=== PATIENT | female | born 1950 | race Caucasian/White ===

== ENCOUNTER 2020-10-27 12:05 | Emergency (ER) | payer OTHER ==
--- OUTSIDE RECORDS SUMMARY | 2020-10-27 12:08 | XMS REPORT | Continuity of Care Document ---
:1950 Author Organization [facility] t Address [address] [place] [address] Care Team Providers Name Role Phone Angie VALDEZ Primary Care Physician Russ Adams MD Attending Clinician Only, Test Attending Clinician Unavailable Doctor Unassigned, Name Attending Clinician Unavailable Payers Payer Name Policy Type Policy Number Effective Date Expiration Date S ource Problems This patient has no known problems. Allergies, Adverse Reactions, Alerts Allergy Allergy Status Severity Reaction(s) Onset Inactive Treating Comm ents Source Name Type Date Date Clinician meperidi DA Active [facility] ne 2-04 Clear 00:00: Mg 00 [facility] Meperidi Propensi Active Other (See [facility] ty to Comments) 724 ory Methodi adverse 00:00: Distress st reaction 00 s to drug Family History Family Member Diagnosis Comments Start Date Stop Date Source Natural father Emphysema [facility] Natural father Parkinsonism Vladimir Rios Maternal grandfather Hearing loss Ho nikos Rios Maternal grandmother Hearing loss [facility] Caodaism Natural mother Thyroid cancer [place] [facility]oda[facility] Social History Social Habit Start Date Stop Date Quantity Comments [facility] Alcohol Std Drinks History [facility] Meth odist Alcohol Binge Sex Assigned At [facility] ethodist Tobacco use and 2018-12-16 2018-12-16 Never used Vladimir Jalloh ethodist exposure 00:00:00 00:00:00 Alcohol intake 2018-12-16 2018-12-16 Current Vladimir Sim thodist 00:00:00 00:00:00 non-drinker of alcohol (finding) History SDOH 2018-12-15 2018-12-15 1 Vladimir Meth odist Alcohol Frequency 00:00:00 00:00:00 Smoking Status Start Date Stop Date Source Never smoker Gilbert Methodis t Medications Ordered Filled Start Stop Current Ordering Indication Dosage Frequency Signature Comments Components Source Medication Medication Date Date Medication? Clinician (SIG) Name Name guaiFENesin Yes 200mg [id number] Take 200 Gilbert (ROBITUSSIN 2-15 [id number] mg by Shubham crowe ) 100 mg/5 13:11: 3D mouth 3 st mL syrup 49 (three) times a day as needed for cough. fluticasone Yes 2{spray QD 2 sprays Gilbert (FLONASE) 2-15 } by Each Methodi 50 13:11: Nare route st mcg/actuati 49 daily. on nasal spray vit B comp Yes 1{tbl} QD Take 1 Luis ston no.3-folic- 2-15 tablet by Met hodi C-biotin 13:11: mouth st (NEPHRO-VIT 49 daily. E RX) 1-60-300 mg-mg-mcg tablet multivitami Yes 15mL QD Take 15 mL Gilbert ns & 2-15 by mouth Methodi minerals-fe 13:11: daily. st rrous 49 gluconate 9 mg iron/15 mL liquid calcium Yes 1{tbl} Q.5D Take 1 [place] carbonate-v 2-15 tablet by Met hodi itamin D3 13:11: mouth 2 st 500 mg-200 49 (two) unit per times a tablet day with meals. budesonide- Yes 2{puff} Q.5D Inhale 2 Gilbert formoterol 2-13 puffs 2 Method i (SYMBICORT) 00:00: (two) st 160-4.5 00 times a mcg/actuati day. on inhaler montelukast Yes 10mg QD Take 10 mg Gilbert (SINGULAIR) 1-17 by mouth Meth loren 10 mg 00:00: daily. st tablet 00 PROAIR HFA 2019-0 Yes 90ug Q4H Inhale 90 [place] 90 1-06 mcg every Methodi mcg/actuati 00:00: 4 (four) st on inhaler 00 hours as needed. amLODIPine Yes 5mg QD Take 5 mg Ho nikos (NORVASC) 5 1-06 by mouth Meth loren mg tablet 00:00: daily. st 00 atorvastati Yes 10mg QD Take 10 mg Gilbert n (LIPITOR) -06 by mouth Meth loren 10 MG 00:00: nightly. st tablet 00 citalopram Yes 20mg QD Take 20 mg H oujeb (CeleXA) 20 - by mouth Meth loren MG tablet 00:00: daily. st 00 meloxicam Yes 15mg QD Take 15 mg Ho nikos (MOBIC) 15 -02 by mouth Metho di mg tablet 00:00: daily. st 00 valsartan-h Yes 1{tbl} QD Take 1 Ho nikos ydrochlorot -02 tablet by Met hodi hiazide 00:00: mouth st (DIOVAN-HCT 00 daily. ) 320-12.5 mg per tablet Procedures This patient has no known procedures. Plan of Care Planned Activity Planned Date Details Comments Source Future Scheduled 2020-05-31 INFLUENZA VACCINE [place] [facility] Test 00:00:00 [code = INFLUENZA VACCINE] Future Scheduled 2017-02-04 65+ PNEUMOCOCCAL Gilbert Caodaism Test 00:00:00 VACCINE (1 of 1 - PPSV23) [code = 65+ PNEUMOCOCCAL VACCINE (1 of 1 - PPSV23)] Future Scheduled 2002-02-[address] [facility] thodist Test 00:00:00 SCREENING [code = BREAST CANCER SCREENING] Future Scheduled 2002-02-04 COLONOSCOPY SCREENING Ho nikos [facility] Test 00:00:00 [code = COLONOSCOPY SCREENING] Future Scheduled 2002-02-04 SHINGLES VACCINES (#1) [place] [facility] Test 00:00:00 [code = SHINGLES VACCINES (#1)] Future Scheduled 1968 COVID-19 VACCINE (#1) Ho nikos Ca[facility] Test 00:00:00 [code = COVID-19 VACCINE (#1)] Encounters Start End Encounter Admission Attending Care Care Encounter Source Date/Time Date/Time Type Type Clinicians Facility Department ID 2020-10-15 2020-10-15 [facility] [id number] 00:00:00 00:00:00 Ross Izaguirre [id number] [facility] [id number] Professio [id number] [address] 2020-09-23 2020-09-23 [facility] [id number] 00:00:00 00:00:00 Ross Izaguirre [id number] [facility] [id number] Professio [phone] [address] 2020-08-06 2020-08-06 [facility] [id number] 00:00:00 00:00:00 Ross Izaguirre [id number] [facility] [id number] Professio [phone] [address] 2020-07-30 2020-07-30 Laboratory Only, [facility] [id number] 09:54:15 10:09:15 Only Test Zina [id number] [place] [id number] [place] [id number] 2020-07-30 2020-07-30 Orders Doctor SATISH [id number] 00:00:00 00:00:00 Only Unassigned, CLARKE [id number] [place] [facility] [id number] 009 2020-07-28 2020-07-28 [facility] [id number] 00:00:00 00:00:00 Ross Izaguirre [id number] [place] [id number] Professio [id number] [address] 2020-05-14 2020-05-14 Pre Visit [facility] [id number] 00:00:00 00:00:00 Outreach Ross Izaguirre [id number] Eddevika Mendez [id number] Professio [phone] nal [address] [place] [address] 2020-05-09 2020-05-09 Refill Angie [facility] [id number] 00:00:00 00:00:00 Ross Izaguirre [id number] Russ Mendez [id number] Professio [phone] [address] 2020-03-25 2020-03-25 Telemedici Angie [facility] [id number] 07:51:56 08:06:56 ne Visit Ross Izaguirre [id number] Russ Mendez [id number] Profeladiaio [phone] [address] Results Test Description Test Time Test Comments Results Result Comments Source TROPONIN-I RAPID 2019-12-04 23:09:00 Test Item Value Reference Range Interpretation Comme nts TROPONIN-I RAPID (test code = 0.00 ng/mL 0.00-0.08 N Performed by certified metal shaping machine operator TROPIRAP) at [facility] Negative: <= 0.08 Positive: >= 0.09An elevated tropon in value alone is not sufficient todiagnose a myocardial infa rction. Rather, the patient scl inical presentation (h istory, physical exam) and ECGsh ould be used in conjunction wit h troponin in thediagnostic e valuation of suspected myoca rdial infarction. Aserial samplin g protocol is recommended to facilitate the identification of temporal changes in trop onin levels characteristic of NV. - XR CHEST 2 [id number] 20:56:00 FAX: Genaro Soria MD [phone] [place]: St: PRE Name: LOPEZROMEROKandis MOFFETT [facility] : 1950 Age/S: 69/F [address] [place] [address] Blvd Unit#: [id number] Loc: A[place]IL[place] [address] Phys: Genaro Soria MD Acct: [id number] Dis Date: Status: PRE ER PHONE #: [phone] Exam Date: 12/04/20192047 FAX #: [phone] Reason: Chest Pain EXAMS: CPT CODE: [id number] XR CHEST 2 V 07922 Clinical Indication: Chest Pain Comparison: None FINDINGS: The frontal and lateral chest radiographs show normal lung volumes. No interstitial or airspace opacities are seen. No pleural effusions are present. No pneumothorax is seen. The heart is normal in size. The trachea is midline. There are no clinically significant osseous abnormalities noted. IMPRESSION:No chest radiographic evidence of acute cardiopulmonary disease. SL: SHAWN at 2055 Reported and signed by: King Boothe M.D. CC: Genaro Soria MD Technologist: RT Sy(R) Trnscrd Date/Time/By: 12/04/2019 (2055) : By: Jean.LNV Orig Print D/T: S: 12/04/2019 (2058) PAGE 1 Signed ReportBASIC METABOLIC [id number] 20:49:00 Test Item Value Reference Range Interpretation Comments SODIUM (test code = NA) 134 mEq/L 134-147 N POTASSIUM (test code = 3.6 mEq/L 3.4-5.0 N K) CHLORIDE (test code = 97 mEq/L 100-108 L CL) CARBON DIOXIDE (test 32 mEq/L 21-33 N code = CO2) ANION GAP (test code = 9 0-20 N GAP) GLUCOSE (test code = 98 mg/dL 70-110 N GLU) BLOOD UREA NITROGEN 16 mg/dL 7-18 N (test code = BUN) GLOMERULAR FILTRATION 83.5 80-90 N Units of measure = RATE (test code = GFR) ml/mi n/1.73 m2 CREATININE (test code = 0.7 mg/dL 0.6-1.3 N CREAT) CALCIUM (test code = 9.3 mg/dL 8.0-10.5 N CA) BASIC METABOLIC [id number] 20:46:00 Test Item Value Reference Range Interpretation Comments SODIUM (test code = NA) 134 mEq/L 134-147 N POTASSIUM (test code = K) 3.6 mEq/L 3.4-5.0 N CHLORIDE (test code = CL) 97 mEq/L 100-108 L CARBON DIOXIDE (test code = CO2) 32 mEq/L 21-33 N ANION GAP (test code = GAP) 9 0-20 N GLUCOSE (test code = GLU) 98 mg/dL 70-110 N BLOOD UREA NITROGEN (test code = 16 mg/dL 7-18 N BUN) GLOMERULAR FILTRATION RATE (test 80-90 code = GFR) CREATININE (test code = CREAT) mg/dL 0.6-1.3 CALCIUM (test code = CA) 9.3 mg/dL 8.0-10.5 N CBC W/AUTO [id number] 20:36:00 Test Item Value Reference Range Interpretation Comments WHITE BLOOD CELL (test code = 9.44 x10 3/uL 4.5-11.0 N WBC) RED BLOOD CELL (test code = 4.23 x10 6/uL 3.54-5.02 N RBC) HEMOGLOBIN (test code = HGB) 13.4 g/dL 11.0-15.0 N HEMATOCRIT (test code = HCT) 41.6 % 33.0-45.0 N MEAN CELL VOLUME (test code = 98.3 fL 81.0-99.0 N MCV) MEAN CELL HGB (test code = MCH) 31.7 pg 27.0-33.0 N MEAN CELL HGB CONCETRATION 32.2 g/dL 33.0-37.0 L (test code = MCHC) RED CELL DISTRIBUTION WIDTH CV 13.0 % 11.5-14.5 N (test code = RDW) RED CELL DISTRIBUTION WIDTH SD 46.6 fL 37.0-54.0 N (test code = RDW-SD) PLATELET COUNT (test code = 272 x10 3/uL 150-400 N PLT) MEAN PLATELET VOLUME (test code 11.5 fL 7.0-9.0 H = MPV) NEUTROPHIL % (test code = NT%) 70.2 % 56.0-77.0 N IMMATURE GRANULOCYTE % (test 0.4 % 0.0-2.0 N code = IG%) LYMPHOCYTE % (test code = LY%) 20.6 % 14.0-32.0 N MONOCYTE % (test code = MO%) 6.0 % 4.8-9.0 N EOSINOPHIL % (test code = EO%) 2.3 % 0.3-3.7 N BASOPHIL % (test code = BA%) 0.5 % 0.0-2.0 N NUCLEATED RBC % (test code = 0.0 % 0-0 N NRBC%) NEUTROPHIL # (test code = NT#) 6.62 x10 3/uL 2.0-7.6 N IMMATURE GRANULOCYTE # (test 0.04 x10 3/uL 0.00-0.03 H code = IG#) LYMPHOCYTE # (test code = LY#) 1.94 x10 3/uL 1.0-3.8 N MONOCYTE # (test code = MO#) 0.57 x10 3/uL 0.1-0.8 N EOSINOPHIL # (test code = EO#) 0.22 x10 3/uL 0.0-0.2 H BASOPHIL # (test code = BA#) 0.05 x10 3/uL 0.0-0.2 N NUCLEATED RBC # (test code = 0.00 x10 3/uL 0.0-0.1 N NRBC#) MANUAL DIFF REQUIRED (test code NO = MDIFF) TROPONIN-I [id number] 20:09:00 Test Item Value Reference Range Interpretation Comments TROPONIN-I RAPID 0.00 ng/mL 0.00-0.08 N Performed b y certified (test code = metal shaping machine operator at [facility]) [facility]tr Negative: <= 0.0 8 Positive: >= 0.09An elevated troponin value alone is not sufficient todi agnose a myocardial infa rction. Rather, the pat ient sclinical prese ntation (history, physi marisa exam) and ECGshould b e used in conjunction wit h troponin in thediagnosti c evaluation of s uspected myocardial infa rction. Aserial samplin g protocol is recommended to facilitate the identification of temporal changes in trop onin levels characteristic of NV. UR COMPREHENSIVE DRUG [id number] 21:15:00 Test Item Value Reference Range Interpretation Comments DRUGS DETECTED IN URINE (test code = DRUGTU) ALCOHOL ETHYL [id number] 21:15:00 Test Item Value Reference Range Interpretation Comments ALCOHOL ETHYL BLOOD (test code = MRO ALCETH) UR COMPREHENSIVE DRUG [id number] 21:15:00 Test Item Value Reference Range Interpretation Comments DRUGS DETECTED IN URINE [place] [facility] [facility] (test code = DRUGTU) ALCOHOL ETHYL [id number] 21:15:00 Test Item Value Reference Range Interpretation Comments ALCOHOL ETHYL BLOOD (test code = HUMA BURNS)
--- OUTSIDE RECORDS SUMMARY | 2020-10-27 12:08 | XMS REPORT | Clinical Summary ---
:1950 Author Organization [facility] Address [address] [place] [address] Care Team Providers Name Role Phone MD Angie Primary Care Provider Allergies Active Allergy Reactions Severity Noted Date Comments Meperidine Other (See Comments) 05/23/2017 Respir atory Distress Medications Medication Sig Dispensed Refills Start Date End Date Status PROAIR HFA 90 Inhale 90 mcg 1 11/05/2018 A ctive mcg/actuation inhaler every 4 (four) hours as needed. amLODIPine (NORVASC) 5 Take 5 mg by 4 11/05/2018 Active mg tablet mouth daily. atorvastatin (LIPITOR) Take 10 mg by 4 11/05/2018 Active 10 MG tablet mouth nightly. budesonide-formoterol Inhale 2 puffs 2 0 12/13/2018 Active (SYMBICORT) 160-4.5 (two) times a mcg/actuation inhaler day. citalopram (CeleXA) 20 Take 20 mg by 0 03/01/2018 Active MG tablet mouth daily. meloxicam (MOBIC) 15 mg Take 15 mg by 0 03/01/2018 Active tablet mouth daily. montelukast (SINGULAIR) Take 10 mg by 0 11/16/2018 Active 10 mg tablet mouth daily. valsartan-hydrochlorothi Take 1 tablet by 0 03/01/20 18 Active azide (DIOVAN-HCT) mouth daily. 320-12.5 mg per tablet guaiFENesin (ROBITUSSIN) Take 200 mg by 0 Active 100 mg/5 mL syrup mouth 3 (three) times a day as needed for cough. fluticasone (FLONASE) 50 2 sprays by Each 0 Active mcg/actuation nasal Nare route spray daily. vit B comp Take 1 tablet by 0 Ac tive no.2-gvnob-F-biotin mouth daily. (NEPHRO-CAMELIA RX) 1-60-300 mg-mg-mcg tablet multivitamins & Take 15 mL by 0 Active minerals-ferrous mouth daily. gluconate 9 mg iron/15 mL liquid calcium Take 1 tablet by 0 Act cayla carbonate-vitamin D3 500 mouth 2 (two) mg-200 unit per tablet times a day with meals. Active Problems Not on file Surgical History Surgery Date Site/Laterality Comments APPENDECTOMY 10/31/1957 - 10/30/1958 BREAST BIOPSY 10/31/1984 - 10/30/1985 TONSILLECTOMY 10/31/1958 - 10/30/1959 WISDOM TOOTH EXTRACTION 10/31/1975 - 10/30/1976 ECTOPIC SURGERY 10/31/1981 - 10/30/1982 BUNIONECTOMY 10/31/1997 - 10/30/1998 BRONCHOSCOPY 12/15/2018 N/A Procedure: [facility] H[facility]COPY WITH BIOPSY, WAS H, AND BRUSH; Surgeon: Mahsa Davies MD; Location: [facility] Bronchoscopy; S ervice: Pulmonary; Late rality: N/A; Medical History Medical History Date Comments Hypertension Hyperlipidemia Depression Chronic osteoarthritis PONV (postoperative nausea and vomiting) Family History Medical History Relation Name Comments Emphysema Father Parkinsonism Father Hearing loss Maternal Grandfather Hearing loss Maternal Grandmother Thyroid cancer Mother Relation Name Status Comments Father Maternal Grandfather Maternal Grandmother Mother Social History Tobacco Use Types Packs/Day Years Used Date Never Smoker Smokeless Tobacco: Never Used Alcohol Use Drinks/Week oz/Week Comments No Alcohol Habits Answer Date Recorded How often do you have a drink containing alcohol? Never 12/15/2018 How many drinks containing alcohol do you have on a typical Not asked day when you are drinking? How often do you have six or more drinks on one occasion? 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 Vital Signs Not on file Plan of Treatment Health Maintenance Due Date Last Done Comments COVID-19 VACCINE (#1) 1968 BREAST CANCER SCREENING 02/04/2002 COLONOSCOPY SCREENING 02/04/2002 SHINGLES VACCINES (#1) 02/04/2002 65+ PNEUMOCOCCAL VACCINE (1 of - PPSV23) 02/04/2017 INFLUENZA VACCINE 05/31/2020 Results Not on fileafter 10/27/2019 Insurance Payer Benefit Plan / Subscriber ID Effective Dates Phone Addre ss Type Group HUMANA MEDICARE HUMANA MEDICARE [id number] 2018-Present PPO PPO/PFFS/ERS [facility] Advance Directives For more information, please contact: [phone] Type Date Recorded 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
[2020-10-27] MEDS ORDERED: DIPHENHYDRAMINE 25 MG TAB/CAP ONE (13:16)
[2020-10-27] MEDS ORDERED: IBUPROFEN 400 MG TAB ONE (13:17)
--- NOTE | 2020-10-27 13:40 | EDPHYS ---
Physician Documentation [facility] Name: Griselda Nieto Age: 70 yrs Sex: Female : 1950 Arrival Date: 10/27/2020 Time: 12:07 Bed 13 Private MD: ED Physician Isaiah Rothman HPI: 10/27 12:45 This 70 yrs old Female presents to ER via Wheelchair with complaints of rn vaccine reaction. 12:46 Reports just had COVID vaccine, left arm, felt lightheaded, headache, and flushed. rn Reports had similar but worse reaction to shingles vaccine. No syncope. Feels better now. No sob or swelling. No rash. No swelling at sight of injection. . Onset: The symptoms/episode began/occurred just prior to arrival. Severity of symptoms: At their worst the symptoms were moderate in the emergency department the symptoms have improved. The patient has experienced a previous episode. The patient has not recently seen a physician. Historical: - Allergies: 12:14 Demerol; ll1 - PMHx: 12:14 Hypertension; Asthma; ll1 - PSHx: 12:14 Breast biopsy; falopian tube removed; R knee meniscus; Appendectomy; Tonsillectomy; ll1 - Immunization history:: Flu vaccine is up to date. - Social history:: Smoking status: Patient denies any tobacco usage or history of. - Family history:: not pertinent. - Hospitalizations: : No recent hospitalization is reported. ROS: 12:46 Constitutional: Negative for fever, chills, and weight loss, Eyes: Negative for injury, rn pain, redness, and discharge, Neck: Negative for injury, pain, and swelling, Cardiovascular: Negative for chest pain, palpitations, and edema, Respiratory: Negative for shortness of breath, cough, wheezing, and pleuritic chest pain, Abdomen/GI: Negative for abdominal pain, nausea, vomiting, diarrhea, and constipation, Back: Negative for injury and pain, : Negative for injury, bleeding, discharge, and swelling, MS/Extremity: Negative for injury and deformity, Skin: Negative for injury, rash, and discoloration, Neuro: Negative for headache, numbness, tingling, and seizure. Exam: 12:46 Constitutional: This is a well developed, well nourished patient who is awake, alert, rn and in no acute distress. Head/Face: Normocephalic, atraumatic. ENT: No stridor Cardiovascular: Regular rate and rhythm. No pulse deficits. Respiratory: No increased work of breathing, no retractions or nasal flaring. Skin: Warm, dry, no rash MS/ Extremity: Pulses equal, no cyanosis. Neuro: Awake and alert, GCS 15 Vital Signs: 12:19 BP 186 / 86; Pulse 69; Resp 17; Temp 98.2; Pulse Ox 98% ; Pain 8/10; ll1 13:13 BP 171 / 87; Pulse 67; Resp 18; Pulse Ox 96% on R/A; em MDM: 12:15 Patient medically screened. rn 13:38 Differential Diagnosis vaccination reaction, adverse reaction, allergic reaction. Data rn reviewed: vital signs, nurses notes, and as a result, I will discharge patient. Counseling: I had a detailed discussion with the patient and/or guardian regarding: the historical points, exam findings, and any diagnostic results supporting the discharge/admit diagnosis, the need for outpatient follow up, to return to the emergency department if symptoms worsen or persist or if there are any questions or concerns that arise at home. Response to treatment: the patient's symptoms have markedly improved after treatment, and as a result, I will discharge patient. Special discussion: I discussed with the patient/guardian in detail that at this point there is no indication for admission to the hospital. It is understood, however, that if the symptoms persist or worsen the patient needs to return immediately for re-evaluation. Administered Medications: 13:05 Drug: Benadryl 50 mg Route: PO; em 13:30 Follow up: Response: No adverse reaction; Marked relief of symptoms em 13:05 Drug: Motrin 800 mg Route: PO; em 13:30 Follow up: Response: No adverse reaction em Disposition: 10/27/20 13:40 Discharged to Home. Impression: Postvaccination reaction. - Condition is Stable. - Discharge Instructions: Post-Injection Inflammatory Reaction. - Medication Reconciliation Form, Thank You Letter, Antibiotic Education, Prescription Opioid Use form. - Follow up: Private Physician; When: As needed; Reason: Recheck today's complaints, Re-evaluation by your physician. - Problem is new. - Symptoms have improved. Signatures: Jose Daniel Hunter RN RN em Isaiah Rothman MD MD rn Lewis, Lynsay, RN RN ll1 Corrections: (The following items were deleted from the chart) 14:02 13:40 10/27/2020 13:40 Discharged to Home. Impression: Postvaccination reaction. em Condition is Stable. Forms are Medication Reconciliation Form, Thank You Letter, Antibiotic Education, Prescription Opioid Use. Follow up: Private Physician; When: As needed; Reason: Recheck today's complaints, Re-evaluation by your physician. Problem is new. Symptoms have improved. rn
--- NOTE | 2020-10-27 13:40 | ER ---
Nurse's Notes [facility] Name: Griselda Nieto Age: 70 yrs Sex: Female : 1950 Arrival Date: 10/27/2020 Time: 12:07 Bed 13 Private MD: Diagnosis: Postvaccination reaction Presentation: 10/27 12:19 Chief complaint: Patient states: Got covid vaccine 1 hour COMPLIANCE MGR. Started to have ll1 weakness, fatigue, body aches, ORTIZ since. Coronavirus screen: Client denies travel out of the [place] in the last 14 days. At this time, the client does not indicate any symptoms associated with coronavirus-19. Ebola Screen: Patient denies travel to an Ebola-affected area in the 21 days before illness onset. No acute neurological deficit is noted. Initial Sepsis Screen: Does the patient meet any 2 criteria? No. Patient's initial sepsis screen is negative. Does the patient have a suspected source of infection? No. Patient's initial sepsis screen is negative. Risk Assessment: Do you want to hurt yourself or someone else? Patient reports no desire to harm self or others. Onset of symptoms was October 27, 2020. 12:19 Method Of Arrival: Wheelchair ll1 12:19 Acuity: AMBROCIO 3 ll1 Stroke Activation: Physician: Stroke Attending; Name: ; Notified At: ; Arrived At: Physician: Chief Stroke Resident; Name: ; Notified At: ; Arrived At: Physician: Stroke Resident; Name: ; Notified At: ; Arrived At: Physician: ED Attending; Name: ; Notified At: ; Arrived At: Physician: ED Resident; Name: ; Notified At: ; Arrived At: 12:19 n/a ll1 Historical: - Allergies: 12:14 Demerol; ll1 - PMHx: 12:14 Hypertension; Asthma; ll1 - PSHx: 12:14 Breast biopsy; falopian tube removed; R knee meniscus; Appendectomy; Tonsillectomy; ll1 - Immunization history:: Flu vaccine is up to date. - Social history:: Smoking status: Patient denies any tobacco usage or history of. - Family history:: not pertinent. - Hospitalizations: : No recent hospitalization is reported. Screenin:05 Abuse screen: Denies threats or abuse. Nutritional screening: No deficits noted. em Tuberculosis screening: No symptoms or risk factors identified. Fall Risk None identified. Assessment: 13:00 General: Appears in no apparent distress. comfortable, Behavior is calm, cooperative, em appropriate for age. Pain: Complains of pain in head Pain currently is 8 out of 10 on a pain scale. Neuro: Level of Consciousness is awake, alert, obeys commands, Oriented to person, place, time, situation, Appropriate for age Reports headache weakness. Cardiovascular: Capillary refill < 3 seconds Patient's skin is warm and dry. Respiratory: Airway is patent Respiratory effort is even, unlabored, Respiratory pattern is regular, symmetrical. Derm: Skin is intact, is healthy with good turgor, Skin is pink, warm \T\ dry. no redness or swelling at the injection site. Musculoskeletal: Capillary refill < 3 seconds, Range of motion: intact in all extremities. 13:30 Reassessment: Patient appears in no apparent distress at this time. Patient and/or em family updated on plan of care and expected duration. Pain level reassessed. Patient is alert, oriented x 3, equal unlabored respirations, skin warm/dry/pink. Patient states feeling better. Vital Signs: 12:19 BP 186 / 86; Pulse 69; Resp 17; Temp 98.2; Pulse Ox 98% ; Pain 8/10; ll1 13:13 BP 171 / 87; Pulse 67; Resp 18; Pulse Ox 96% on R/A; em ED Course: 12:07 Patient arrived in ED. rg4 12:12 Arm band placed on left wrist. ll1 12:15 Isaiah Rothman MD is Attending Physician. rn 12:21 Triage completed. ll1 12:21 Patient placed in an exam room, on a stretcher. ll1 12:45 Jose Daniel Hunter, FAYE is Primary Nurse. em 13:05 Patient has correct armband on for positive identification. Bed in low position. Call em light in reach. Pulse ox on. NIBP on. 14:01 No provider procedures requiring assistance completed. Patient did not have IV access em during this emergency room visit. Administered Medications: 13:05 Drug: Benadryl 50 mg Route: PO; em 13:30 Follow up: Response: No adverse reaction; Marked relief of symptoms em 13:05 Drug: Motrin 800 mg Route: PO; em 13:30 Follow up: Response: No adverse reaction em Outcome: 13:40 Discharge ordered by . rn 14:01 Discharged to home ambulatory. em 14:01 Condition: good 14:01 Discharge instructions given to patient, Instructed on discharge instructions, follow up and referral plans. Demonstrated understanding of instructions, follow-up care. 14:02 Patient left the ED. em Signatures: Jose Daniel Hunter, RN RN Isaiah Camargo MD MD rn Garcia, Rubi 4 Swetha Gomez RN RN ll1
[2020-10-27 14:16] VITALS: TEMP 98.2
[2020-10-27 14:17] VITALS: BP 171/87; O2SAT 96
== END 2020-10-27 14:02 | disposition home or self-care (01) ==
LOC: ER 12:05
DX: T88.1XXA Other complications following immunization, not elsewhere classified, initial encounter (principal); I10 Essential (primary) hypertension; Z88.5 Allergy status to narcotic agent
CPT/HCPCS: 99283

== ENCOUNTER 2021-09-05 17:52 | Emergency (ER) | payer OTHER ==
--- NOTE | 2021-09-05 19:29 | RAD REPORT ---
EXAM DESCRIPTION: RAD - Foot Left 3 View - 09/05/2021 7:02 pm CLINICAL HISTORY: PAIN COMPARISON: No comparisons FINDINGS: No acute fracture. Pes planus. Midfoot degenerative changes. IMPRESSION: No acute osseous abnormality involving the left foot.
--- NOTE | 2021-09-05 19:29 | RAD REPORT ---
EXAM DESCRIPTION: RAD - Ankle Left 3 View - 09/05/2021 7:02 pm CLINICAL HISTORY: PAIN COMPARISON: Foot Left 3 View dated 09/05/2021 FINDINGS: No acute fracture. No malalignment. No significant focal degenerative changes. IMPRESSION: No acute osseous abnormality involving the left ankle.
--- NOTE | 2021-09-05 19:30 | RAD REPORT ---
EXAM DESCRIPTION: US - Extremity Venous Uni Ltd - 09/05/2021 7:16 pm CLINICAL HISTORY: Swelling COMPARISON: None. TECHNIQUE: Real-time sonographic evaluation of the left lower extremity deep venous system was perfo rmed. FINDINGS: Normal compressibility, flow augmentation, phasic flow and spontaneous flow is identified in the left lower extremity deep venous system. No intraluminal filling defects seen. IMPRESSION: No DVT in the left lower extremity.
[2021-09-05] MEDS ORDERED: ACETAMINOPHEN 500 MG TAB ONE (19:48)
[2021-09-05] MEDS ORDERED: IBUPROFEN 400 MG TAB ONE (19:49)
--- NOTE | 2021-09-05 19:55 | ER ---
Nurse's Notes [facility] Name: Griselda Nieto Age: 71 yrs Sex: Female : 1950 Arrival Date: 09/05/2021 Time: 17:53 Bed 7 Private MD: Ross Adams Diagnosis: Sprain of ankle-left Presentation: 09/05 18:16 Chief complaint: Patient states: On states "stepped of car wrong" on Left vg1 ankle. Went to work on Tuesday and throughout the day felt sore. Today noticed the swelling and pain radiation up toward the lateral side of Left leg. Coronavirus screen: Vaccine status: Patient reports receiving the 2nd dose of the covid vaccine. Ebola Screen: Patient negative for fever greater than or equal to 101.5 degrees Fahrenheit, and additional compatible Ebola Virus Disease symptoms. Initial Sepsis Screen: Does the patient meet any 2 criteria? No. Patient's initial sepsis screen is negative. Does the patient have a suspected source of infection? No. Patient's initial sepsis screen is negative. Risk Assessment: Do you want to hurt yourself or someone else? Patient reports no desire to harm self or others. Onset of symptoms was September 03, 2021. 18:16 Method Of Arrival: Ambulatory vg1 18:16 Acuity: AMBROCIO 4 vg1 Triage Assessment: 18:19 General: Appears in no apparent distress. uncomfortable, Behavior is calm, cooperative. vg1 Pain: Complains of pain in left lateral ankle. Historical: - Allergies: 18:19 Demerol; vg1 - Home Meds: 18:19 valsartan-hydrochlorothiazide oral [Active]; amlodipine oral [Active]; Potassium vg1 Chloride Oral [Active]; Lipitor Oral [Active]; Celexa Oral [Active]; Osteo Bi-Flex oral [Active]; Tylenol Arthritis Pain oral [Active]; - PMHx: 18:19 Asthma; Hypertension; Hyperlipidemia; vg1 - Immunization history:: Adult Immunizations up to date, Client reports receiving the 2nd dose of the Covid vaccine. - Social history:: Smoking status: Patient denies any tobacco usage or history of. Screenin:40 Abuse screen: Denies threats or abuse. Denies injuries from another. Nutritional jt3 screening: No deficits noted. Tuberculosis screening: No symptoms or risk factors identified. Fall Risk None identified. Assessment: 18:40 General: Appears in no apparent distress. Behavior is calm, cooperative. Pain: jt3 Complains of pain in left foot and left leg Pain radiates to left leg Pain currently is 6 out of 10 on a pain scale. Quality of pain is described as throbbing, Pain began 2-3 days ago. Cardiovascular: No deficits noted. Musculoskeletal: Reports pain in left leg Denies numbness in, left foot and left leg. 19:52 Pain: Complains of pain in left Achilles, left lateral malleolus and left medial tw5 malleolus Pain currently is 8 out of 10 on a pain scale. Vital Signs: 18:16 BP 155 / 77; Pulse 70; Resp 16; Temp 98.7; Pulse Ox 99% ; Weight 71.67 kg; Height 5 ft. vg1 3 in. (160.02 cm); Pain 8/10; 19:52 BP 165 / 79; Pulse 68; Resp 18; Pulse Ox 100% on R/A; Pain 8/10; tw5 18:16 Body Mass Index 27.99 (71.67 kg, 160.02 cm) vg1 ED Course: 17:53 Patient arrived in ED. mr 17:53 Ross Adams MD is Private Physician. mr 18:19 Triage completed. vg1 18:19 Arm band placed on. vg1 18:35 Du Andrews, FAYE is Primary Nurse. jt3 18:40 Patient has correct armband on for positive identification. Bed in low position. Call jt3 light in reach. Side rails up X2. 18:40 No provider procedures requiring assistance completed. jt3 18:41 Tj Rushing PA is PHCP. cp 18:41 Antony Chavarria MD is Attending Physician. cp 19:02 XRAY Ankle LEFT 3 view In Process Unspecified. EDMS 19:02 XRAY Foot LEFT 3 View In Process Unspecified. EDMS 19:16 US Extremity Venous Unilateral Ltd In Process Unspecified. EDMS 19:22 Primary Nurse role handed off by Du Andrews, FAYE tt3 19:48 Jesi Cherry is Primary Nurse. tw5 19:52 Tl Trevino MD is Referral Physician. cp 20:08 walking boot applied- small left foot. tw5 20:09 Patient did not have IV access during this emergency room visit. tw Administered Medications: 19:52 Drug: Ibuprofen 800 mg Route: PO; 20:08 Follow up: Response: No adverse reaction tw5 19:52 Drug: Tylenol 1000 mg Route: PO; 20:08 Follow up: Response: No adverse reaction Outcome: 19:55 Discharge ordered by . marco 20:08 Discharged to home ambulatory. :08 Condition: stable 20:08 Discharge instructions given to patient, Instructed on discharge instructions, wound care, Demonstrated understanding of instructions, Prescriptions given X 1. 20:12 Patient left the ED. Signatures: Dispatcher [employer] EDMatilde Sorto Corey, PA PA cp Garcia, Victoria, RN RN vg1 Tian Lopez3 Jesi Cherry tw5 Du Andrews RN RN jt3
--- NOTE | 2021-09-05 19:55 | EDPHYS ---
Physician Documentation [facility] Name: Griselda Nieto Age: 71 yrs Sex: Female : 1950 Arrival Date: 09/05/2021 Time: 17:53 Bed 7 Private MD: Ross Adams ED Physician Antony Chavarria HPI: 09/05 18:45 This 71 yrs old Female presents to ER via Ambulatory with complaints of Ankle cp Swelling. 18:45 The patient presents with an injury, pain, that is acute, swelling, tenderness. cp 18:45 The complaints affect the left ankle. cp 18:45 Onset: The symptoms/episode began/occurred 2 day(s) ago. cp 18:45 Context: resulted from a mis-step by the patient, The mechanism of injury involved cp inversion of the affected ankle. The patient can fully bear weight on the affected extremity. the patient is able to ambulate, with mild difficulty. Associated signs and symptoms: Pertinent positives: calf tenderness, swelling, Pertinent negatives: numbness, tingling, warmth. Modifying factors: the symptoms are aggravated by weight bearing, movement. Historical: - Allergies: 18:19 Demerol; vg1 - Home Meds: 18:19 valsartan-hydrochlorothiazide oral [Active]; amlodipine oral [Active]; Potassium vg1 Chloride Oral [Active]; Lipitor Oral [Active]; Celexa Oral [Active]; Osteo Bi-Flex oral [Active]; Tylenol Arthritis Pain oral [Active]; - PMHx: 18:19 Asthma; Hypertension; Hyperlipidemia; vg1 - Immunization history:: Adult Immunizations up to date, Client reports receiving the 2nd dose of the Covid vaccine. - Social history:: Smoking status: Patient denies any tobacco usage or history of. ROS: 18:50 MS/extremity: Positive for pain, swelling, tenderness, Negative for paresthesias. cp 18:50 Constitutional: Negative for body aches, chills, fever. cp 18:50 Neck: Negative for pain with movement, pain at rest, stiffness. 18:50 Cardiovascular: Negative for chest pain. 18:50 Respiratory: Negative for cough, shortness of breath, wheezing. 18:50 Abdomen/GI: Negative for abdominal pain, nausea, vomiting, and diarrhea. 18:50 Back: Negative for pain at rest, pain with movement. 18:50 Neuro: Negative for altered mental status, headache, numbness, tingling, weakness. 18:50 All other systems are negative. Exam: 18:55 Constitutional: The patient appears in no acute distress, alert, awake, non-toxic, well cp developed, well nourished. 18:55 Head/Face: Normocephalic, atraumatic. cp 18:55 Cardiovascular: Rate: normal. 18:55 Respiratory: the patient does not display signs of respiratory distress, Respirations: normal, no use of accessory muscles, no retractions. 18:55 Musculoskeletal/extremity: Extremities: grossly normal except: noted in the left lateral malleolus: pain, swelling, tenderness, ROM: limited passive range of motion due to pain, in the left ankle, Pulses: noted to be 2+ in the left dorsalis pedis artery, Sensation intact. DVT Exam: swelling, that is mild, of the left leg, tenderness, that is mild, of the left leg, Achilles tendon palpated and intact. Vital Signs: 18:16 BP 155 / 77; Pulse 70; Resp 16; Temp 98.7; Pulse Ox 99% ; Weight 71.67 kg; Height 5 ft. vg1 3 in. (160.02 cm); Pain 8/10; 19:52 BP 165 / 79; Pulse 68; Resp 18; Pulse Ox 100% on R/A; Pain 8/10; tw5 18:16 Body Mass Index 27.99 (71.67 kg, 160.02 cm) vg1 Procedures: 20:15 Splinting: Splint applied to left ankle using walking boot. applied by nurse. Examined cp by me, post splint application: neurovascular intact, Patient tolerated well. MDM: 18:44 Patient medically screened. cp 19:55 Data reviewed: vital signs, nurses notes, radiologic studies, plain films, ultrasound. cp 19:55 Differential diagnosis: fracture, sprain, dislocation, DVT. Test interpretation: by ED cp physician or midlevel provider: plain radiologic studies. Counseling: I had a detailed discussion with the patient and/or guardian regarding: the historical points, exam findings, and any diagnostic results supporting the discharge/admit diagnosis, lab results, radiology results, to return to the emergency department if symptoms worsen or persist or if there are any questions or concerns that arise at home. Response to treatment: the patient's symptoms have markedly improved after treatment, and as a result, I will discharge patient. 09/05 18:32 Order name: XRAY Ankle LEFT 3 view; Complete Time: 19:51 ma2 09/05 19:51 Interpretation: Report reviewed. cp 09/05 18:32 Order name: XRAY Foot LEFT 3 View; Complete Time: 19:51 ma2 09/05 19:52 Interpretation: Reviewed report. cp 09/05 18:45 Order name: US Extremity Venous Unilateral Ltd; Complete Time: 19:51 cp 09/05 19:52 Interpretation: Report reviewed. cp 09/05 19:52 Order name: Walking boot; Complete Time: 20:08 cp Administered Medications: 19:52 Drug: Ibuprofen 800 mg Route: PO; tw5 20:08 Follow up: Response: No adverse reaction tw5 19:52 Drug: Tylenol 1000 mg Route: PO; tw5 20:08 Follow up: Response: No adverse reaction tw5 Disposition: 20:15 Chart complete. cp Disposition Summary: 09/05/21 19:55 Discharge Ordered Location: Home cp Problem: new cp Symptoms: have improved cp Condition: Stable cp Diagnosis - Sprain of ankle - left cp Followup: cp - With: Tl Trevino MD - When: 5 - 6 days - Reason: Recheck today's complaints Discharge Instructions: - Discharge Summary Sheet cp - Ankle Sprain cp Forms: - Medication Reconciliation Form cp - Thank You Letter cp - Work release form em - Antibiotic Education cp - Prescription Opioid Use cp Prescriptions: - Ibuprofen 800 mg Oral Tablet - take 1 tablet by ORAL route every 8 hours As needed take with food; 30 tablet; cp Refills: 0, Product Selection Permitted Addendum: 09/14/2021 05:28 Co-signature as Attending Physician, Antony Chavarria MD PA/ACTUARIAL ASSOCIATE's history reviewed, m a2 patient interviewed, and examined. I agree with assessment and care plan and confirm the diagnosis (es) above. Signatures: Dispatcher [employer] EDMS Tj Rushing PA PA cp Alzahri, Mohammad, MD MD ma2 Garcia, Victoria, RN RN vin1 Jesi Cherry tw5
[2021-09-05 20:19] VITALS: TEMP 98.7
[2021-09-05 20:21] VITALS: BP 165/79; O2SAT 100
--- OUTSIDE RECORDS SUMMARY | 2021-09-12 14:42 | XMS REPORT | Continuity of Care Document ---
:1950 Author Organization [facility] t Address [address] [place] [address] Care Team Providers Name Role Phone Russ Lopes MD Primary Care Physician Russ Lopes MD Attending Clinician Jose A VALDEZ Attending Clinician RUSS LOPES Attending Clinician Unavailable Ean Wilson DO Attending Clinician Kandis Griffith Attending Clinician Unavailable Only, Test Attending Clinician Unavailable Gino VALDEZ Attending Clinician GINO Attending Clinician Unavailable Doctor Unassigned, Name Attending Clinician Unavailable Aristides Lopes Admitting Clinician Unavailable Payers Payer Name Policy Type Policy Number Effective Date Expiration Date S ource Problems Condition Condition Condition Status Onset Resolution Last Treating Co mments Source Name Details Category Date Date Treatment Clinician Date Hypokalemi Hypokalemi Disease Active U nivers a a 6-25 ity of 00:00: [address] Depression Depression Disease Active U nivers 2-23 ity of 00:: [address] Hyperlipid Hyperlipid Disease Active U nivers emia emia 2-23 ity of 00:00: [address] HTN HTN Disease Active Univers (hypertens (hypertens 2-23 it y of ion) ion) 00:00: [place] 00 [facility] Allergic Allergic Disease Active Unive rs rhinitis rhinitis 12-23 ity of 00:00: [place] 00 [facility] Osteoarthr Osteoarthr Disease Active U nivers itis itis 12-23 ity of 00:00: [place] 00 [facility] Allergies, Adverse Reactions, Alerts Allergy Allergy Status Severity Reaction(s) Onset Inactive Treating Comm ents Source Name Type Date Date Clinician meperisandy DA Active U [facility] [place] [facility] meperidi DA Active U UNKNOWN [facility] [place] [facility] MEPERIDI DRUG Active Unknown-Cmnt Un pratik NE INGREDI 12-23 ity of 00:00: [place] 00 [facility] Meperidi Propensi Active Unknown - Uni vers ne ty to See comments 12-23 ity of adverse 00:00: [place] reaction 00 Medical s Branch Social History Social Habit Start Date Stop Date Quantity Comments Source Exposure to Not sure [facility] SARS-CoV-2 [facility] (event) Branch Alcohol intake 2019-04-24 2019-04-24 Current University of 00:00:00 00:00:00 non-drinker of [facility] alcohol [place] (finding) Tobacco use and 2015-12-24 2015-12-24 Never used Universit y of exposure 00:00:00 00:00:00 [facility] Sex [birth year] Universit y of 00:00:00 00:00:00 [facility] Smoking Status Start Date Stop Date Source Never smoker [facility] Medications Ordered Filled Start Stop Current Ordering Indication Dosage Frequency Signature Comments Components Source Medication Medication Date Date Medication? Clinician (SIG) Name Name MELOXICAM 2020-10 Yes TAKE 1 U nivers 15 mg 1-01 TABLET BY ity of tablet 00:00: MOUTH [place] 00 EVERY DAY Medical Branch VALSARTAN-H Yes [id number] TAKE 1 Univers YDROCHLOROT 9-13 TABLET BY ity of HIAZIDE 00:00: MOUTH [place] 320-12.5 mg 00 EVERY DAY Med ical per tablet Branch VALSARTAN-H Yes [id number] TAKE 1 Univers YDROCHLOROT 9-13 TABLET BY ity of HIAZIDE 00:00: MOUTH [place] 320-12.5 mg 00 EVERY DAY Med ical per tablet Branch VALSARTAN-H 0 Yes [id number] TAKE 1 Univers YDROCHLOROT 9-13 TABLET BY ity of HIAZIDE 00:00: MOUTH [place] 320-12.5 mg 00 EVERY DAY Med ical per tablet Branch CITALOPRAM 0 Yes [id number] TAKE 1 U nivers 20 mg 8-10 TABLET BY ity of tablet 00:00: MOUTH [place] 00 EVERY DAY Medical Branch CITALOPRAM 0 Yes [id number] TAKE 1 U nivers 20 mg 8-10 TABLET BY ity of tablet 00:00: MOUTH [place] 00 EVERY DAY Medical Branch CITALOPRAM 0 Yes [id number] TAKE 1 U nivers 20 mg 8-10 TABLET BY ity of tablet 00:00: MOUTH [place] 00 EVERY DAY Medical Branch CITALOPRAM 0 Yes [id number] TAKE 1 U nivers 20 mg 8-10 TABLET BY ity of tablet 00:00: MOUTH [place] 00 EVERY DAY Medical Branch VALSARTAN-H 0 Yes [id number] TAKE 1 Univers YDROCHLOROT 6-17 TABLET BY ity of HIAZIDE 00:00: MOUTH [place] 320-12.5 mg 00 EVERY DAY Med ical per tablet Branch VALSARTAN-H 0 Yes [id number] TAKE 1 Univers YDROCHLOROT 6-17 TABLET BY ity of HIAZIDE 00:00: MOUTH [place] 320-12.5 mg 00 EVERY DAY Med ical per tablet Branch VALSARTAN-H 0 Yes [id number] TAKE 1 Univers YDROCHLOROT 6-17 TABLET BY ity of HIAZIDE 00:00: MOUTH [place] 320-12.5 mg 00 EVERY DAY Med ical per tablet Branch VALSARTAN-H 0 Yes [id number] TAKE 1 Univers YDROCHLOROT 6-17 TABLET BY ity of HIAZIDE 00:00: MOUTH [place] 320-12.5 mg 00 EVERY DAY Med ical per tablet Branch VALSARTAN-H 0 2020- No [id number] TAKE 1 Univers YDROCHLOROT 6-17 09-13 TABLET BY it y of HIAZIDE 00:00: 00:00 MOUTH [place] 320-12.5 mg 00 :00 EVERY DAY Med ical per tablet [place] VALSARTAN-H 2020- No [id number] TAKE 1 Univers YDROCHLOROT 6-17 09-13 TABLET BY it y of HIAZIDE 00:00: 00:00 MOUTH [place] 320-12.5 mg 00 :00 EVERY DAY Med ical per tablet [place] VALSARTAN-H Yes [id number] TAKE 1 Univers YDROCHLOROT 3-26 TABLET BY ity of HIAZIDE 00:00: MOUTH [place] 320-12.5 mg 00 EVERY DAY Med ical per tablet [place] VALSARTAN-H 2020- No [id number] TAKE 1 Univers YDROCHLOROT 3-26 06-17 TABLET BY it y of HIAZIDE 00:00: 00:00 MOUTH [place] 320-12.5 mg 00 :00 EVERY DAY Med ical per tablet [place] budesonide- Yes 2{puff} Inhale 2 Univers formoteroL 2-03 Puffs 2 ity of 160-4.5 19:41: (two) [place] mcg/actuati 54 times Medical on inhaler daily. [place] budesonide Yes 2{puff} Inhale 2 Univers formoteroL 2-03 Puffs 2 ity of 160-4.5 19:41: (two) [place] mcg/actuati 54 times Medical on inhaler daily. [place] budesonide Yes 2{puff} Inhale 2 Univers formoteroL 2-03 Puffs 2 ity of 160-4.5 19:41: (two) [place] mcg/actuati 54 times Medical on inhaler daily. Branch budesonide- Yes 2{puff} Inhale 2 Univers formoteroL 2-03 Puffs 2 ity of 160-4.5 19:41: (two) [place] mcg/actuati 54 times Medical on inhaler daily. Branch budesonide- Yes 2{puff} Inhale 2 Univers formoteroL 2-03 Puffs 2 ity of 160-4.5 19:41: (two) [place] mcg/actuati 54 times Medical on inhaler daily. [place] budesonide- Yes 2{puff} Inhale 2 Univers formoteroL 2-03 Puffs 2 ity of 160-4.5 19:41: (two) [place] mcg/actuati 54 times Medical on inhaler daily. Branch budesonide- 2020-0 Yes 2{puff} Inhale 2 Univers formoteroL 2-03 Puffs 2 ity of 160-4.5 19:41: (two) [place] mcg/actuati 54 times Medical on inhaler daily. Branch budesonide- 2020-0 Yes 2{puff} Inhale 2 Univers formoteroL 2-03 Puffs 2 ity of 160-4.5 19:41: (two) [place] mcg/actuati 54 times Medical on inhaler daily. Branch budesonide- 2020-0 Yes 2{puff} Inhale 2 Univers formoteroL 2-03 Puffs 2 ity of 160-4.5 19:41: (two) [place] mcg/actuati 54 times Medical on inhaler daily. Branch GLUC/SABINA-M 0 Yes Take by Un pratik SM#1/C/JAY 2-03 mouth. ity of /ARIN/BOR 19:40: [place] (OSTEO 31 Medical BI-FLEX Branch TRIPLE STRENGTH ORAL) GLUC/SABINA-M 0 Yes Take by Un pratik SM#1/C/JAY 2-03 mouth. ity of /ARIN/BOR 19:40: [place] (OSTEO 31 Medical BI-FLEX Branch TRIPLE STRENGTH ORAL) GLUC/SABINA-M 2020-0 Yes Take by Un pratik SM#1/C/JAY 2-03 mouth. ity of /ARIN/BOR 19:40: [place] (OSTEO 31 Medical BI-FLEX Branch TRIPLE STRENGTH ORAL) GLUC/SABINA-M 0 Yes Take by Un pratik SM#1/C/JAY 2-03 mouth. ity of /ARIN/BOR 19:40: [place] (OSTEO 31 Medical BI-FLEX Branch TRIPLE STRENGTH ORAL) GLUC/SABINA-M 2020-0 Yes Take by Un pratik SM#1/C/JAY 2-03 mouth. ity of /ARIN/BOR 19:40: [place] (OSTEO 31 Medical BI-FLEX Branch TRIPLE STRENGTH ORAL) GLUC/SABINA-M 2020-0 Yes Take by Un pratik SM#1/C/JAY 2-03 mouth. ity of /ARIN/BOR 19:40: [place] (OSTEO 31 Medical BI-FLEX Branch TRIPLE STRENGTH ORAL) GLUC/SABINA-M 2020-0 Yes Take by Un pratik SM#1/C/JAY 2-03 mouth. ity of /ARIN/BOR 19:40: [place] (OSTEO 31 Medical BI-FLEX Branch TRIPLE STRENGTH ORAL) GLUC/SABINA-M 2020-0 Yes Take by Un pratik SM#1/C/JAY 2-03 mouth. ity of /ARIN/BOR 19:40: [place] (OSTEO 31 Medical BI-FLEX Branch TRIPLE STRENGTH ORAL) GLUC/SABINA-M 0 Yes Take by Un pratik SM#1/C/JAY 2-03 mouth. ity of /ARIN/BOR 19:40: [place] (OSTEO 31 Medical BI-FLEX Branch TRIPLE STRENGTH ORAL) budesonide- 2020-0 Yes 2{puff} Inhale 2 Univers formoteroL 2-03 Puffs 2 ity of 160-4.5 13:41: (two) [place] mcg/actuati 54 times Medical on inhaler daily. Branch budesonide- 0 Yes 2{puff} Inhale 2 Univers formoteroL 2-03 Puffs 2 ity of 160-4.5 13:41: (two) [place] mcg/actuati 54 times Medical on inhaler daily. Branch budesonide- 2020-0 Yes 2{puff} Inhale 2 Univers formoteroL 2-03 Puffs 2 ity of 160-4.5 13:41: (two) [place] mcg/actuati 54 times Medical on inhaler daily. Branch GLUC/SABINA-M 0 Yes Take by Un pratik SM#1/C/JAY 2-03 mouth. ity of /ARIN/BOR 13:40: [place] (OSTEO 31 Medical BI-FLEX Branch TRIPLE STRENGTH ORAL) GLUC/SABINA-M 0 Yes Take by Un pratik SM#1/C/JAY 2-03 mouth. ity of /ARIN/BOR 13:40: [place] (OSTEO 31 Medical BI-FLEX Branch TRIPLE STRENGTH ORAL) GLUC/SABINA-M 0 Yes Take by Un pratik SM#1/C/JAY 2-03 mouth. ity of /ARIN/BOR 13:40: [place] (OSTEO 31 Medical BI-FLEX Branch TRIPLE STRENGTH ORAL) VALSARTAN-H Yes [id number] TAKE 1 Univers YDROCHLOROT 1-04 TABLET BY ity of HIAZIDE 00:00: MOUTH [place] 320-12.5 mg 00 EVERY DAY Med ical per tablet Branch VALSARTAN-H Yes [id number] TAKE 1 Univers YDROCHLOROT 1-04 TABLET BY ity of HIAZIDE 00:00: MOUTH [place] 320-12.5 mg 00 EVERY DAY Med ical per tablet Branch VALSARTAN-H Yes [id number] TAKE 1 Univers YDROCHLOROT 1-04 TABLET BY ity of HIAZIDE 00:00: MOUTH [place] 320-12.5 mg 00 EVERY DAY Med ical per tablet Branch VALSARTAN-H Yes [id number] TAKE 1 Univers YDROCHLOROT 1-04 TABLET BY ity of HIAZIDE 00:00: MOUTH [place] 320-12.5 mg 00 EVERY DAY Med ical per tablet Branch VALSARTAN-H 2020- No [id number] TAKE 1 Univers YDROCHLOROT 1-04 03-26 TABLET BY it y of HIAZIDE 00:00: 00:00 MOUTH [place] 320-12.5 mg 00 :00 EVERY DAY Med ical per tablet Branch [facility] 2019-10 Yes [id number] 10mg TAKE 1 Univers N 10 mg 2-17 TABLET BY ity of tablet 00:00: MOUTH AT [address] 2019-10 Yes [id number] 10mg TAKE 1 Univers N 10 mg 2-17 TABLET BY ity of tablet 00:00: MOUTH AT [place] [facility] 2019-10 Yes [id number] 10mg TAKE 1 Univers N 10 mg 2-17 TABLET BY ity of tablet 00:00: MOUTH AT [place] [facility] 2019-10 Yes [id number] 10mg TAKE 1 Univers N 10 mg 2-17 TABLET BY ity of tablet 00:00: MOUTH AT [address] [facility] 2019-10 Yes [id number] 10mg TAKE 1 Univers N 10 mg 2-17 TABLET BY ity of tablet 00:00: MOUTH AT [address] [facility] 2019-10 Yes [id number] 10mg TAKE 1 Univers N 10 mg 2-17 TABLET BY ity of tablet 00:00: MOUTH AT [place] [facility] 2019-10 Yes [id number] 10mg TAKE 1 Univers N 10 mg 2-17 TABLET BY ity of tablet 00:00: MOUTH AT [place] [facility] 2019-10 Yes [id number] 10mg TAKE 1 Univers N 10 mg 2-17 TABLET BY ity of tablet 00:00: MOUTH AT [place] [facility] 2019-10 Yes [id number] 10mg TAKE 1 Univers N 10 mg 2-17 TABLET BY ity of tablet 00:00: MOUTH AT [place] [facility] 2019-10 Yes [id number] 10mg TAKE 1 Univers N 10 mg 2-17 TABLET BY ity of tablet 00:00: MOUTH AT [address] 2019-10 Yes [id number] 10mg TAKE 1 Univers N 10 mg 2-17 TABLET BY ity of tablet 00:00: MOUTH AT [address] 2019-10 Yes [id number] 10mg TAKE 1 Univers N 10 mg 2-17 TABLET BY ity of tablet 00:00: MOUTH AT [place] [facility] 2019-10 Yes [id number] 10mg TAKE 1 Univers N 10 mg 2-17 TABLET BY ity of tablet 00:00: MOUTH AT [address] VALSARTAN-H 2019-10 Yes [id number] TAKE 1 Univers YDROCHLOROT 0-08 TABLET BY ity of HIAZIDE 00:00: MOUTH [place] 320-12.5 mg 00 EVERY DAY Med ical per tablet Branch VALSARTAN-H 2019-10 Yes [id number] TAKE 1 Univers YDROCHLOROT 0-08 TABLET BY ity of HIAZIDE 00:00: MOUTH [place] 320-12.5 mg 00 EVERY DAY Med ical per tablet Branch VALSARTAN-H 2019-10 Yes [id number] TAKE 1 Univers YDROCHLOROT 0-08 TABLET BY ity of HIAZIDE 00:00: MOUTH [place] 320-12.5 mg 00 EVERY DAY Med ical per tablet Branch VALSARTAN-H 2019-10- No [id number] TAKE 1 Univers YDROCHLOROT 0-08 01-04 TABLET BY it y of HIAZIDE 00:00: 00:00 MOUTH [place] 320-12.5 mg 00 :00 EVERY DAY Med ical per tablet Branch MELOXICAM 2020-0 Yes [id number] TAKE 1 U nivers 15 mg 9-28 TABLET BY ity of tablet 00:00: MOUTH [place] 00 EVERY DAY Medical Branch MELOXICAM 2020-0 Yes [id number] TAKE 1 U nivers 15 mg 9-28 TABLET BY ity of tablet 00:00: MOUTH [place] 00 EVERY DAY Medical Branch MELOXICAM 2020-0 Yes [id number] TAKE 1 U nivers 15 mg 9-28 TABLET BY ity of tablet 00:00: MOUTH [place] 00 EVERY DAY Medical Branch MELOXICAM 2020-0 Yes [id number] TAKE 1 U nivers 15 mg 9-28 TABLET BY ity of tablet 00:00: MOUTH [place] 00 EVERY DAY Medical Branch MELOXICAM 2020-0 Yes [id number] TAKE 1 U nivers 15 mg 9-28 TABLET BY ity of tablet 00:00: MOUTH [place] 00 EVERY DAY Medical Branch MELOXICAM 2020-0 Yes [id number] TAKE 1 U nivers 15 mg 9-28 TABLET BY ity of tablet 00:00: MOUTH [place] 00 EVERY DAY Medical Branch MELOXICAM 2020-0 Yes [id number] TAKE 1 U nivers 15 mg 9-28 TABLET BY ity of tablet 00:00: MOUTH [place] 00 EVERY DAY Medical Branch MELOXICAM 2020-0 Yes [id number] TAKE 1 U nivers 15 mg 9-28 TABLET BY ity of tablet 00:00: MOUTH [place] 00 EVERY DAY Medical Branch MELOXICAM 2020-0 Yes [id number] TAKE 1 U nivers 15 mg 9-28 TABLET BY ity of tablet 00:00: MOUTH [place] 00 EVERY DAY Medical Branch MELOXICAM 2020-0 Yes [id number] TAKE 1 U nivers 15 mg 9-28 TABLET BY ity of tablet 00:00: MOUTH [place] 00 EVERY DAY Medical Branch MELOXICAM 2020-0 Yes [id number] TAKE 1 U nivers 15 mg 9-28 TABLET BY ity of tablet 00:00: MOUTH [place] 00 EVERY DAY Medical Branch MELOXICAM 2020-0 Yes [id number] TAKE 1 U nivers 15 mg 9-28 TABLET BY ity of tablet 00:00: MOUTH [place] 00 EVERY DAY Medical Branch MELOXICAM 2020-0 Yes [id number] TAKE 1 U nivers 15 mg 9-28 TABLET BY ity of tablet 00:00: MOUTH [place] 00 EVERY DAY Medical Branch MELOXICAM 2020-0 Yes TAKE 1 U nivers 15 mg 9-28 TABLET BY ity of tablet 00:00: MOUTH [place] 00 EVERY DAY Medical Branch MELOXICAM 2020-0 Yes TAKE 1 U nivers 15 mg 9-28 TABLET BY ity of tablet 00:00: MOUTH [place] 00 EVERY DAY Medical Branch MELOXICAM 2020-0 Yes TAKE 1 U nivers 15 mg 9-28 TABLET BY ity of tablet 00:00: MOUTH [place] 00 EVERY DAY Medical Branch MELOXICAM 2020-0 Yes TAKE 1 U nivers 15 mg 9-28 TABLET BY ity of tablet 00:00: MOUTH [place] 00 EVERY DAY Medical Branch MELOXICAM 2019-0 2020- No TAKE 1 Univers 15 mg 9-28 11-01 TABLET BY ity of tablet 00:00: 00:00 MOUTH [place] 00 :00 EVERY DAY Medical Branch VALSARTAN-H 2019-0 Yes [id number] TAKE 1 Univers YDROCHLOROT 7-10 TABLET BY ity of HIAZIDE 00:00: MOUTH [place] 320-12.5 mg 00 EVERY DAY Med ical per tablet Branch VALSARTAN-H 2019-0 Yes [id number] TAKE 1 Univers YDROCHLOROT 7-10 TABLET BY ity of HIAZIDE 00:00: MOUTH [place] 320-12.5 mg 00 EVERY DAY Med ical per tablet Branch VALSARTAN-H 2019-0 Yes [id number] TAKE 1 Univers YDROCHLOROT 7-10 TABLET BY ity of HIAZIDE 00:00: MOUTH [place] 320-12.5 mg 00 EVERY DAY Med ical per tablet Branch VALSARTAN-H 2019-0 Yes [id number] TAKE 1 Univers YDROCHLOROT 7-10 TABLET BY ity of HIAZIDE 00:00: MOUTH [place] 320-12.5 mg 00 EVERY DAY Med ical per tablet Branch VALSARTAN-H 2019-0 Yes [id number] TAKE 1 Univers YDROCHLOROT 7-10 TABLET BY ity of HIAZIDE 00:00: MOUTH [place] 320-12.5 mg 00 EVERY DAY Med ical per tablet Branch VALSARTAN-H 2019-0 2020- No [id number] TAKE 1 Univers YDROCHLOROT 7-10 10-08 TABLET BY it y of HIAZIDE 00:00: 00:00 MOUTH [place] 320-12.5 mg 00 :00 EVERY DAY Med ical per tablet [place] VALSARTAN-H 2019-0 2020- No [id number] TAKE 1 Univers YDROCHLOROT 7-10 10-08 TABLET BY it y of HIAZIDE 00:00: 00:00 MOUTH [place] 320-12.5 mg 00 :00 EVERY DAY Med ical per tablet [place] budesonide- 2019-0 Yes 2{puff} Inhale 2 Univers formoteroL 5-26 Puffs 2 ity of 160-4.5 18:14: (two) [place] mcg/actuati 58 times Medical on inhaler daily. [place] budesonide- Yes 2{puff} Inhale 2 Univers formoteroL 5-26 Puffs 2 ity of 160-4.5 18:14: (two) [place] mcg/actuati 58 times Medical on inhaler daily. [place] budesonide- Yes 2{puff} Inhale 2 Univers formoteroL 5-26 Puffs 2 ity of 160-4.5 18:14: (two) [place] mcg/actuati 58 times Medical on inhaler daily. [place] budesonide- Yes 2{puff} Inhale 2 Univers formoteroL 5-26 Puffs 2 ity of 160-4.5 18:14: (two) [place] mcg/actuati 58 times Medical on inhaler daily. [place] budesonide- Yes 2{puff} Inhale 2 Univers formoteroL 5-26 Puffs 2 ity of 160-4.5 18:14: (two) [place] mcg/actuati 58 times Medical on inhaler daily. [place] budesonide- 2019- Yes 2{puff} Inhale 2 Univers formoteroL 5-26 Puffs 2 ity of 160-4.5 18:14: (two) [place] mcg/actuati 58 times Medical on inhaler daily. [place] budesonide- 2019- Yes 2{puff} Inhale 2 Univers formoteroL 5-26 Puffs 2 ity of 160-4.5 18:14: (two) [place] mcg/actuati 58 times Medical on inhaler daily. [place] budesonide- 2019- Yes 2{puff} Inhale 2 Univers formoteroL 5-26 Puffs 2 ity of 160-4.5 18:14: (two) [place] mcg/actuati 58 times Medical on inhaler daily. Branch budesonide- 2020-0 Yes 2{puff} Inhale 2 Univers formoteroL 5-26 Puffs 2 ity of 160-4.5 18:14: (two) [place] mcg/actuati 58 times Medical on inhaler daily. Branch budesonide- 2020-0 Yes 2{puff} Inhale 2 Univers formoteroL 5-26 Puffs 2 ity of 160-4.5 18:14: (two) [place] mcg/actuati 58 times Medical on inhaler daily. Branch citalopram 2020-0 Yes [id number] 20mg Take 1 U nivers 20 mg 5-26 tablet by ity of tablet 00:00: mouth [place] 00 daily. Medical Branch citalopram 2020-0 Yes [id number] 20mg Take 1 U nivers 20 mg 5-26 tablet by ity of tablet 00:00: mouth [place] 00 daily. Medical Branch citalopram 2020-0 Yes [id number] 20mg Take 1 U nivers 20 mg 5-26 tablet by ity of tablet 00:00: mouth [place] 00 daily. Medical Branch citalopram 2020-0 Yes [id number] 20mg Take 1 U nivers 20 mg 5-26 tablet by ity of tablet 00:00: mouth [place] 00 daily. Medical Branch citalopram 2020-0 Yes [id number] 20mg Take 1 U nivers 20 mg 5-26 tablet by ity of tablet 00:00: mouth [place] 00 daily. Medical Branch citalopram 2020-0 Yes [id number] 20mg Take 1 U nivers 20 mg 5-26 tablet by ity of tablet 00:00: mouth [place] 00 daily. Medical Branch citalopram 2020-0 Yes [id number] 20mg Take 1 U nivers 20 mg 5-26 tablet by ity of tablet 00:00: mouth [place] 00 daily. Medical Branch citalopram 2020-0 Yes [id number] 20mg Take 1 U nivers 20 mg 5-26 tablet by ity of tablet 00:00: mouth [place] 00 daily. Medical Branch citalopram 2020-0 Yes [id number] 20mg Take 1 U nivers 20 mg 5-26 tablet by ity of tablet 00:00: mouth [place] 00 daily. Medical Branch citalopram 2020-0 Yes [id number] 20mg Take 1 U nivers 20 mg 5-26 tablet by ity of tablet 00:00: mouth [place] 00 daily. Medical Branch citalopram 2019-0 Yes [id number] 20mg Take 1 U nivers 20 mg 5-26 tablet by ity of tablet 00:00: mouth [place] 00 daily. [facility] Branch citalopram 2019-0 Yes [id number] 20mg Take 1 U nivers 20 mg 5-26 tablet by ity of tablet 00:00: mouth [place] 00 daily. [facility] Branch citalopram 2019-0 Yes [id number] 20mg Take 1 U nivers 20 mg 5-26 tablet by ity of tablet 00:00: mouth [place] 00 daily. [facility] citalopram 2019-0 Yes [id number] 20mg Take 1 U nivers 20 mg 5-26 tablet by ity of tablet 00:00: mouth [place] 00 daily. [facility] Branch citalopram 2019-0 Yes [id number] 20mg Take 1 U nivers 20 mg 5-26 tablet by ity of tablet 00:00: mouth [place] 00 daily. [facility] citalopram 2019-0 Yes [id number] 20mg Take 1 U nivers 20 mg 5-26 tablet by ity of tablet 00:00: mouth [place] 00 daily. [facility] Branch citalopram 2019-0 Yes [id number] 20mg Take 1 U nivers 20 mg 5-26 tablet by ity of tablet 00:00: mouth [place] 00 daily. [facility] Branch citalopram 2019-0 Yes [id number] 20mg Take 1 U nivers 20 mg 5-26 tablet by ity of tablet 00:00: mouth [place] 00 daily. [facility] citalopram 2019-0 2020- No [id number] 20mg Take 1 Univers 20 mg 5-26 08-10 tablet by ity of tablet 00:00: 00:00 mouth [place] 00 :00 daily. [facility] methylPREDN 2018-10 2020- No [id number] 84mg Take 21 Univers ISolone -19 05-26 tablets by ity o f (MEDROL, 00:00: 00:00 mouth [place] DEVORAH,) 4 mg 00 :00 SEE-INSTRU Med ical tablets CTIONS. Branch follow package directions azithromyci 2018-10 2020- No [id number] 500mg Take 1 Univers n 500 mg - 05-26 tablet by ity o f tablet 00:00: 00:00 mouth [place] 00 :00 daily. Medical [place] [facility] Yes [id number] 10mg TAKE 1 Univers N 10 mg 7-24 TABLET BY ity of tablet 00:00: MOUTH AT [address] [facility] Yes [id number] 10mg TAKE 1 Univers N 10 mg 7-24 TABLET BY ity of tablet 00:00: MOUTH AT [place] [facility] Yes [id number] 10mg TAKE 1 Univers N 10 mg 7-24 TABLET BY ity of tablet 00:00: MOUTH AT [address] Yes [id number] 10mg TAKE 1 Univers N 10 mg 7-24 TABLET BY ity of tablet 00:00: MOUTH AT [address] Yes [id number] 10mg TAKE 1 Univers N 10 mg 7-24 TABLET BY ity of tablet 00:00: MOUTH AT [address] [facility] Yes [id number] 10mg TAKE 1 Univers N 10 mg 7-24 TABLET BY ity of tablet 00:00: MOUTH AT [address] [facility] Yes [id number] 10mg TAKE 1 Univers N 10 mg 7-24 TABLET BY ity of tablet 00:00: MOUTH AT [address] Yes [id number] 10mg TAKE 1 Univers N 10 mg 7-24 TABLET BY ity of tablet 00:00: MOUTH AT [address] [facility] 2020- No [id number] 10mg TAKE 1 Univers N 10 mg 7-24 12-17 TABLET BY ity of tablet 00:00: 00:00 MOUTH AT [place] 00 :00 [facility] 2020- No [id number] 10mg TAKE 1 Univers N 10 mg 7-24 12-17 TABLET BY ity of tablet 00:00: 00:00 MOUTH AT [place] 00 :00 [facility] MELOXICAM 0 Yes TAKE 1 U nivers 15 mg 7-10 TABLET BY ity of tablet 00:00: MOUTH [place] [id number] EVERY DAY [facility] MELOXICAM 0 Yes TAKE 1 U nivers 15 mg 7-10 TABLET BY ity of tablet 00:00: MOUTH [place] 00 EVERY DAY Medical Branch MELOXICAM 2019-0 Yes TAKE 1 U nivers 15 mg 7-10 TABLET BY ity of tablet 00:00: MOUTH [place] 00 EVERY DAY Medical Branch MELOXICAM 2019-0 2020- No TAKE 1 Univers 15 mg 7-10 -28 TABLET BY ity of tablet 00:00: 00:00 MOUTH [place] 00 :00 EVERY DAY Medical Branch MELOXICAM 2019-0 2020- No TAKE 1 Univers 15 mg 7-10 -28 TABLET BY ity of tablet 00:00: 00:00 MOUTH [place] 00 :00 EVERY DAY Medical Branch AMLODIPINE 2019-0 Yes [id number] TAKE 1 U nivers 5 mg tablet 7-05 TABLET BY ity of 00:00: MOUTH [place] 00 EVERY DAY Medical Branch AMLODIPINE 2019-0 Yes [id number] TAKE 1 U nivers 5 mg tablet 7-05 TABLET BY ity of 00:00: MOUTH [place] 00 EVERY DAY Medical Branch AMLODIPINE 2019-0 Yes [id number] TAKE 1 U nivers 5 mg tablet 7-05 TABLET BY ity of 00:00: MOUTH [place] 00 EVERY DAY Medical Branch AMLODIPINE 2019-0 Yes [id number] TAKE 1 U nivers 5 mg tablet 7-05 TABLET BY ity of 00:00: MOUTH [place] 00 EVERY DAY Medical Branch AMLODIPINE 2019-0 Yes [id number] TAKE 1 U nivers 5 mg tablet 7-05 TABLET BY ity of 00:00: MOUTH [place] 00 EVERY DAY Medical Branch AMLODIPINE 2019-0 Yes [id number] TAKE 1 U nivers 5 mg tablet 7-05 TABLET BY ity of 00:00: MOUTH [place] 00 EVERY DAY Medical Branch AMLODIPINE 2019-0 Yes [id number] TAKE 1 U nivers 5 mg tablet 7-05 TABLET BY ity of 00:00: MOUTH [place] 00 EVERY DAY Medical Branch AMLODIPINE 2019-0 Yes [id number] TAKE 1 U nivers 5 mg tablet 7-05 TABLET BY ity of 00:00: MOUTH [place] 00 EVERY DAY Medical Branch AMLODIPINE 2019-0 Yes [id number] TAKE 1 U nivers 5 mg tablet 7-05 TABLET BY ity of 00:00: MOUTH [place] 00 EVERY DAY Medical Branch AMLODIPINE 2019-0 Yes [id number] TAKE 1 U nivers 5 mg tablet 7-05 TABLET BY ity of 00:00: MOUTH [place] 00 EVERY DAY [facility] AMLODIPINE 2019-0 Yes [id number] TAKE 1 U nivers 5 mg tablet 7-05 TABLET BY [facility] 00:00: MOUTH [place] 00 EVERY DAY [facility] AMLODIPINE 2019-0 Yes [id number] TAKE 1 [facility] nivers 5 mg tablet 7-05 TABLET BY [facility] 00:00: MOUTH [place] 00 EVERY DAY [facility] AMLODIPINE 2018-0 Yes [id number] TAKE 1 U nivers 5 mg tablet 7-05 TABLET BY [facility] 00:00: MOUTH [place] 00 EVERY DAY [facility] AMLODIPINE 2018-0 Yes [id number] TAKE 1 U nivers 5 mg tablet 7-05 TABLET BY [facility] 00:00: MOUTH [place] 00 EVERY DAY Medical Branch AMLODIPINE 2018-0 Yes [id number] TAKE 1 U nivers 5 mg tablet 7-05 TABLET BY ity of 00:00: MOUTH [place] 00 EVERY DAY Medical Branch AMLODIPINE 2018-0 Yes [id number] TAKE 1 U nivers 5 mg tablet 7-05 TABLET BY ity of 00:00: MOUTH [place] 00 EVERY DAY Medical Branch AMLODIPINE 2018-0 Yes [id number] TAKE 1 U nivers 5 mg tablet 7-05 TABLET BY ity of 00:00: MOUTH [place] 00 EVERY DAY Medical Branch AMLODIPINE 2018-0 Yes [id number] TAKE 1 U nivers 5 mg tablet 7-05 TABLET BY ity of 00:00: MOUTH [place] 00 EVERY DAY Medical Branch AMLODIPINE 2018-0 Yes [id number] TAKE 1 U nivers 5 mg tablet 7-05 TABLET BY ity of 00:00: MOUTH [place] 00 EVERY DAY Medical Branch VALSARTAN-H 2018-0 Yes [id number] TAKE 1 Univers YDROCHLOROT 7-05 TABLET BY ity of HIAZIDE 00:00: MOUTH [place] 320-12.5 mg 00 EVERY DAY Med ical per tablet Branch AMLODIPINE 0 Yes [id number] TAKE 1 U nivers 5 mg tablet 7-05 TABLET BY ity of 00:00: MOUTH [place] 00 EVERY DAY Medical Branch AMLODIPINE 2019-0 Yes [id number] TAKE 1 U nivers 5 mg tablet 7-05 TABLET BY ity of 00:00: MOUTH [place] 00 EVERY DAY Medical Branch AMLODIPINE 2018-0 Yes [id number] TAKE 1 U nivers 5 mg tablet 7-05 TABLET BY ity of 00:00: MOUTH [place] 00 EVERY DAY Medical Branch VALSARTAN-H 2018-0 2020- No [id number] TAKE 1 Univers YDROCHLOROT 05-04 TABLET BY it y of HIAZIDE 00:00: 00:00 MOUTH [place] 320-12.5 mg 00 :00 EVERY DAY Med ical per tablet Branch CITALOPRAM 2020- No [id number] TAKE 1 Univers 20 mg 04-06 TABLET BY ity of tablet 00:00: 00:00 MOUTH [place] 00 :00 EVERY DAY Medical Branch GLUC/SABINA-M Yes Take by Un pratik SM#1/C/JAY 5-08 mouth. ity of /ARIN/BOR 21:02: [place] (OSTEO 15 Medical BI-FLEX Branch TRIPLE STRENGTH ORAL) GLUC/SABINA-M Yes Take by Un pratik SM#1/C/JAY 5-08 mouth. ity of /ARIN/BOR 21:02: [place] (OSTEO 15 Medical BI-FLEX Branch TRIPLE STRENGTH ORAL) GLUC/SABINA-M Yes Take by Un pratik SM#1/C/JAY 5-08 mouth. ity of /ARIN/BOR 21:02: [place] (OSTEO 15 Medical BI-FLEX Branch TRIPLE STRENGTH ORAL) GLUC/SABINA-M Yes Take by Un pratik SM#1/C/JAY 5-08 mouth. ity of /ARIN/BOR 21:02: [place] (OSTEO 15 Medical BI-FLEX Branch TRIPLE STRENGTH ORAL) GLUC/SABINA-M Yes Take by Un pratik SM#1/C/JAY 5-08 mouth. ity of /ARIN/BOR 21:02: [place] (OSTEO 15 Medical BI-FLEX Branch TRIPLE STRENGTH ORAL) GLUC/SABINA-M Yes Take by Un pratik SM#1/C/JAY 5-08 mouth. ity of /ARIN/BOR 21:02: [place] (OSTEO 15 Medical BI-FLEX Branch TRIPLE STRENGTH ORAL) GLUC/SABINA-M Yes Take by Un pratik SM#1/C/JAY 5-08 mouth. ity of /ARIN/BOR 21:02: [place] (OSTEO 15 Medical BI-FLEX Branch TRIPLE STRENGTH ORAL) GLUC/SABINA-M Yes Take by Un pratik SM#1/C/JAY 5-08 mouth. ity of /ARIN/BOR 21:02: [place] (OSTEO 15 Medical BI-FLEX Branch TRIPLE STRENGTH ORAL) GLUC/SABINA-M 2019-0 Yes Take by Un pratik SM#1/C/JAY 5-08 mouth. ity of /ARIN/BOR 21:02: [place] (OSTEO 15 Medical BI-FLEX Branch TRIPLE STRENGTH ORAL) GLUC/SABINA-M 2019-0 Yes Take by Un pratik SM#1/C/JAY 5-08 mouth. ity of /ARIN/BOR 21:02: [place] (OSTEO 15 Medical BI-FLEX Branch TRIPLE STRENGTH ORAL) fluticasone 0 Yes Univer s (FLONASE 3-18 ity of ALLERGY 00:00: [place] RELIEF) 50 00 Medical mcg/actuati Branch on nasal spray fluticasone 2019-0 Yes Univer s (FLONASE 3-18 ity of ALLERGY 00:00: [place] RELIEF) 50 00 Medical mcg/actuati Branch on nasal spray fluticasone 0 Yes Univer s (FLONASE 3-18 ity of ALLERGY 00:00: [place] RELIEF) 50 00 Medical mcg/actuati Branch on nasal spray fluticasone 2019-0 Yes Univer s (FLONASE 3-18 ity of ALLERGY 00:00: [place] RELIEF) 50 00 Medical mcg/actuati Branch on nasal spray fluticasone 2019-0 Yes Univer s (FLONASE 3-18 ity of ALLERGY 00:00: [place] RELIEF) 50 00 Medical mcg/actuati Branch on nasal spray fluticasone 2019-0 Yes Univer s (FLONASE 3-18 ity of ALLERGY 00:00: [place] RELIEF) 50 00 Medical mcg/actuati Branch on nasal spray fluticasone 2019-0 Yes Univer s (FLONASE 3-18 ity of ALLERGY 00:00: [place] RELIEF) 50 00 Medical mcg/actuati Branch on nasal spray fluticasone 2019-0 Yes Univer s (FLONASE 3-18 ity of ALLERGY 00:00: [place] RELIEF) 50 00 Medical mcg/actuati Branch on nasal spray fluticasone 2019-0 Yes Univer s (FLONASE 3-18 ity of ALLERGY 00:00: [place] RELIEF) 50 00 Medical mcg/actuati Branch on nasal spray fluticasone 2019-0 Yes Univer s (FLONASE 3-18 ity of ALLERGY 00:00: [place] RELIEF) 50 00 Medical mcg/actuati Branch on nasal spray fluticasone 2020- No Unive rs (FLONASE 3-18 02-03 ity of ALLERGY 00:00: 00:00 [place] RELIEF) 50 00 :00 Medical mcg/actuati Branch on nasal spray fluticasone 2020- No Unive rs (FLONASE 318 02-03 ity of ALLERGY 00:00: 00:00 [place] RELIEF) 50 00 :00 Medical mcg/actuati Branch on nasal spray fluticasone 2020- No Unive rs (FLONASE 3-18 - ity of ALLERGY 00:00: 00:00 [place] RELIEF) 50 00 :00 Medical mcg/actuati Branch on nasal spray mometasone 2019- No Univer s (ASMANEX 01-15 ity of HFA) 200 00:00: 00:00 [place] mcg/actuati 00 :00 Medical on HFAA Branch tiotropium- 2019- No Unive rs olodaterol 01-15 ity of (STIOLTO 00:00: 00:00 [place] RESPIMAT) 00 :00 Medical 2.5-2.5 Branch mcg/actuati on Mist voriconazol 2019- No Unive rs e 200 mg 01-15 ity of tablet 00:00: 00:00 [place] 00 :00 Medical Branch montelukast 2019- No 10mg Take 1 Uni vers 10 mg 11-16 tablet by ity of tablet 00:00: 00:00 mouth [place] 00 :00 daily. Medical Branch albuterol 2017-10 Yes 2{puff} Inhale 2 U nivers 90 2-13 Puffs ity of mcg/actuati 00:00: every 6 Gen as on inhaler 00 (six) Medical hours as Branch needed for Wheezing or Shortness of Breath. albuterol 2017-10 Yes 2{puff} Inhale 2 U nivers 90 2-13 Puffs ity of mcg/actuati 00:00: every 6 Gen as on inhaler 00 (six) Medical hours as Branch needed for Wheezing or Shortness of Breath. albuterol 2017-10 Yes 2{puff} Inhale 2 U nivers 90 2-13 Puffs ity of mcg/actuati 00:00: every 6 Gen as on inhaler 00 (six) Medical hours as Branch needed for Wheezing or Shortness of Breath. albuterol 2017-10 Yes 2{puff} Inhale 2 U nivers 90 2-13 Puffs ity of mcg/actuati 00:00: every 6 Gen as on inhaler 00 (six) Medical hours as Branch needed for Wheezing or Shortness of Breath. albuterol 2017-10 Yes 2{puff} Inhale 2 U nivers 90 2-13 Puffs ity of mcg/actuati 00:00: every 6 Gen as on inhaler 00 (six) Medical hours as Branch needed for Wheezing or Shortness of Breath. albuterol 2017-10 Yes 2{puff} Inhale 2 U nivers 90 2-13 Puffs ity of mcg/actuati 00:00: every 6 Gen as on inhaler 00 (six) Medical hours as Branch needed for Wheezing or Shortness of Breath. albuterol 2017-10 Yes 2{puff} Inhale 2 U nivers 90 2-13 Puffs ity of mcg/actuati 00:00: every 6 Gen as on inhaler 00 (six) Medical hours as Branch needed for Wheezing or Shortness of Breath. albuterol 2017-10 Yes 2{puff} Inhale 2 U nivers 90 2-13 Puffs ity of mcg/actuati 00:00: every 6 Gen as on inhaler 00 (six) Medical hours as Branch needed for Wheezing or Shortness of Breath. albuterol 2017-10 Yes 2{puff} Inhale 2 U nivers 90 2-13 Puffs ity of mcg/actuati 00:00: every 6 Gen as on inhaler 00 (six) Medical hours as Branch needed for Wheezing or Shortness of Breath. albuterol 2017-10 Yes 2{puff} Inhale 2 U nivers 90 2-13 Puffs ity of mcg/actuati 00:00: every 6 Gen as on inhaler 00 (six) Medical hours as Branch needed for Wheezing or Shortness of Breath. albuterol 2017-10 Yes 2{puff} Inhale 2 U nivers 90 2-13 Puffs ity of mcg/actuati 00:00: every 6 Gen as on inhaler 00 (six) Medical hours as Branch needed for Wheezing or Shortness of Breath. albuterol 2017-10 Yes 2{puff} Inhale 2 U nivers 90 2-13 Puffs ity of mcg/actuati 00:00: every 6 Gen as on inhaler 00 (six) Medical hours as Branch needed for Wheezing or Shortness of Breath. albuterol 2017-10 Yes 2{puff} Inhale 2 U nivers 90 2-13 Puffs ity of mcg/actuati 00:00: every 6 Gen as on inhaler 00 (six) Medical hours as Branch needed for Wheezing or Shortness of Breath. albuterol 2017-10 Yes 2{puff} Inhale 2 U nivers 90 2-13 Puffs ity of mcg/actuati 00:00: every 6 Gen as on inhaler 00 (six) Medical hours as Branch needed for Wheezing or Shortness of Breath. albuterol 2017-10 Yes 2{puff} Inhale 2 U nivers 90 2-13 Puffs ity of mcg/actuati 00:00: every 6 Gen as on inhaler 00 (six) Medical hours as Branch needed for Wheezing or Shortness of Breath. albuterol 2017-10 Yes 2{puff} Inhale 2 U nivers 90 2-13 Puffs ity of mcg/actuati 00:00: every 6 Gen as on inhaler 00 (six) Medical hours as Branch needed for Wheezing or Shortness of Breath. albuterol 2017-10 Yes 2{puff} Inhale 2 U nivers 90 2-13 Puffs ity of mcg/actuati 00:00: every 6 Gen as on inhaler 00 (six) Medical hours as Branch needed for Wheezing or Shortness of Breath. albuterol 2017-10 Yes 2{puff} Inhale 2 U nivers 90 2-13 Puffs ity of mcg/actuati 00:00: every 6 Gen as on inhaler 00 (six) Medical hours as Branch needed for Wheezing or Shortness of Breath. albuterol 2017-10 Yes 2{puff} Inhale 2 U nivers 90 2-13 Puffs ity of mcg/actuati 00:00: every 6 Gen as on inhaler 00 (six) Medical hours as Branch needed for Wheezing or Shortness of Breath. albuterol 2017-10 Yes 2{puff} Inhale 2 U nivers 90 2-13 Puffs ity of mcg/actuati 00:00: every 6 Gen as on inhaler 00 (six) Medical hours as Branch needed for Wheezing or Shortness of Breath. albuterol 2017-10 Yes 2{puff} Inhale 2 U nivers 90 2-13 Puffs ity of mcg/actuati 00:00: every 6 Gen as on inhaler 00 (six) Medical hours as Branch needed for Wheezing or Shortness of Breath. albuterol 2017-10 Yes 2{puff} Inhale 2 U nivers 90 2-13 Puffs ity of mcg/actuati 00:00: every 6 Gen as on inhaler 00 (six) Medical hours as Branch needed for Wheezing or Shortness of Breath. Immunizations Ordered Filled Immunization Date Status Comments [facility] Immunization Name Name SARS-COV-2 COVID-19 2020-12-05 Completed Unive rsity of MODERNA VACCINE 00:00:00 [facility] Branch SARS-COV-2 COVID-19 2020-12-05 Completed Unive rsity of MODERNA VACCINE 00:00:00 [facility] Branch SARS-COV-2 COVID-19 2020-12-05 Completed Unive rsity of MODERNA VACCINE 00:00:00 [facility] Branch SARS-COV-2 COVID-19 2020-12-05 Completed Unive rsity of MODERNA VACCINE 00:00:00 [facility] Branch SARS-COV-2 COVID-19 2020-12-05 Completed Unive rsity of MODERNA VACCINE 00:00:00 [facility] Branch SARS-COV-2 COVID-19 2020-12-05 Completed Unive rsity of MODERNA VACCINE 00:00:00 [facility] Branch SARS-COV-2 COVID-19 2020-12-05 Completed Unive rsity of MODERNA VACCINE 00:00:00 [facility] Branch SARS-COV-2 COVID-19 2020-10-27 Completed Unive rsity of MODERNA VACCINE 00:00:00 [facility] Branch SARS-COV-2 COVID-19 2020-10-27 Completed Unive rsity of MODERNA VACCINE 00:00:00 [facility] Branch SARS-COV-2 COVID-19 2020-10-27 Completed Unive rsity of MODERNA VACCINE 00:00:00 [facility] SARS-COV-2 COVID-19 2020-10-27 Completed Unive rsity of MODERNA VACCINE 00:00:00 [facility] SARS-COV-2 COVID-19 2020-10-27 Completed Unive rsity of MODERNA VACCINE 00:00:00 [facility] SARS-COV-2 COVID-19 2020-10-27 Completed Unive rsity of MODERNA VACCINE 00:00:00 [facility] SARS-COV-2 COVID-19 2020-10-27 Completed Unive rsity of MODERNA VACCINE 00:00:00 [facility] Zoster Vaccine 2020-03-19 Completed University of Recombinant 00:00:00 [facility] Zoster Vaccine 2020-03-19 Completed University of Recombinant 00:00:00 [facility] Zoster Vaccine 2020-03-19 Completed University of Recombinant 00:00:00 [facility] Zoster Vaccine 2020-03-19 Completed University of Recombinant 00:00:00 [facility] Zoster Vaccine 2020-03-19 Completed University of Recombinant 00:00:00 [facility] Zoster Vaccine 2020-03-19 Completed University of Recombinant 00:00:00 [facility] Zoster Vaccine 2020-03-19 Completed University of Recombinant 00:00:00 [facility] Zoster Vaccine 2020-03-19 Completed University of Recombinant 00:00:00 [facility] Zoster Vaccine 2020-03-19 Completed University of Recombinant 00:00:00 [facility] Zoster Vaccine 2020-03-19 Completed University of Recombinant 00:00:00 [facility] Zoster Vaccine 2020-03-19 Completed University of Recombinant 00:00:00 [facility] Zoster Vaccine 2020-03-19 Completed University of Recombinant 00:00:00 [facility] Zoster Vaccine 2020-03-19 Completed University of Recombinant 00:00:00 [facility] Zoster Vaccine 2020-03-19 Completed University of Recombinant 00:00:00 [facility] Zoster Vaccine 2020-03-19 Completed University of Recombinant 00:00:00 [facility] Zoster Vaccine 2020-03-19 Completed University of Recombinant 00:00:00 [facility] Zoster Vaccine 2020-03-19 Completed University of Recombinant 00:00:00 [facility] Zoster Vaccine 2020-03-19 Completed University of Recombinant 00:00:00 [facility] Zoster Vaccine 2020-03-19 Completed University of Recombinant 00:00:00 [place] [facility] Zoster Vaccine 2020-03-19 Completed University of Recombinant 00:00:00 [facility] Zoster Vaccine 2020-03-19 Completed University of Recombinant 00:00:00 [facility] Zoster Vaccine 2020-03-19 Completed University of Recombinant 00:00:00 [facility] Pneumococcal 13 2019-10-04 Completed Universit y of Conjugate, PCV13 00:00:00 [place] Me dical (Prevnar 13) Branch Pneumococcal 13 2019-10-04 Completed Universit y of Conjugate, PCV13 00:00:00 [place] Me [facility]ical (Prevnar 13) Branch Pneumococcal 13 2019-10-04 Completed Universit y of Conjugate, PCV13 00:00:00 [place] Me dical (Prevnar 13) Branch Pneumococcal 13 2019-10-04 Completed Universit y of Conjugate, PCV13 00:00:00 [place] Me dical (Prevnar 13) Branch Pneumococcal 13 2019-10-04 Completed Universit y of Conjugate, PCV13 00:00:00 [place] Me dical (Prevnar 13) Branch Pneumococcal 13 2019-10-04 Completed Universit y of Conjugate, PCV13 00:00:00 [place] Me dical (Prevnar 13) Branch Pneumococcal 13 2019-10-04 Completed Universit y of Conjugate, PCV13 00:00:00 [place] Me dical (Prevnar 13) Branch Pneumococcal 13 2019-10-04 Completed Universit y of Conjugate, PCV13 00:00:00 [place] Me dical (Prevnar 13) Branch Pneumococcal 13 2019-10-04 Completed Universit y of Conjugate, PCV13 00:00:00 [place] Me dical (Prevnar 13) Branch Pneumococcal 13 2019-10-04 Completed Universit y of Conjugate, PCV13 00:00:00 [place] Me dical (Prevnar 13) Branch Pneumococcal 13 2019-10-04 Completed Universit y of Conjugate, PCV13 00:00:00 [place] Me dical (Prevnar 13) Branch Pneumococcal 13 2019-10-04 Completed Universit y of Conjugate, PCV13 00:00:00 [place] Me dical (Prevnar 13) Branch Pneumococcal 13 2019-10-04 Completed Universit y of Conjugate, PCV13 00:00:00 [place] Me dical (Prevnar 13) Branch Pneumococcal 13 2019-10-04 Completed Universit y of Conjugate, PCV13 00:00:00 [place] Me dical (Prevnar 13) Branch Pneumococcal 13 2019-10-04 Completed Universit y of Conjugate, PCV13 00:00:00 [place] Me dical (Prevnar 13) Branch Pneumococcal 13 2019-10-04 Completed Universit y of Conjugate, PCV13 00:00:00 [place] Me dical (Prevnar 13) Branch Pneumococcal 13 2019-10-04 Completed Universit y of Conjugate, PCV13 00:00:00 [place] Me dical (Prevnar 13) Branch Pneumococcal 13 2019-10-04 Completed Universit y of Conjugate, PCV13 00:00:00 [place] Me dical (Prevnar 13) Branch Pneumococcal 13 2019-10-04 Completed Universit y of Conjugate, PCV13 00:00:00 [place] Me dical (Prevnar 13) Branch Pneumococcal 13 2019-10-04 Completed Universit y of Conjugate, PCV13 00:00:00 [place] Me dical (Prevnar 13) Branch Pneumococcal 13 2019-10-04 Completed Universit y of Conjugate, PCV13 00:00:00 [facility] dical (Prevnar 13) Branch Pneumococcal 13 2019-10-04 Completed Universit y of Conjugate, PCV13 00:00:00 [facility] dical (Prevnar 13) Branch Vital Signs Vital Name Observation Time Observation Value Comments Source Systolic blood 2021-04-16 15:25:00 154 mm[Hg] Univer sity [facility] Diastolic blood 2021-04-16 15:25:00 82 [facility]Hg[facility] 2021-04-16 15:25:00 71 /min [facility] Body height 2021-04-16 15:25:00 157.5 cm [facility] Body weight 2021-04-16 15:25:00 73.029 kg [facility] BMI 2021-04-16 15:25:00 29.45 kg/m2 [facility] Systolic blood 2020-12-03 19:41:00 157 mm[Hg] Univer sity [facility] Diastolic blood 2020-12-03 19:41:00 82 mm[Hg] [facility] 2020-12-03 19:41:00 72 /min [facility] Body temperature 2020-12-03 19:41:00 [facility].11 [facility] height 2020-12-03 19:41:00 157.5 cm [facility] Body weight 2020-12-03 19:41:00 73.029 kg [facility] BMI 2020-12-03 19:41:00 29.45 kg/m2 [facility] Procedures Procedure Date / Time Performed Performing Clinician Ruben e ASSIGNMENT OF BENEFITS 2020-07-30 14:40:18 Doctor Unassigned, No [facility] Branch Encounters Start End Encounter Admission Attending Care Care Encounter Source Date/Time Date/Time Type Type Clinicians Facility Department ID 2019-12-04 Inpatient HCACL MARLEY [id number] [facility] 19:27:00 [facility] 2021-08-30 2021-08-30 Parul Lopes [facility] 1.2.840.114 [id number] Univers 00:00:00 00:00:00 Yash HECK [id number] i ty of [id number] [phone] [address] 2021-07-13 2021-07-13 Parul Naranjo [facility] 1.2.840.114 [id number] Univers 00:00:00 00:00:00 Killian Heck [id number] [id number] [phone] [address] 2021-06-06 2021-06-06 Parul Lopes [facility] 1.2.840.114 [id number] Univers 00:00:00 00:00:00 Yash [place] [id number] i [id number] [phone] [address] 2021-04-16 2021-04-16 Office Angie AKAUGUST 1.2.840.114 [id number] Univers 10:15:45 10:30:45 Visit Yash [facility] [id number] it y of Russ [place] [id number] Gen as Professio [phone] [address] Office Building One 2021-04-16 2021-04-16 Outpatient Derek HUNTERCYN [facility] [id number] Univers 10:15:00 10:15:00 YASH [id number] [facility] 2021-04-16 2021-04-16 [facility] [id number] Univers 10:15:00 10:15:00 YASH [facility] 2021-04-16 2021-04-16 [facility] 1.2.840.114 [id number] Univers 00:00:00 00:00:00 Yash [place] [id number] i ty [id number] [phone] [address] 2021-01-23 2021-01-23 [facility] 1.2.840.114 [id number] Univers 00:00:00 00:00:00 Yash [place] [id number] i ty [id number] [phone] [address] 2021-01-02 2021-01-02 [facility] 1.2.840.114 [id number] Univers 00:00:00 00:00:00 Outreach [facility] [id number] i ty of [facility] [id number] [place] [phone] [address] 2020-12-03 2020-12-03 Outpatient Derek LOPES [facility] [id number] Univers 13:45:00 13:45:00 YASH [id number] [facility] 2020-12-03 2020-12-03 [facility]patient [facility] [id number] Univers 13:45:00 13:45:00 YASH [facility] 2020-12-03 2020-12-03 [facility] 1.2.840.114 [id number] Univers 13:25:58 13:40:58 Visit [facility] [id number] it y of Russ Heck [id number] Gen as Professio [phone] [address] One 2020-11-02 2020-11-02 [facility] 1.2.840.114 [id number] Univers 00:00:00 00:00:00 Yash [place] [id number] i ty [id number] [phone] [address] 2020-10-15 2020-10-15 [facility] 1.2.840.114 [id number] 00:00:00 00:00:00 Yash [place] [id number] devika [place] [id number] Professio [phone] [address] 2020-10-15 2020-10-15 [facility] 1.2.840.114 [id number] Univers 00:00:00 00:00:00 Yash [place] [id number] i ty of dev[id number] [phone] [address] 2020-10-13 2020-10-13 [facility], [facility] MALENA [id number] [facility] 12:00:00 12:00:00 Nena [id number] [facility] 2020-09-23 2020-09-23 [facility] 1.2.840.114 [id number] 00:00:00 00:00:00 Yahs [place] [id number] Russ [place] [id number] Professio [phone] [address] 2020-09-23 2020-09-23 [facility] 1.2.840.114 [id number] Univers 00:00:00 00:00:00 Yash [place] [id number] i ty [place] [id number] [phone] [address] 2020-08-06 2020-08-06 [facility] 1.2.840.114 [id number] 00:00:00 00:00:00 Yash Heck [id number] [place] [id number] Professio [phone] [address] 2020-08-06 2020-08-06 [facility] 1.2.840.114 [id number] Univers 00:00:00 00:00:00 Yash [place] [id number] i ty [id number] [phone] Mt dical [address] 2020-07-30 2020-07-30 Laboratory Only, [facility] 1.2.840.114 [id number] 09:54:15 10:09:15 Only Marely Heck [id number] [place] [id number] [place] [phone] [facility] 2020-07-30 2020-07-30 Laboratory Only, [facility] Test [facility] 1.2.840. 114 [id number] [facility] 09:54:15 10:09:15 Only Marielena [place] [id number] ity of [id number] [place] [phone] [address] 2020-07-30 2020-07-30 Outpatient R [facility] [id number] Univers 09:30:00 09:30:00 [id number] ity [facility] 2020-07-30 2020-07-30 Outpatient R GINO [facility] [id number] Univers 09:30:00 09:30:00 MARIELENA holm [facility] 2020-07-30 2020-07-30 Orders Doctor COVARRUBIAS 1.2.840.114 [id number] Univers 00:00:00 00:00:00 Only UnassCLARKE garcia [id number] [facility] [id number] Gen as [phone] [address] 2020-07-30 2020-07-30 Orders Doctor COVARRUBIAS 1.2.840.114 [id number] 00:00:00 00:00:00 Only Unassigned, CLARKE 350.1.13.10 [place] [facility] [phone] 009 2020-07-28 2020-07-28 [facility] 1.2.840.114 [id number] Univers 00:00:00 00:00:00 Yash [place] [id number] i ty [id number] [phone] [address] 2020-07-28 2020-07-28 [facility] 1.2.840.114 [id number] 00:00:00 00:00:00 Yash Heck [id number] [facility] [id number] Professio [phone] [address] 2020-05-14 2020-05-14 Pre Visit [facility] 1.2.840.114 [id number] Univers 00:00:00 00:00:00 Outreach Yash Heck [id number] ity [id number] [phone] [address] 2020-05-14 2020-05-14 Pre Visit [facility] 1.2.840.114 [id number] 00:00:00 00:00:00 Outreach Yash Heck [id number] [facility] [id number] Professio [phone] [address] 2020-05-09 2020-05-09 [facility] [id number] Univers 00:00:00 00:00:00 Yash Heck [id number] [place] [phone] [address] 2020-05-09 2020-05-09 [facility] 1.2.840.114 [id number] 00:00:00 00:00:00 Yash [place] [id number] Edward [facility] [id number] Professio [phone] [address] 2020-03-25 2020-03-25 Outpatient Derek [facility] [id number] N-20 Univers 13:15:00 13:15:00 YASH [id number] [facility] 2020-03-25 2020-03-25 Outpatient Derek [facility] [id number] Univers 13:15:00 13:15:00 YASH [facility] 2020-03-25 2020-03-[address] [facility] [id number] Univers 07:51:56 08:06:56 ne Visit Yash Heck [id number] [facility] [id number] [phone] [place] dical [address] 2020-03-25 2020-03-[address] [facility] [id number] 07:51:56 08:06:56 ne Visit Yash Heck [id number] [facility] [id number] Professio [phone] [address] Results Test Description Test Time Test Comments Results Result Comments Source TROPONIN-I RAPID 2019-12-04 23:09:00 Test Item Value Reference Range Interpretation Comme nts TROPONIN-I RAPID (test code = 0.00 ng/mL 0.00-0.08 N Performed by certified metal machine operator TROPIRAP) at [facility] Negative: <= 0.08 Positive: >= 0.09An [...] changes in trop onin levels characteristic of AR. - XR CHEST 2 [id number] 20:56:00 FAX: Genaro Soria MD [phone] [place]: St: PRE Name: KEENAN LOPEZ [facility] [place] : 1950 Age/S: 69/F [address] [place] [address] Unit#: [id number] Loc: [place] [address] Phys: Genaro Soria MD Acct: [id number] Dis Date: Status: PRE ER PHONE #: [phone] Exam Date: 12/04/20192047 FAX #: [phone] Reason: Chest Pain EXAMS: CPT CODE: [id number] XR CHEST 2 V 26367 Clinical Indication: Chest Pain Comparison: None FINDINGS: The frontal and lateral chest radiographs show normal lung volumes. No interstitial or airspace opacities are seen. No pleural effusions are present. No pneumothorax is seen. The heart is normal in size. The trachea is midline. There are no clinically significant osseous abnormalities noted. IMPRESSION:No chest radiographic evidence of acute cardiopulmonary disease. SL: NATALIYAU-H at 2055 Reported and signed by: King Boothe M.D. CC: Genaro Soria MD Technologist: RT Sy(R) Trnscrd Date/Time/By: 12/04/2019 (2055) : By: MagaliLNV Orig Print D/T: S: 12/04/2019 (2058) PAGE 1 Signed ReportBASIC METABOLIC [id number] 20:49:00 Test Item Value Reference Range Interpretation [...] 9.3 mg/dL 8.0-10.5 N CA) BASIC METABOLIC [id number] 20:46:00 Test Item Value Reference Range Interpretation [...] CA) 9.3 mg/dL 8.0-10.5 N CBC W/AUTO [id number] 20:36:00 Test Item Value Reference Range Interpretation [...] REQUIRED (test code NO = MDIFF) TROPONIN-I [id number] 20:09:00 Test Item Value Reference Range Interpretation Comments TROPONIN-I RAPID 0.00 ng/mL 0.00-0.08 N Performed b y certified (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 UR COMPREHENSIVE DRUG [id number] 21:15:00 Test Item Value Reference Range Interpretation Comments DRUGS DETECTED IN URINE (test code = DRUGTU) ALCOHOL ETHYL [id number] 21:15:00 Test Item Value Reference Range Interpretation Comments ALCOHOL ETHYL BLOOD (test code = MRO ALCETH) UR COMPREHENSIVE DRUG [id number] 21:15:00 Test Item Value Reference Range Interpretation Comments DRUGS DETECTED IN URINE REPORT SENT TO [facility] (test code = DRUGTU) ALCOHOL ETHYL [id number] 21:15:00 Test Item Value Reference Range Interpretation Comments ALCOHOL ETHYL BLOOD (test code = MRO ALCETH)
== END 2021-09-05 20:12 | disposition home or self-care (01) ==
LOC: ER 17:52
DX: S93.402A Sprain of unspecified ligament of left ankle, initial encounter (principal); I10 Essential (primary) hypertension; E78.5 Hyperlipidemia, unspecified; Z88.5 Allergy status to narcotic agent
CPT/HCPCS: 93971; 99284

== ENCOUNTER 2022-08-25 11:00 | Day surgery (SDC) | payer OTHER ==
--- NOTE | 2022-08-23 10:39 | RAD REPORT ---
EXAM DESCRIPTION: RAD - Chest Pa And Lat (2 Views) - 08/23/2022 10:19 am CLINICAL HISTORY: pre op Chest pain. COMPARISON: Chest Single View dated 08/10/2022 TECHNIQUE: PA and lateral views of the chest were obtained. FINDINGS: The lungs are hyperexpanded compatible with COPD. The heart is upper limit of normal in si ze. No fracture or aggressive bony process. IMPRESSION: COPD without acute process identified. The USPSTF recommends annual screening for lung cancer with low-dose CT (LDCT) in adults aged 50 to 80 years who have a 20 pack-year smoking history and currently smoke or have quit within the past 15 years.
[~2022-08-25 11:00] MED LIST: ASPIRIN 325 MG TAB ONE; ATROPINE SULF 1 MG/10 ML SYR IV ONE; CLOPIDOGREL 75 MG TABLET ONE; FENTANYL CITR 100 MCG/2 ML ONE; HEPA 1000U/500MLS 2,000 UNIT/1,000 ML BAG IV ONE; HEPARIN 10,000 UNIT/10 ML VIAL IV ONE; HEPARIN 5000 UNIT/ML 1 ML VIAL ONE; LIDOCAINE 1% MPF 30 ML VIAL ONE; MIDAZOLAM HCL 2 MG/2 ML INJ ONE; NITROGLYCERIN 100 MCG/ML SYR (for cath lab use only) IV ONE; NITROGLYCERIN/D5W 25 MG/250 ML BTL IV ONE; TICAGRELOR 90 MG TABLET PO ONE; VERAPAMIL HCL 10 MG/4 ML VIAL IV ONE
[2022-08-25] MEDS ORDERED: NA CHLORIDE 0.9% 500 ML ONE (11:13)
--- NOTE | 2022-08-25 13:20 | OP ---
Date of Procedure: 08/25/2022 Surgeon: GIACOMO TRUJILLO Procedure Performed: 1.Selective coronary angiogram. 2.Left heart catheterization. Indication: Unstable angina. Access: Right radial artery 6-Azerbaijani closed with TR band. Complications: None. Estimated Blood Loss: Bleeding less than 10 mL. Anesthesia: Total sedation time was 25 minutes, used fentanyl and Versed. Description Of Procedure: After risks, benefits, and alternatives were explained, patient agreed to procedure and signed informed consent. Patient was brought to the cardiac catheterization laboratory , prepped and draped in a sterile fashion. Then I accessed right radial artery using pediatric micro puncture kit, placed a 6-Azerbaijani Slender sheath and took a 5-Azerbaijani Rhodell 4 catheter in the aortic matthieu t, engaged left main, right coronary artery, took standard views and the catheter was pushed over the wire into the LV across the aortic valve and measured the LVEDP and pullback. Did not record any gr adient. Then, we removed the catheter and the sheath, placed TR band with good hemostasis. Findings: 1.Left main is large and normal. 2.LAD: Large and normal. Normal diagonal branches. 3.Left circumflex is large and normal. Normal OM branches. 4.RCA: Large dominant with mid diffuse 30% stenosis. Otherwise, no disease. 5.Normal LVEDP around 10 mmHg. Conclusion: 1.Mild nonobstructive coronary artery disease. 2.Borderline normal LVEDP. Plan: Medical management. SR/MODL Voice ID: [id number] Report ID: [id number]
[2022-08-25] MEDS ORDERED: ONDANSETRON 4 MG/2 ML VIAL ONE (13:26)
[2022-08-25 14:54] VITALS: BP 104/55; O2SAT 94
== END 2022-08-25 14:54 | disposition home or self-care (01) ==
LOC: CCL 11:00
PROVIDERS: ATTEND Internal Medicine
DX: I25.10 Atherosclerotic heart disease of native coronary artery without angina pectoris (principal)
CPT/HCPCS: 71046; 93458; C1893; J1644; J2250; J2405; J3010; J7040; Q9966

== ENCOUNTER 2023-03-08 06:47 | Observation (INO) | payer OTHER ==
[2023-03-03 10:22] LABS: Absolute Lymphocytes (CBC) 1.1 K/uL (0.7-4.9); Hematocrit 37.5 % (36.0-45.0); Lymphocytes % 18.4 % (15.3-44.8); MCV 92.6 fL (80-100); MPV 9.3 fL (7.6-11.3); RBC Red Blood Cell Count 4.05 M/uL (3.86-4.86)
[2023-03-03 10:26] LABS: Protime INR 0.94
--- NOTE | 2023-03-03 10:34 | RAD REPORT ---
EXAM DESCRIPTION: Mauro Reinoso And Daljit (2 Views)03/03/2023 9:45 am CLINICAL HISTORY: Preop for knee surgery. Hypertension COMPARISON: 2021 FINDINGS: The lungs appear clear of acute infiltrate. The heart is mildly enlarged IMPRESSION: No acute abnormalities displayed
[2023-03-03 10:46] LABS: Albumin 3.9 g/dL (3.4-5.0); Bilirubin Total 0.3 mg/dL (0.2-1.0); Potassium 2.9 mEq/L (3.5-5.1); Protein, Total 7.5 g/dL (6.4-8.2)
[2023-03-03 10:53] LABS: Urine Bilirubin NEGATIVE (Negative); Urine Blood Trace (Negative); Urine Clarity Clear (Clear); Urine Color Yellow (Yellow); Urine Glucose Negative (Negative); Urine Protein NEGATIVE (Negative); Urine Urobilinogen 0.2 mg/dL (0.2-1.0)
[2023-03-03 10:56] LABS: Urine Bacteria <20 /HPF (<20); Urine RBC <5 /HPF (None Seen)
--- NOTE | 2023-03-03 13:42 | EKG ---
Test Date: 2023-03-03 Test Time: 09:33:23 [place]ra[place] Laborer: NATHAN MEASUREMENT RESULTS: Intervals: Rate: 64 NC: 120 QRSD: 72 QT: 418 QTc: 431 [place]: P: 54 NC: 120 QRS: 36 T: 54 INTERPRETIVE STATEMENTS: Sinus rhythm with premature supraventricular complexes ST abnormality, possible digitalis effect Abnormal ECG Compared to ECG 08/10/2022 06:52:21 Atrial premature complex(es) now present ST (T wave) deviation now present Electronically Signed On 03-03-23 13:41:37 CDT by Niranjan Bazzi
[2023-03-08] MEDS ORDERED: CEFAZOLIN SODIUM 2 GM/VIAL ONE (07:26)
[2023-03-08] MEDS ORDERED: Ringers Lactate 1,000 ML IV ONE (07:26)
[2023-03-08] MEDS ORDERED: NA CHLORIDE 0.9% 1,000 ML ONE ×3 (07:51→12:32)
[2023-03-08 08:47] LABS: Potassium 3.6 mEq/L (3.5-5.1)
[2023-03-08] MEDS ORDERED: SCOPOLAMINE HYDROBROMIDE PATCH TD ONE (09:02)
[2023-03-08] MEDS ORDERED: GABAPENTIN 100 MG CAP ONE (09:02)
[2023-03-08] MEDS ORDERED: CELECOXIB 100 MG CAPSULE ONE (09:02)
[2023-03-08] MEDS ORDERED: Oxycodone HCl/Acetaminophen 1 TAB TAB ONE (09:03)
[2023-03-08] MEDS ORDERED: ACETAMINOPHEN 500 MG TAB ONE (09:03)
[2023-03-08] MEDS ORDERED: LIDOCAINE 1% MPF 5 ML VIAL ONE (10:41)
[2023-03-08] MEDS ORDERED: FENTANYL CITR 100 MCG/2 ML ONE (10:42)
[2023-03-08] MEDS ORDERED: BUPIVACAINE 0.25% PF 30 ML VIAL ONE (10:42)
[2023-03-08] MEDS ORDERED: MIDAZOLAM HCL 2 MG/2 ML INJ ONE (10:42)
[2023-03-08] MEDS ORDERED: dexAMETHasone 10 MG/ML VIAL ONE (10:42)
[2023-03-08] MEDS ORDERED: EPINEPHRINE/PF 1 MG/ML AMP ONE (10:42)
[2023-03-08] MEDS ORDERED: MEPERIDINE HCL 25 MG/ML SYR ONE (11:21)
[2023-03-08] MEDS ORDERED: HYDROMORPHONE HCL 1 MG/ML INJ ONE ×2 (11:28→14:41)
[2023-03-08] MEDS ORDERED: TRANEXAMIC ACID 1,000 MG/10 ML VIAL IV ONE (11:29)
[2023-03-08] MEDS ORDERED: LIDOCAINE 2% MPF 5 ML VIAL ONE (11:33)
[2023-03-08] MEDS ORDERED: propofoL 200 MG/20 ML VIAL IV ONE (11:33)
[2023-03-08] MEDS ORDERED: KETOROLAC 30 MG/ML INJ ONE (11:34)
[2023-03-08] MEDS ORDERED: KETAMINE HCL IN 0.9 % NACL 50 MG/5 ML SYRINGE IV ONE (11:34)
[2023-03-08] MEDS ORDERED: dexAMETHasone 4 MG/ML VIAL ONE (11:35)
[2023-03-08] MEDS ORDERED: ONDANSETRON 4 MG/2 ML VIAL ONE (11:35)
[2023-03-08] MEDS ORDERED: ROCURONIUM 50 MG/5 ML VIAL IV ONE (11:36)
[2023-03-08] MEDS ORDERED: GLYCOPYRROLATE 0.2 MG/ML SYR ONE (13:35)
[2023-03-08] MEDS ORDERED: ONDANSETRON 4 MG/2 ML VIAL IV PRN (13:43)
[2023-03-08] MEDS ORDERED: DOCUSATE NA 100 MG CAP PO PRN (13:43)
--- NOTE | 2023-03-08 13:43 | P.BOP ---
Preoperative diagnosis: right knee arthritis Postoperative diagnosis: same Primary procedure: right total knee arthoplasty Estimated blood loss: 100 ccs Anesthesia: General Complications: None Transferred to: Recovery Room Condition: Good
[2023-03-08] MEDS ORDERED: NEOSTIGMINE 1 MG/ML -10 ML VIAL ONE (13:47)
--- OUTSIDE RECORDS SUMMARY | 2023-03-08 14:05 | XMS REPORT | Continuity of Care Document ---
:1950 Author Organization [facility] t Address [address] [place] [address] [place] [id number] Care Team Providers Name Role Phone Yash Lopes MD Primary Care Physician Yash Lopes Attending Clinician Unavailable Yash Lopes MD Attending Clinician Doctor Unassigned, [place] Attending Clinician Unavailable Yash Lopes Attending Clinician Unavailable YASH LOPES Attending Clinician Unavailable YU GUIDO Attending Clinician Unavailable Yu Guido MD Attending Clinician Oralia Sneed Attending Clinician Lab, Ang - Db Attending Clinician Unavailable ORALIA WEBBER Attending Clinician Unavailable Killian Naranjo MD Attending Clinician Nestor Wilson DO Attending Clinician Nena Griffith Attending Clinician Unavailable Only, Adc Test Attending Clinician Unavailable Marielena Christian MD Attending Clinician MARIELENA CHRISTIAN Attending Clinician Unavailable RADIOLOGY Attending Clinician Unavailable Yash Lopes Admitting Clinician Unavailable RICHARD LYLESA Admitting Clinician Unavailable Payers Payer Name Policy Type Policy Number Effective Date Expiration Date S ource Problems Condition Condition Condition Status Onset Resolution Last Treating Co mments Source Name Details Category Date Date Treatment Clinician Date Low TSH Low TSH Disease Active Univers level level 2-16 ity of 00:00: [place] 00 Medical Branch CAD CAD Disease Active Univers (coronary (coronary 2-10 ity of artery artery 00:00: [place] disease) disease) 00 Medica l Branch MA MA Disease Active Overview: Univer s (myocardia (myocardia 2-10 Formattin ity of l l 00:00: g of this [place] infarction infarction 00 note Me dical ) ) might be Branch different from the original. 2019 Hypokalemi Hypokalemi Disease Active U nivers a a 6-25 ity of 00:00: [place] 00 Medical Branch Depression Depression Disease Active U nivers 2-23 ity of 00:00: [place] [facility] Hyperlipid Hyperlipid Disease Active U nivers emia emia 2-23 ity of 00:00: [place] 00 Medical Branch HTN HTN Disease Active Univers (hypertens (hypertens 2-23 it y of ion) ion) 00:00: [place] 00 Medical Branch Allergic Allergic Disease Active Unive rs rhinitis rhinitis 2-23 ity of 00:00: [place] 00 Medical Branch Osteoarthr Osteoarthr Disease Active U nivers itis itis 2-23 ity of 00:00: [place] 00 Medical Branch Allergies, Adverse Reactions, Alerts Allergy Allergy Status Severity Reaction(s) Onset Inactive Treating Comm ents Source Name Type Date Date Clinician meperidi DA Active U 2019-0 [facility] [place] [facility] meperidi DA Active U UNKNOWN 2020-0 [facility] [place] [facility] Meperidi Propensi Active Other (See Respirat Methodi ne ty to Comments) 7-[address] adverse 00:00: [facility] reaction [facility] l s to drug Meperidi Propensi Active Other - See Other U nivers ne ty to comments 2-23 reaction( ity o f adverse 00:00: s): Other [place] reaction 00 (see Medical s comments) Branch Respirato ry Distress Respirato ry Distress MEPERIDI DRUG Active Unknown-Cmnt Un pratik NE INGREDI 223 ity of 00:00: [place] [address] Medical [place] Family History Family Member Diagnosis Comments Start Date Stop Date Source Natural [facility] father [facility] Maternal grandfather [facility] Maternal grandmother [facility] Natural mother [facility] Social History Social Habit Start Date Stop Date Quantity Comments Source Gender identity 2018-12-17 Identifies as [facility] 09:03:28 female gender Hospital (finding) Sexual orientation 2018-12-17 Heterosexual Meth odist 09:03:28 (finding) Hospital History SDOH [facility] St[facility] Drinks Hospit al History SDOH [facility] Exposure to 2022-08-28 2022-09-07 Not sure [facility] [place]-CoV-2 (event) 00:00:00 13:48:00 [facility] History of Social 2019-06-20 2019-06-[address] function 00:00:00 00:00:00 Hospital Alcohol intake 2018-12-16 2018-12-16 Current non-drinker M ethodist 00:00:00 00:00:00 of alcohol Hospital (finding) History SDOH 2018-12-15 2018-12-15 1 [facility] Frequency 00:00:00 00:00:00 Hospita l Tobacco use and 2015-12-24 2015-12-24 Smokeless tobacco Un iversity of exposure 00:00:00 00:00:00 non-user [facility] Sex Ass[birth year] Universit y of 00:00:00 00:00:00 [facility] Smoking Status Start Date Stop Date Source Never smoked tobacco [facility] Medications Ordered Filled Start Stop Current Ordering Indication Dosage Frequency Signature Comments Components Source Medication Medication Date Date Medication? Clinician (SIG) Name Name atorvastati Yes [id number] 10mg TAKE 1 Univers n 10 mg 3-13 TABLET BY ity of tablet 00:00: MOUTH AT [place] [address] [facility] [place] atorvastati Yes [id number] 10mg TAKE 1 Univers n 10 mg 3-13 TABLET BY ity of tablet 00:00: MOUTH AT [place] 00 BEDTIME Medical Branch atorvastati 0 Yes [id number] 10mg TAKE 1 Univers n 10 mg 3-13 TABLET BY ity of tablet 00:00: MOUTH AT [place] [facility] Medical Branch atorvastati 0 Yes [id number] 10mg TAKE 1 Univers n 10 mg 3-13 TABLET BY ity of tablet 00:00: MOUTH AT [place] [facility] Medical Branch atorvastati 0 Yes [id number] 10mg TAKE 1 Univers n 10 mg 3-13 TABLET BY ity of tablet 00:00: MOUTH AT [place] [facility] Medical Branch atorvastati 0 Yes [id number] 10mg TAKE 1 Univers n 10 mg 3-13 TABLET BY ity of tablet 00:00: MOUTH AT [place] [facility] Medical Branch atorvastati Yes [id number] 10mg TAKE 1 Univers n 10 mg 3-13 TABLET BY ity of tablet 00:00: MOUTH AT [place] [facility] Medical Branch MELOXICAM 2022-0 Yes [id number] TAKE 1 U nivers 15 mg 1-23 TABLET BY ity of tablet 00:00: MOUTH [place] EVERY DAY Medical Branch MELOXICAM 2022-0 Yes [id number] TAKE 1 U nivers 15 mg 1-23 TABLET BY ity of tablet 00:00: [facility] EVERY DAY Medical Branch MELOXICAM 2022-0 Yes [id number] TAKE 1 U nivers 15 mg 1-23 TABLET BY ity of tablet 00:00: [facility] EVERY DAY Medical Branch MELOXICAM 3-0 Yes [id number] TAKE 1 U nivers 15 mg 1-23 TABLET BY ity of tablet 00:00: [facility] EVERY DAY Medical Branch MELOXICAM 3-0 Yes [id number] TAKE 1 U nivers 15 mg 1-23 TABLET BY ity of tablet 00:00: [facility] EVERY DAY Medical Branch MELOXICAM 2022-0 Yes TAKE 1 U nivers 15 mg 1-23 TABLET BY ity of tablet 00:00: [facility] EVERY DAY Medical Branch MELOXICAM 2022-0 Yes [id number] TAKE 1 U nivers 15 mg 1-23 TABLET BY ity of tablet 00:00: [facility] EVERY DAY Medical Branch MELOXICAM 2022-0 Yes TAKE 1 U nivers 15 mg 1-23 TABLET BY ity of tablet 00:00: MOUTH [place] 00 EVERY DAY Medical Branch VALSARTAN-H Yes [id number] TAKE 1 Univers YDROCHLOROT 1-03 TABLET BY ity of HIAZIDE 00:00: MOUTH [place] 320-25 mg 00 EVERY DAY Medic al per tablet Branch VALSARTAN-H Yes [id number] TAKE 1 Univers YDROCHLOROT 1-03 TABLET BY ity of HIAZIDE 00:00: MOUTH [place] 320-25 mg 00 EVERY DAY Medic al per tablet Branch VALSARTAN-H Yes [id number] TAKE 1 Univers YDROCHLOROT 1-03 TABLET BY ity of HIAZIDE 00:00: MOUTH [place] 320-25 mg 00 EVERY DAY Medic al per tablet Branch VALSARTAN-H Yes [id number] TAKE 1 Univers YDROCHLOROT 1-03 TABLET BY ity of HIAZIDE 00:00: MOUTH [place] 320-25 mg 00 EVERY DAY Medic al per tablet Branch VALSARTAN-H Yes [id number] TAKE 1 Univers YDROCHLOROT 1-03 TABLET BY ity of HIAZIDE 00:00: MOUTH [place] 320-25 mg 00 EVERY DAY Medic al per tablet Branch VALSARTAN-H Yes [id number] TAKE 1 Univers YDROCHLOROT 1-03 TABLET BY ity of HIAZIDE 00:00: MOUTH [place] 320-25 mg 00 EVERY DAY Medic al per tablet Branch VALSARTAN-H Yes [id number] TAKE 1 Univers YDROCHLOROT 1-03 TABLET BY ity of HIAZIDE 00:00: MOUTH [place] 320-25 mg 00 EVERY DAY Medic al per tablet Branch VALSARTAN-H Yes [id number] TAKE 1 Univers YDROCHLOROT 1-03 TABLET BY ity of HIAZIDE 00:00: MOUTH [place] 320-25 mg 00 EVERY DAY Medic al per tablet Branch VALSARTAN-H Yes [id number] TAKE 1 Univers YDROCHLOROT 1-03 TABLET BY ity of HIAZIDE 00:00: MOUTH [place] 320-25 mg 00 EVERY DAY Medic al per tablet Branch CITALOPRAM 2021-10 Yes [id number] TAKE 1 U nivers 20 mg 0-26 TABLET BY ity of tablet 00:00: MOUTH [place] 00 EVERY DAY Medical Branch CITALOPRAM 2021-10 Yes [id number] TAKE 1 U nivers 20 mg 0-26 TABLET BY ity of tablet 00:00: MOUTH [place] 00 EVERY DAY Medical Branch CITALOPRAM 2021-10 Yes [id number] TAKE 1 U nivers 20 mg 0-26 TABLET BY ity of tablet 00:00: MOUTH [place] 00 EVERY DAY Medical Branch CITALOPRAM 2021-10 Yes [id number] TAKE 1 U nivers 20 mg 0-26 TABLET BY ity of tablet 00:00: MOUTH [place] 00 EVERY DAY Medical Branch CITALOPRAM 2021-10 Yes [id number] TAKE 1 U nivers 20 mg 0-26 TABLET BY ity of tablet 00:00: MOUTH [place] 00 EVERY DAY Medical Branch CITALOPRAM 2021-10 Yes [id number] TAKE 1 U nivers 20 mg 0-26 TABLET BY ity of tablet 00:00: MOUTH [place] 00 EVERY DAY Medical Branch CITALOPRAM 2021-10 Yes [id number] TAKE 1 U nivers 20 mg 0-26 TABLET BY ity of tablet 00:00: MOUTH [place] 00 EVERY DAY Medical Branch CITALOPRAM 2021-10 Yes [id number] TAKE 1 U nivers 20 mg 0-26 TABLET BY ity of tablet 00:00: MOUTH [place] 00 EVERY DAY Medical Branch CITALOPRAM 2021-10 Yes [id number] TAKE 1 U nivers 20 mg 0-26 TABLET BY ity of tablet 00:00: MOUTH [place] 00 EVERY DAY Medical Branch CITALOPRAM 2021-10 Yes [id number] TAKE 1 U nivers 20 mg 0-26 TABLET BY ity of tablet 00:00: MOUTH [place] 00 EVERY DAY Medical Branch CITALOPRAM 2021-10 Yes [id number] TAKE 1 U nivers 20 mg 0-26 TABLET BY ity of tablet 00:00: MOUTH [place] 00 EVERY DAY Medical Branch CITALOPRAM 2021-10 Yes [id number] TAKE 1 U nivers 20 mg 0-26 TABLET BY ity of tablet 00:00: MOUTH [place] 00 EVERY DAY Medical Branch CITALOPRAM 2021-10 Yes [id number] TAKE 1 U nivers 20 mg 0-26 TABLET BY ity of tablet 00:00: MOUTH [place] 00 EVERY DAY Medical Branch CITALOPRAM 2021-10 Yes [id number] TAKE 1 U nivers 20 mg 0-26 TABLET BY ity of tablet 00:00: MOUTH [place] 00 EVERY DAY Medical Branch CITALOPRAM 2021-10 Yes [id number] TAKE 1 U nivers 20 mg 0-26 TABLET BY ity of tablet 00:00: MOUTH [place] EVERY DAY Medical Branch metoprolol 2021-10 Yes 25mg Take 25 mg U nivers succinate 0-21 by mouth ity of XL 25 mg 24 00:[place] tablet 00 morning. Medica l Branch metoprolol 2021-10 Yes 25mg Take 25 mg U nivers succinate 0-21 by mouth ity of XL 25 mg 24 00:[place] 00 morning. Medica l Branch metoprolol 2021-10 Yes 25mg Take 25 mg U nivers succinate 0-21 by mouth ity of XL 25 mg 24 00:00[place] 00 morning. Medica l Branch metoprolol 2021-10 Yes 25mg Take 25 mg U nivers succinate 0-21 by mouth ity of XL 25 mg 24 00:[place] 00 morning. Medica l Branch metoprolol 2021-10 Yes 25mg Take 25 mg U nivers succinate 0-21 by mouth ity of XL 25 mg 24 00:00: [place] 00 morning. Medica l Branch metoprolol 2021-10 Yes 25mg Take 25 mg U nivers succinate 0-21 by mouth ity of XL 25 mg 24 00:00[place] 00 morning. Medica l Branch metoprolol 2021-10 Yes 25mg Take 25 mg U nivers succinate 0-21 by mouth ity of XL 25 mg 24 00:00: [place] 00 morning. Medica l Branch metoprolol 2021-10 Yes 25mg Take 25 mg U nivers succinate 0-21 by mouth ity of XL 25 mg 24 00:00: [place] 00 morning. Medica l Branch metoprolol 2021-10 Yes 25mg Take 25 mg U nivers succinate 0-21 by mouth ity of XL 25 mg 24 00:00: [place] tablet 00 morning. Medica l Branch metoprolol 2021-10 Yes 25mg Take 25 mg U nivers succinate 0-21 by mouth ity of XL 25 mg 24 00:00[place] [facility]10 Yes 25mg Take 25 mg U nivers succinate 0-21 by mouth ity of XL 25 mg 24 00:00: [place] 00 morning. Medica l Branch metoprolol 2021-10 Yes 25mg Take 25 mg U nivers succinate 0-21 by mouth ity of XL 25 mg 24 00:00: [place] morning. Medica [place] Branch metoprolol 2021-10 Yes 25mg Take 25 mg U nivers succinate 0-21 by mouth ity of XL 25 mg 24 00:[place]: [place] tablet morning. Medica l Branch metoprolol 2021-10 Yes 25mg Take 25 mg U nivers succinate 0-21 by mouth ity of XL 25 mg 24 00:[place] tablet morning. [facility] l [place] ATORVASTATI Yes [id number] 10mg TAKE 1 Univers N 10 mg 2-21 TABLET BY ity of tablet 00:00: MOUTH AT [address] [facility] Yes [id number] 10mg TAKE 1 Univers N 10 mg 2-21 TABLET BY ity of tablet 00:00: MOUTH AT [address] [facility] Yes [id number] 10mg TAKE 1 Univers N 10 mg 2-21 TABLET BY ity of tablet 00:00: MOUTH AT [address] [facility] Yes [id number] 10mg TAKE 1 Univers N 10 mg 2-21 TABLET BY ity of tablet 00:00: MOUTH AT [address] ATORVASTA Yes [id number] 10mg TAKE 1 Univers N 10 mg 2-21 TABLET BY ity of tablet 00:00: MOUTH AT [address] [facility] Yes [id number] 10mg TAKE 1 Univers N 10 mg 2-21 TABLET BY ity of tablet 00:00: MOUTH AT [address] [facility] Yes [id number] 10mg TAKE 1 Univers N 10 mg 2-21 TABLET BY ity of tablet 00:00: MOUTH AT [address] [facility] Yes [id number] 10mg TAKE 1 Univers N 10 mg 2-21 TABLET BY ity of tablet 00:00: MOUTH AT [place] [facility] Yes [id number] 10mg TAKE 1 Univers N 10 mg 2-21 TABLET BY ity of tablet 00:00: MOUTH AT [place] [facility] Yes [id number] 10mg TAKE 1 Univers N 10 mg 2-21 TABLET BY ity of tablet 00:00: MOUTH AT [place] [facility] Yes [id number] 10mg TAKE 1 Univers N 10 mg 2-21 TABLET BY ity of tablet 00:00: MOUTH AT [place] [facility] Yes [id number] 10mg TAKE 1 Univers N 10 mg 2-21 TABLET BY ity of tablet 00:00: MOUTH AT [place] [facility] Yes [id number] 10mg TAKE 1 Univers N 10 mg 2-21 TABLET BY ity of tablet 00:00: MOUTH AT [place] [facility] Yes [id number] 10mg TAKE 1 Univers N 10 mg 2-21 TABLET BY ity of tablet 00:00: MOUTH AT [place] [facility] 3- No [id number] 10mg TAKE 1 Univers N 10 mg 2-21 03-13 TABLET BY ity of tablet 00:00: 00:00 MOUTH AT [place] 00 :[facility] KCL 20 mEq Yes 20meq Take 20 Uni vers tablet 1-31 mEq by ity of 00:00: mouth daily. Medical Branch KCL 20 mEq Yes 20meq Take 20 Uni vers tablet 1-31 mEq by ity of 00:00: mouth [place] daily. Medical Branch KCL 20 mEq Yes 20meq Take 20 Uni vers tablet 1-31 mEq by ity of 00:00: mouth daily. Medical Branch KCL 20 mEq Yes 20meq Take 20 Uni vers tablet 1-31 mEq by ity of 00:00: mouth [place] daily. Medical Branch KCL 20 mEq Yes 20meq Take 20 Uni vers tablet 1-31 mEq by ity of 00:00: mouth [place] 00 daily. Medical Branch KCL 20 mEq 2-0 Yes 20meq Take 20 Uni vers tablet 1-31 mEq by ity of 00:00: mouth [place] 00 daily. Medical Branch KCL 20 mEq 2-0 Yes 20meq Take 20 Uni vers tablet 1-31 mEq by ity of 00:00: mouth [place] 00 daily. Medical Branch KCL 20 mEq 2-0 Yes 20meq Take 20 Uni vers tablet 1-31 mEq by ity of 00:00: mouth [place] 00 daily. Medical Branch KCL 20 mEq 2-0 Yes 20meq Take 20 Uni vers tablet 1-31 mEq by ity of 00:00: mouth [place] 00 daily. Medical Branch KCL 20 mEq 2-0 Yes 20meq Take 20 Uni vers tablet 1-31 mEq by ity of 00:00: mouth [place] 00 daily. Medical Branch KCL 20 mEq 2-0 Yes 20meq Take 20 Uni vers tablet 1-31 mEq by ity of 00:00: mouth [place] 00 daily. Medical Branch KCL 20 mEq 2-0 Yes 20meq Take 20 Uni vers tablet 1-31 mEq by ity of 00:00: mouth [place] 00 daily. Medical Branch KCL 20 mEq 2-0 Yes 20meq Take 20 Uni vers tablet 1-31 mEq by ity of 00:00: mouth [place] 00 daily. Medical Branch KCL 20 mEq 2-0 Yes 20meq Take 20 Uni vers tablet 1-31 mEq by ity of 00:00: mouth [place] 00 daily. Medical Branch KCL 20 mEq 2-0 Yes 20meq Take 20 Uni vers tablet 1-31 mEq by ity of 00:00: mouth [place] 00 daily. Medical Branch KCL 20 mEq 2-0 Yes 20meq Take 20 Uni vers tablet 1-31 mEq by ity of 00:00: mouth [place] 00 daily. Medical Branch KCL 20 mEq 2-0 Yes 20meq Take 20 Uni vers tablet 1-31 mEq by ity of 00:00: mouth [place] 00 daily. Medical Branch KCL 20 mEq 2-0 Yes 20meq Take 20 Uni vers tablet 1-31 mEq by ity of 00:00: mouth [place] 00 daily. Medical Branch KCL 20 mEq 2-0 Yes 20meq Take 20 Uni vers tablet 1-31 mEq by ity of 00:00: mouth [place] 00 daily. Medical Branch KCL 20 mEq Yes 20meq Take 20 Uni vers tablet 1-31 mEq by ity of 00:00: mouth [place] 00 daily. Medical Branch KCL 20 mEq Yes 20meq Take 20 Uni vers tablet 1-31 mEq by ity of 00:00: mouth [place] 00 daily. Medical Branch valsartan-h Yes [id number] 1{tbl} Take 1 Univers ydrochlorot 1-13 tablet by ity of hiazide 00:00: mouth [place] 320-25 mg 00 daily. Medical per tablet Branch valsartan-h Yes [id number] 1{tbl} Take 1 Univers ydrochlorot 1-13 tablet by ity of hiazide 00:00: mouth [place] 320-25 mg 00 daily. Medical per tablet Branch valsartan-h Yes [id number] 1{tbl} Take 1 Univers ydrochlorot 1-13 tablet by ity of hiazide 00:00: mouth [place] 320-25 mg 00 daily. Medical per tablet Branch valsartan-h Yes [id number] 1{tbl} Take 1 Univers ydrochlorot 1-13 tablet by ity of hiazide 00:00: mouth [place] 320-25 mg 00 daily. Medical per tablet Branch valsartan-h Yes [id number] 1{tbl} Take 1 Univers ydrochlorot 1-13 tablet by ity of hiazide 00:00: mouth [place] 320-25 mg 00 daily. Medical per tablet Branch valsartan-h Yes [id number] 1{tbl} Take 1 Univers ydrochlorot 1-13 tablet by ity of hiazide 00:00: mouth [place] 320-25 mg 00 daily. Medical per tablet Branch valsartan-h Yes [id number] 1{tbl} Take 1 Univers ydrochlorot 1-13 tablet by ity of hiazide 00:00: mouth [place] 320-25 mg 00 daily. Medical per tablet Branch valsartan-h Yes [id number] 1{tbl} Take 1 Univers ydrochlorot 1-13 tablet by ity of hiazide 00:00: mouth [place] 320-25 mg 00 daily. Medical per tablet Branch valsartan-h Yes [id number] 1{tbl} Take 1 Univers ydrochlorot 1-13 tablet by ity of hiazide 00:00: mouth [place] 320-25 mg 00 daily. Medical per tablet Branch valsartan-h Yes [id number] 1{tbl} Take 1 Univers ydrochlorot 1-13 tablet by ity of hiazide 00:00: mouth [place] 320-25 mg 00 daily. Medical per tablet Branch valsartan-h Yes [id number] 1{tbl} Take 1 Univers ydrochlorot 1-13 tablet by ity of hiazide 00:00: mouth [place] 320-25 mg 00 daily. Medical per tablet Branch valsartan-h Yes [id number] 1{tbl} Take 1 Univers ydrochlorot 1-13 tablet by ity of hiazide 00:00: mouth [place] 320-25 mg 00 daily. Medical per tablet Branch valsartan-h 2022- No [id number] 1{tbl} Take 1 Univers ydrochlorot 1-13 -03 tablet by it y of hiazide 00:00: 00:00 mouth [place] 320-25 mg 00 :00 daily. Medical per tablet Branch MELOXICAM 2020-10 Yes TAKE 1 U nivers 15 mg 1-01 TABLET BY ity of tablet 00:00: MOUTH [place] 00 EVERY DAY Medical Branch MELOXICAM 2020-10 Yes [id number] TAKE 1 U nivers 15 mg 1-01 TABLET BY ity of tablet 00:00: MOUTH [place] 00 EVERY DAY Medical Branch MELOXICAM 2020-10 Yes [id number] TAKE 1 U nivers 15 mg 1-01 TABLET BY ity of tablet 00:00: MOUTH [place] 00 EVERY DAY Medical Branch MELOXICAM 2020-10 Yes [id number] TAKE 1 U nivers 15 mg 1-01 TABLET BY ity of tablet 00:00: MOUTH [place] 00 EVERY DAY Medical Branch MELOXICAM 2020-10 Yes [id number] TAKE 1 U nivers 15 mg 1-01 TABLET BY ity of tablet 00:00: MOUTH [place] 00 EVERY DAY Medical Branch MELOXICAM 2020-10 Yes TAKE 1 U nivers 15 mg 1-01 TABLET BY ity of tablet 00:00: MOUTH [place] 00 EVERY DAY Medical Branch MELOXICAM 2020-10 Yes TAKE 1 U nivers 15 mg 1-01 TABLET BY ity of tablet 00:00: MOUTH [place] 00 EVERY DAY Medical Branch MELOXICAM 2020-10 Yes TAKE 1 U nivers 15 mg 1-01 TABLET BY ity of tablet 00:00: MOUTH [place] 00 EVERY DAY Medical Branch MELOXICAM 2020-10 Yes TAKE 1 U nivers 15 mg 1-01 TABLET BY ity of tablet 00:00: MOUTH [place] 00 EVERY DAY Medical Branch MELOXICAM 2020-10 Yes TAKE 1 U nivers 15 mg 1-01 TABLET BY ity of tablet 00:00: MOUTH [place] 00 EVERY DAY Medical Branch MELOXICAM 2020-10 Yes TAKE 1 U nivers 15 mg 1-01 TABLET BY ity of tablet 00:00: MOUTH [place] 00 EVERY DAY Medical Branch MELOXICAM 2020-10 Yes TAKE 1 U nivers 15 mg 1-01 TABLET BY ity of tablet 00:00: MOUTH [place] 00 EVERY DAY Medical Branch MELOXICAM 2020-10 Yes TAKE 1 U nivers 15 mg 1-01 TABLET BY ity of tablet 00:00: MOUTH [place] 00 EVERY DAY Medical Branch MELOXICAM 2020-103- No TAKE 1 Univers 15 mg 1-01 -23 TABLET BY ity of tablet 00:00: 00:00 MOUTH [place] 00 :00 EVERY DAY Medical Branch CITALOPRAM 2020-0 Yes [id number] TAKE 1 U nivers 20 mg 8-10 TABLET BY ity of tablet 00:00: MOUTH [place] 00 EVERY DAY Medical Branch CITALOPRAM 2020-0 Yes [id number] TAKE 1 U nivers 20 mg 8-10 TABLET BY ity of tablet 00:00: MOUTH [place] 00 EVERY DAY Medical Branch CITALOPRAM 2020-0 Yes [id number] TAKE 1 U nivers 20 mg 8-10 TABLET BY ity of tablet 00:00: MOUTH [place] 00 EVERY DAY Medical Branch CITALOPRAM 2020-0 Yes [id number] TAKE 1 U nivers 20 mg 8-10 TABLET BY ity of tablet 00:00: MOUTH [place] 00 EVERY DAY Medical Branch CITALOPRAM 2020-0 Yes [id number] TAKE 1 U nivers 20 mg 8-10 TABLET BY ity of tablet 00:00: MOUTH [place] 00 EVERY DAY Medical Branch CITALOPRAM 0 Yes [id number] TAKE 1 U nivers 20 mg 8-10 TABLET BY ity of tablet 00:00: MOUTH [place] 00 EVERY DAY Medical Branch CITALOPRAM 0 2- No [id number] TAKE 1 Univers 20 mg 8-10 10-26 TABLET BY ity of tablet 00:00: 00:00 MOUTH [place] 00 :00 EVERY DAY Medical Branch budesonide- Yes 2{puff} Inhale 2 Univers formoteroL 2-03 Puffs 2 ity of 160-4.5 13:41: (two) [place] mcg/actuati 54 times Medical on inhaler daily. [place] budesonide- Yes 2{puff} Inhale 2 Univers formoteroL 2-03 Puffs 2 ity of 160-4.5 13:41: (two) [place] mcg/actuati 54 times Medical on inhaler daily. [place] budesonide- Yes 2{puff} Inhale 2 Univers formoteroL 2-03 Puffs 2 ity of 160-4.5 13:41: (two) [place] mcg/actuati 54 times Medical on inhaler daily. [place] budesonide- Yes 2{puff} Inhale 2 Univers formoteroL 2-03 Puffs 2 ity of 160-4.5 13:41: (two) [place] mcg/actuati 54 times Medical on inhaler daily. [place] budesonide- Yes 2{puff} Inhale 2 Univers formoteroL 2-03 Puffs 2 ity of 160-4.5 13:41: (two) [place] mcg/actuati 54 times Medical on inhaler daily. [place] budesonide- 0 Yes 2{puff} Inhale 2 Univers formoteroL 2-03 Puffs 2 ity of 160-4.5 13:41: (two) [place] mcg/actuati 54 times Medical on inhaler daily. [place] budesonide- 0 Yes 2{puff} Inhale 2 Univers formoteroL 2-03 Puffs 2 ity of 160-4.5 13:41: (two) [place] mcg/actuati 54 times Medical on inhaler daily. [place] budesonide- 2021-0 Yes 2{puff} Inhale 2 Univers formoteroL 2-03 [...] times Medical on inhaler daily. Branch GLUC/SABINA-M 2020-0 Yes Take by Uni vers SM#1/C/JAY 2-03 mouth. ity of /ARIN/BOR 13:40: [place] (OSTEO 31 Medical BI-FLEX Branch TRIPLE STRENGTH ORAL) GLUC/SABINA-M 2020-0 Yes Take by Uni vers SM#1/C/JAY 2-03 mouth. ity of /ARIN/BOR 13:40: [place] (OSTEO 31 Medical BI-FLEX Branch TRIPLE STRENGTH ORAL) GLUC/SABINA-M 2020-0 Yes Take by Uni vers SM#1/C/JAY 2-03 mouth. ity of /ARIN/BOR 13:40: [place] (OSTEO 31 Medical BI-FLEX Branch TRIPLE STRENGTH ORAL) GLUC/SABINA-M 2020-0 Yes Take by Uni vers SM#1/C/JAY 2-03 mouth. ity of /ARIN/BOR 13:40: [place] (OSTEO 31 Medical BI-FLEX Branch TRIPLE STRENGTH ORAL) GLUC/SABINA-M 2020-0 Yes Take by Uni vers SM#1/C/JAY 2-03 mouth. ity of /ARIN/BOR 13:40: [place] (OSTEO 31 Medical BI-FLEX Branch TRIPLE STRENGTH ORAL) GLUC/SABINA-M 2020-0 Yes Take by Uni vers SM#1/C/JAY 2-03 mouth. ity of /ARIN/BOR 13:40: [place] (OSTEO 31 Medical BI-FLEX Branch TRIPLE STRENGTH ORAL) GLUC/SABINA-M 2020-0 Yes Take by Uni vers SM#1/C/JAY 2-03 mouth. ity of /ARIN/BOR 13:40: [place] (OSTEO 31 Medical BI-FLEX Branch TRIPLE STRENGTH ORAL) GLUC/SABINA-M 2020-0 Yes Take by Uni vers SM#1/C/JAY 2-03 mouth. ity of /ARIN/BOR 13:40: [place] (OSTEO 31 Medical BI-FLEX Branch TRIPLE STRENGTH ORAL) GLUC/SABINA-M 2020-0 Yes Take by Uni vers SM#1/C/JAY 2-03 mouth. ity of /ARIN/BOR 13:40: [place] (OSTEO 31 Medical BI-FLEX Branch TRIPLE STRENGTH ORAL) GLUC/SABINA-M 2020-0 Yes Take by Uni vers SM#1/C/JAY 2-03 mouth. ity of /ARIN/BOR 13:40: [place] (OSTEO 31 Medical BI-FLEX Branch TRIPLE STRENGTH ORAL) GLUC/SABINA-M 2020-0 Yes Take by Uni vers SM#1/C/JAY 2-03 mouth. ity of /ARIN/BOR 13:40: [place] (OSTEO 31 Medical BI-FLEX Branch TRIPLE STRENGTH ORAL) GLUC/SABINA-M 2020-0 Yes Take by Uni vers SM#1/C/JAY 2-03 mouth. ity of /ARIN/BOR 13:40: [place] (OSTEO 31 Medical BI-FLEX Branch TRIPLE STRENGTH ORAL) GLUC/SABINA-M 2020-0 Yes Take by Uni vers SM#1/C/JAY 2-03 mouth. ity of /ARIN/BOR 13:40: [place] (OSTEO 31 Medical BI-FLEX Branch TRIPLE STRENGTH ORAL) GLUC/SABINA-M 2020-0 Yes Take by Uni vers SM#1/C/JAY 2-03 mouth. ity of /ARIN/BOR 13:40: [place] (OSTEO 31 Medical BI-FLEX Branch TRIPLE STRENGTH ORAL) GLUC/SABINA-M 2020-0 Yes Take by Uni vers SM#1/C/JAY 2-03 mouth. ity of /ARIN/BOR 13:40: [place] (OSTEO 31 Medical BI-FLEX Branch TRIPLE STRENGTH ORAL) GLUC/SABINA-M 2020-0 Yes Take by Uni vers SM#1/C/JAY 2-03 mouth. ity of /ARIN/BOR 13:40: [place] (OSTEO 31 Medical BI-FLEX Branch TRIPLE STRENGTH ORAL) GLUC/SABINA-M 2020-0 Yes Take by Uni vers SM#1/C/JAY 2-03 mouth. ity of /ARIN/BOR 13:40: [place] (OSTEO 31 Medical BI-FLEX Branch TRIPLE STRENGTH ORAL) GLUC/SABINA-M 0 Yes Take by Uni vers SM#1/C/JAY 2-03 mouth. ity of /ARIN/BOR 13:40: [place] (OSTEO 31 Medical BI-FLEX Branch TRIPLE STRENGTH ORAL) GLUC/SABINA-M 2020-0 Yes Take by Uni vers SM#1/C/JAY 2-03 mouth. ity of /ARIN/BOR 13:40: [place] (OSTEO 31 Medical BI-FLEX Branch TRIPLE STRENGTH ORAL) GLUC/SABINA-M 0 Yes Take by Uni vers SM#1/C/JAY 2-03 mouth. ity of /ARIN/BOR 13:40: [place] (OSTEO 31 Medical BI-FLEX Branch TRIPLE STRENGTH ORAL) GLUC/SABINA-M 0 Yes Take by Uni vers SM#1/C/JAY 2-03 mouth. ity of /ARIN/BOR 13:40: [place] (OSTEO 31 Medical BI-FLEX Branch TRIPLE STRENGTH ORAL) budesonide- 2020-0 Yes Univer s formoteroL 4-06 ity of (SYMBICORT) 00:00: [place] 160-4.5 00 Medical mcg/actuati Branch on inhaler budesonide- 2020-0 Yes Univer s formoteroL 4-06 ity of (SYMBICORT) 00:00: [place] 160-4.5 00 Medical mcg/actuati Branch on inhaler budesonide- 2020-0 Yes Univer s formoteroL 4-06 ity of (SYMBICORT) 00:00: [place] 160-4.5 00 Medical mcg/actuati Branch on inhaler budesonide- 2020-0 Yes Univer s formoteroL 4-06 ity of (SYMBICORT) 00:00: [place] 160-4.5 00 Medical mcg/actuati Branch on inhaler budesonide- 2020-0 Yes Univer s formoteroL 4-06 ity of (SYMBICORT) 00:00: [place] 160-4.5 00 Medical mcg/actuati Branch on inhaler budesonide- 2020-0 Yes Univer s formoteroL 4-06 ity of (SYMBICORT) 00:00: [place] 160-4.5 00 Medical mcg/actuati Branch on inhaler budesonide- 2020-0 Yes Univer s formoteroL 4-06 ity of (SYMBICORT) 00:00: [place] 160-4.5 00 Medical mcg/actuati Branch on inhaler budesonide- 2020-0 Yes Univer s formoteroL 4-06 ity of (SYMBICORT) 00:00: [place] 160-4.5 00 Medical mcg/actuati Branch on inhaler budesonide- 2020-0 Yes Univer s formoteroL 4-06 ity of (SYMBICORT) 00:00: [place] 160-4.5 00 Medical mcg/actuati Branch on inhaler budesonide- 2020-0 Yes Univer s formoteroL 4-06 ity of (SYMBICORT) 00:00: [place] 160-4.5 00 Medical mcg/actuati Branch on inhaler budesonide- 2020-0 Yes Univer s formoteroL 4-06 ity of (SYMBICORT) 00:00: [place] 160-4.5 00 Medical mcg/actuati Branch on inhaler budesonide- 2020-0 Yes Univer s formoteroL 4-06 ity of (SYMBICORT) 00:00: [place] 160-4.5 00 Medical mcg/actuati Branch on inhaler budesonide- 2020-0 Yes Univer s formoteroL 4-06 ity of (SYMBICORT) 00:00: [place] 160-4.5 00 Medical mcg/actuati Branch on inhaler budesonide- 2020-0 Yes Univer s formoteroL 4-06 ity of (SYMBICORT) 00:00: [place] 160-4.5 00 Medical mcg/actuati Branch on inhaler budesonide- 2020-0 Yes Univer s formoteroL 4-06 ity of (SYMBICORT) 00:00: [place] 160-4.5 00 Medical mcg/actuati Branch on inhaler budesonide- 2020-0 Yes Univer s formoteroL 4-06 ity of (SYMBICORT) 00:00: [place] 160-4.5 00 Medical mcg/actuati Branch on inhaler budesonide- 2020-0 Yes Univer s formoteroL 4-06 ity of (SYMBICORT) 00:00: [place] 160-4.5 00 Medical mcg/actuati Branch on inhaler budesonide- 2020-0 Yes Univer s formoteroL 4-06 ity of (SYMBICORT) 00:00: [place] 160-4.5 00 Medical mcg/actuati Branch on inhaler budesonide- 2020-0 Yes Univer s formoteroL 4-06 ity of (SYMBICORT) 00:00: [place] 160-4.5 00 Medical mcg/actuati Branch on inhaler budesonide- 2020-0 Yes Univer s formoteroL 4-06 ity of (SYMBICORT) 00:00: [place] 160-4.5 00 Medical mcg/actuati Branch on inhaler budesonide- 2020-0 Yes Univer s formoteroL 4-06 ity of (SYMBICORT) 00:00: [place] 160-4.5 00 Medical mcg/actuati Branch on inhaler AMLODIPINE 2019-0 Yes [id number] TAKE 1 U nivers 5 mg tablet 7-05 TABLET BY ity of 00:00: MOUTH [place] 00 EVERY DAY Medical Branch AMLODIPINE 2019-0 Yes [id number] TAKE 1 U nivers 5 mg tablet 7-05 TABLET BY ity of 00:00: MOUTH [place] 00 EVERY DAY Medical Branch AMLODIPINE 2019-0 Yes [id number] TAKE 1 U nivers 5 mg tablet 7-05 TABLET BY ity of 00:00: MOUTH [place] 00 EVERY DAY Medical Branch AMLODIPINE 2019-0 Yes [id number] TAKE 1 U nivers 5 mg tablet 7-05 TABLET BY ity of 00:00: MOUTH [place] 00 EVERY DAY Medical Branch AMLODIPINE 2019-0 Yes [id number] TAKE 1 U nivers 5 mg tablet 7-05 TABLET BY ity of 00:00: MOUTH [place] 00 EVERY DAY Medical Branch AMLODIPINE 2019-0 Yes [id number] TAKE 1 U nivers 5 mg tablet 7-05 TABLET BY ity of 00:00: MOUTH [place] 00 EVERY DAY Medical Branch AMLODIPINE 2019-0 Yes [id number] TAKE 1 U nivers 5 mg tablet 7-05 TABLET BY ity of 00:00: MOUTH [place] 00 EVERY DAY Medical Branch AMLODIPINE 2019-0 Yes [id number] TAKE 1 U nivers 5 mg tablet 7-05 TABLET BY ity of 00:00: MOUTH [place] 00 EVERY DAY Medical Branch AMLODIPINE 2019-0 Yes [id number] TAKE 1 U nivers 5 mg tablet 7-05 TABLET BY ity of 00:00: MOUTH [place] 00 EVERY DAY Medical Branch AMLODIPINE 2019-0 Yes [id number] TAKE 1 U nivers 5 mg tablet 7-05 TABLET BY ity of 00:00: MOUTH [place] 00 EVERY DAY Medical Branch AMLODIPINE 2019-0 Yes [id number] TAKE 1 U nivers 5 mg tablet 7-05 TABLET BY ity of 00:00: MOUTH [place] 00 EVERY DAY Medical Branch AMLODIPINE 2019-0 Yes [id number] TAKE 1 U nivers 5 mg tablet 7-05 TABLET BY ity of 00:00: MOUTH [place] 00 EVERY DAY Medical Branch AMLODIPINE 2019-0 Yes [id number] TAKE 1 U nivers 5 mg tablet 7-05 TABLET BY ity of 00:00: MOUTH [place] 00 EVERY DAY Medical Branch AMLODIPINE 2019-0 Yes [id number] TAKE 1 U nivers 5 mg tablet 7-05 TABLET BY ity of 00:00: MOUTH [place] 00 EVERY DAY Medical Branch AMLODIPINE 2019-0 Yes [id number] TAKE 1 U nivers 5 mg tablet 7-05 TABLET BY ity of 00:00: MOUTH [place] 00 EVERY DAY Medical Branch AMLODIPINE 2019-0 Yes [id number] TAKE 1 U nivers 5 mg tablet 7-05 TABLET BY ity of 00:00: MOUTH [place] 00 EVERY DAY Medical Branch AMLODIPINE 2019-0 Yes [id number] TAKE 1 U nivers 5 mg tablet 7-05 TABLET BY ity of 00:00: MOUTH [place] 00 EVERY DAY Medical Branch AMLODIPINE 2019-0 Yes [id number] TAKE 1 U nivers 5 mg tablet 7-05 TABLET BY ity of 00:00: MOUTH [place] 00 EVERY DAY Medical Branch AMLODIPINE 2019-0 Yes [id number] TAKE 1 U nivers 5 mg tablet 7-05 TABLET BY ity of 00:00: MOUTH [place] 00 EVERY DAY Medical Branch AMLODIPINE 2019-0 Yes [id number] TAKE 1 U nivers 5 mg tablet 7-05 TABLET BY ity of 00:00: MOUTH [place] 00 EVERY DAY Medical Branch AMLODIPINE Yes [id number] TAKE 1 U nivers 5 mg tablet 7-05 TABLET BY ity of 00:00: MOUTH [place] 00 EVERY DAY Medical Branch guaiFENesin Yes 200mg Q.[id number] Take 200 [facility] (ROBITUSSIN 2-15 [id number] mg by s t ) 100 mg/5 13:11: 3D mouth 3 [facility]osp cos[facility] mL syrup 49 (three) l times a day as needed for cough. fluticasone Yes 2{spray QD 2 sprays [facility] (FLONASE) 2-15 } by Each [facility] 50 13:11: Nare route [facility]osp[facility] mcg/actuati 49 daily. l on nasal spray vit B comp Yes 1{tbl} QD Take 1 Met hodi no.3-folic- 2-15 tablet by C-biotin 13:11: mouth [facility]ospita (NEPHRO-VIT 49 daily. l E RX) 1-60-300 mg-mg-mcg tablet multivitami Yes 15mL QD Take 15 mL [facility] ns & 2-15 by mouth minerals-fe 13:11: daily. Hosp cosme rrous 49 l gluconate 9 mg iron/15 mL liquid calcium Yes 1{tbl} Q.5D Take 1 [facility] carbonate-v 2-15 tablet by itamin D3 13:11: mouth 2 Hospi ta 500 mg-200 49 (two) l unit per times a tablet day with meals. guaiFENesin Yes 200mg Q.[id number] Take 200 [facility] (ROBITUSSIN 2-15 [id number] mg by s t ) 100 mg/5 13:11: 3D mouth 3 [facility] mL syrup 49 (three) l times a day as needed for cough. fluticasone Yes 2{spray QD 2 sprays [facility] (FLONASE) 2-15 } by Each [facility] 50 13:11: Nare route [facility]osp[facility] mcg/actuati 49 daily. l on nasal spray vit B comp Yes 1{tbl} QD Take 1 [facility] no.3-folic- 2-[address] C-biotin 13:11: mouth [facility]ospita (NEPHRO-VIT 49 daily. l E RX) 1-60-300 mg-mg-mcg tablet multivitami 0 Yes 15mL QD Take 15 mL [facility] ns & 2-15 by mouth minerals-fe 13:11: daily. Hosp cosme rrous 49 l gluconate 9 mg iron/15 mL liquid calcium Yes 1{tbl} Q.5D Take 1 [facility] carbonate-v 2-15 tablet by itamin D3 13:11: mouth 2 Hospi ta 500 mg-200 49 (two) l unit per times a tablet day with meals. guaiFENesin Yes 200mg Q.[id number] Take 200 [facility] (ROBITUSSIN 2-15 [id number] mg by s t ) 100 mg/5 13:11: 3D mouth 3 [facility]osp cos[facility] mL syrup 49 (three) l times a day as needed for cough. fluticasone Yes 2{spray QD 2 sprays [facility] (FLONASE) 2-15 } by Each [facility] 50 13:11: Nare route [facility]ospita mcg/actuati 49 daily. l on nasal spray vit B comp Yes 1{tbl} QD Take 1 [facility]odi no.3-folic- 2-15 tablet by C-biotin 13:11: mouth Hospita (NEPHRO-VIT 49 daily. l E RX) 1-60-300 mg-mg-mcg tablet multivitami Yes 15mL QD Take 15 mL [facility] ns & 2-15 by mouth minerals-fe 13:11: daily. Hosp cosme rrous 49 l gluconate 9 mg iron/15 mL liquid calcium Yes 1{tbl} Q.5D Take 1 [facility] carbonate-v 2-15 tablet by itamin D3 13:11: mouth 2 Hospi ta 500 mg-200 49 (two) l unit per times a tablet day with meals. budesonide- Yes 2{puff} Q.5D Inhale 2 [facility] formoterol 2-[address] (SYMBICORT) 00:00: (two) Hospi ta 160-4.5 00 times a l mcg/actuati day. on inhaler budesonide- Yes 2{puff} Q.5D Inhale 2 [facility] formoterol 2-[address] (SYMBICORT) 00:00: (two) Hospi ta 160-4.5 00 times a l mcg/actuati day. on inhaler budesonide- Yes 2{puff} Q.5D Inhale 2 [facility] formoterol 2-[address] (SYMBICORT) 00:00: (two) Hospi ta 160-4.5 00 times a l mcg/actuati day. on inhaler montelukast Yes 10mg QD Take 10 mg [facility] (SINGULAIR) 1-[address] 10 mg 00:00: daily. [facility]ospita tablet 00 l montelukast Yes 10mg QD Take 10 mg [facility] (SINGULAIR) 1-[address] 10 mg 00:00: daily. [facility]osp[facility] tablet 00 l montelukast Yes 10mg QD Take 10 mg [facility] (SINGULAIR) 1-[address] 10 mg 00:00: daily. [facility]ospita tablet 00 l PROAIR HFA Yes 90ug Q4H Inhale 90 [facility] 90 1-[address] mcg/actuati 00:00: 4 (four) [facility] on inhaler 00 hours as l needed. amLODIPine Yes 5mg QD Take 5 mg [facility] (NORVASC) 5 1-[address] mg tablet 00:00: daily. Hospit a 00 l atorvastati Yes 10mg QD Take 10 mg [facility] (LIPITOR) 1-[address] 10 MG 00:00: nightly. Hospita tablet 00 l PROAIR HFA Yes 90ug Q4H Inhale 90 [facility] 90 1-[address] mcg/actuati 00:00: 4 (four) [facility] on inhaler 00 hours as l needed. amLODIPine Yes 5mg QD Take 5 mg [facility] (NORVASC) 5 1-[address] mg tablet 00:00: daily. Hospit a 00 l atorvastati Yes 10mg QD Take 10 mg [facility] (LIPITOR) 1-[address] 10 MG 00:00: nightly. Hospita tablet 00 l PROAIR HFA Yes 90ug Q4H Inhale 90 [facility] 90 1-[address] mcg/actuati 00:00: 4 (four) [facility] on inhaler 00 hours as l needed. amLODIPine Yes 5mg QD Take 5 mg [facility] (NORVASC) 5 1-[address] mg tablet 00:00: daily. Hospit a 00 l atorvastati Yes 10mg QD Take 10 mg [facility] (LIPITOR) 1-[address] 10 MG 00:00: nightly. Hospita tablet 00 l albuterol 2017-10 Yes 2{puff} Inhale 2 U [...] needed for Wheezing or Shortness of Breath. citalopram Yes 20mg QD Take 20 mg [facility] (CeleXA) 20 5-[address] MG tablet 00:00: daily. Hospit a 00 l meloxicam Yes 15mg QD Take 15 mg [facility] (MOBIC) 15 5-[address] mg tablet 00:00: daily. Hospit a 00 l valsartan-h Yes 1{tbl} QD Take 1 [facility] ydrochlorot 5-[address] hiazide 00:00: mouth [facility]ospita (DIOVAN-HCT 00 daily. l ) 320-12.5 mg per tablet citalopram 0 Yes 20mg QD Take 20 mg [facility] (CeleXA) 20 5-[address] MG tablet 00:00: daily. Hospit a 00 l meloxicam 0 Yes 15mg QD Take 15 mg [facility] (MOBIC) 15 5-[address] mg tablet 00:00: daily. Hospit a 00 l valsartan-h Yes 1{tbl} QD Take 1 [facility] ydrochlorot 5-[address] hiazide 00:00: mouth Hospita (DIOVAN-HCT 00 daily. l ) 320-12.5 mg per tablet citalopram 0 Yes 20mg QD Take 20 mg [facility] (CeleXA) 20 5-[address] MG tablet 00:00: daily. Hospit a 00 l meloxicam Yes 15mg QD Take 15 mg [facility] (MOBIC) 15 5-[address] mg tablet 00:00: daily. Hospit a 00 l valsartan-h Yes 1{tbl} QD Take 1 [facility] ydrochlorot 5-[address] hiazide 00:00: mouth Hospita (DIOVAN-HCT 00 daily. l ) 320-12.5 mg per tablet Immunizations Ordered Filled Immunization Date Status Comments [facility] Immunization Name Name SARS-COV-2 COVID-19 2020-12-05 Completed Unive rsity of MODERNA 12+ YRS 00:00:00 [place] [facility] VACCINE Branch SARS-COV-2 COVID-19 2020-12-05 Completed Unive rsity of MODERNA 12+ YRS 00:00:00 [place] [facility] VACCINE Branch SARS-COV-2 COVID-19 2020-12-05 Completed Unive rsity of MODERNA 12+ YRS 00:00:00 [place] [facility] VACCINE Branch SARS-COV-2 COVID-19 2020-12-05 Completed Unive rsity of MODERNA 12+ YRS 00:00:00 [place] [facility] ical VACCINE Branch SARS-COV-2 COVID-19 2020-12-05 Completed Unive rsity of MODERNA 12+ YRS 00:00:00 [facility] ical VACCINE Branch SARS-COV-2 COVID-19 2020-12-05 Completed Unive rsity of MODERNA 12+ YRS 00:00:00 [place] [facility] ical VACCINE Branch SARS-COV-2 COVID-19 2020-12-05 Completed Unive rsity of MODERNA 12+ YRS 00:00:00 [place] [facility] ical VACCINE Branch SARS-COV-2 COVID-19 2020-12-05 Completed Unive rsity of MODERNA 12+ YRS 00:00:00 [place] [facility] VACCINE Branch SARS-COV-2 COVID-19 2020-12-05 Completed Unive rsity of MODERNA 12+ YRS 00:00:00 [place] [facility] ical VACCINE Branch SARS-COV-2 COVID-19 2020-12-05 Completed Unive rsity of MODERNA 12+ YRS 00:00:00 [place] [facility] VACCINE Branch SARS-COV-2 COVID-19 2020-12-05 Completed Unive rsity of MODERNA 12+ YRS 00:00:00 [place] [facility] ical VACCINE Branch SARS-COV-2 COVID-19 2020-12-05 Completed Unive rsity of MODERNA VACCINE 00:00:00 [place] [facility] Branch SARS-COV-2 COVID-19 2020-12-05 Completed Unive rsity of MODERNA VACCINE 00:00:00 [place] [facility] Branch SARS-COV-2 COVID-19 2020-12-05 Completed Unive rsity of MODERNA VACCINE 00:00:00 [place] [facility] SARS-COV-2 COVID-19 2020-12-05 Completed Unive rsity of MODERNA VACCINE 00:00:00 [place] [facility] Branch SARS-COV-2 COVID-19 2020-12-05 Completed Unive rsity of MODERNA VACCINE 00:00:00 [place] [facility] Branch SARS-COV-2 COVID-19 2020-12-05 Completed Unive rsity of MODERNA 12+ YRS 00:00:00 [place] [facility] ical VACCINE Branch SARS-COV-2 COVID-19 2020-12-05 Completed Unive rsity of MODERNA 12+ YRS 00:00:00 [place] [facility] ical VACCINE Branch SARS-COV-2 COVID-19 2020-12-05 Completed Unive rsity of MODERNA 12+ YRS 00:00:00 [place] [facility] ical VACCINE Branch SARS-COV-2 COVID-19 2020-12-05 Completed Unive rsity of MODERNA 12+ YRS 00:00:00 [place] [facility] ical VACCINE Branch SARS-COV-2 COVID-19 2020-12-05 Completed Unive rsity of MODERNA 12+ YRS 00:00:00 [place] [facility] ical VACCINE Branch SARS-COV-2 COVID-19 2020-10-27 Completed Unive rsity of MODERNA 12+ YRS 00:00:00 [place] [facility] ical VACCINE Branch SARS-COV-2 COVID-19 2020-10-27 Completed Unive rsity of MODERNA 12+ YRS 00:00:00 [place] [facility] ical VACCINE Branch SARS-COV-2 COVID-19 2020-10-27 Completed Unive rsity of MODERNA 12+ YRS 00:00:00 [place] [facility] ical VACCINE Branch SARS-COV-2 COVID-19 2020-10-27 Completed Unive rsity of MODERNA 12+ YRS 00:00:00 [place] [facility] ical VACCINE Branch SARS-COV-2 COVID-19 2020-10-27 Completed Unive rsity of MODERNA 12+ YRS 00:00:00 [place] [facility] ical VACCINE Branch SARS-COV-2 COVID-19 2020-10-27 Completed Unive rsity of MODERNA 12+ YRS 00:00:00 [place] [facility] ical VACCINE Branch SARS-COV-2 COVID-19 2020-10-27 Completed Unive rsity of MODERNA 12+ YRS 00:00:00 [place] [facility] ical VACCINE Branch SARS-COV-2 COVID-19 2020-10-27 Completed Unive rsity of MODERNA 12+ YRS 00:00:00 [place] [facility] ical VACCINE Branch SARS-COV-2 COVID-19 2020-10-27 Completed Unive rsity of MODERNA 12+ YRS 00:00:00 [place] [facility] ical VACCINE Branch SARS-COV-2 COVID-19 2020-10-27 Completed Unive rsity of MODERNA 12+ YRS 00:00:00 [place] [facility] ical VACCINE Branch SARS-COV-2 COVID-19 2020-10-27 Completed Unive rsity of MODERNA 12+ YRS 00:00:00 [place] [facility] ical VACCINE Branch SARS-COV-2 COVID-19 2020-10-27 Completed Unive rsity of MODERNA VACCINE 00:00:00 [place] [facility] Branch SARS-COV-2 COVID-19 2020-10-27 Completed Unive rsity of MODERNA VACCINE 00:00:00 [place] [facility] ical Branch SARS-COV-2 COVID-19 2020-10-27 Completed Unive rsity of MODERNA VACCINE 00:00:00 [place] [facility] ical Branch SARS-COV-2 COVID-19 2020-10-27 Completed Unive rsity of MODERNA VACCINE 00:00:00 [facility] ical Branch SARS-COV-2 COVID-19 2020-10-27 Completed Unive rsity of MODERNA VACCINE 00:00:00 [facility] ical Branch SARS-COV-2 COVID-19 2020-10-27 Completed Unive rsity of MODERNA 12+ YRS 00:00:00 [facility] ical VACCINE Branch SARS-COV-2 COVID-19 2020-10-27 Completed Unive rsity of MODERNA 12+ YRS 00:00:00 [facility] ical VACCINE Branch SARS-COV-2 COVID-19 2020-10-27 Completed Unive rsity of MODERNA 12+ YRS 00:00:00 [facility] ical VACCINE Branch SARS-COV-2 COVID-19 2020-10-27 Completed Unive rsity of MODERNA 12+ YRS 00:00:00 [facility] ical VACCINE Branch SARS-COV-2 COVID-19 2020-10-27 Completed Unive rsity of MODERNA 12+ YRS 00:00:00 [facility] VACCINE Branch Influenza High Dose 2020-07-20 Completed Unive rsity of [place] 00:00:00 [facility] Influenza High Dose 2020-07-20 Completed Unive rsity of [place] 00:00:00 [place] [facility] Influenza High Dose 2020-07-20 Completed Unive rsity of [place] 00:00:00 [place] [facility] Influenza High Dose 2020-07-20 Completed Unive rsity of [place] 00:00:00 [place] [facility] Influenza High Dose 2020-07-20 Completed Unive rsity of [place] 00:00:00 [place] [facility] Influenza High Dose 2020-07-20 Completed Unive rsity of [place] 00:00:00 [place] [facility] Influenza High Dose 2020-07-20 Completed Unive rsity of [place] 00:00:00 [place] [facility] Influenza High Dose 2020-07-20 Completed Unive rsity of [place] 00:00:00 [facility] Influenza High Dose 2020-07-20 Completed Unive rsity of [place] 00:00:00 [facility] Influenza High Dose 2020-07-20 Completed Unive rsity of [place] 00:00:00 [facility] Influenza High Dose 2020-07-20 Completed Unive rsity of [place] 00:00:00 [facility] Influenza High Dose 2020-07-20 Completed Unive rsity of [place] 00:00:00 [facility] Influenza High Dose 2020-07-20 Completed Unive rsity of [place] 00:00:00 [facility] Influenza High Dose 2020-07-20 Completed Unive rsity of [place] 00:00:00 [facility] Influenza High Dose 2020-07-20 Completed Unive rsity of [place] 00:00:00 [facility] Influenza High Dose 2020-07-20 Completed Unive rsity of [place] 00:00:00 [facility] Influenza High Dose 2020-07-20 Completed Unive rsity of [place] 00:00:00 [facility] Influenza High Dose 2020-07-20 Completed Unive rsity of [place] 00:00:00 [facility] Influenza High Dose 2020-07-20 Completed Unive rsity of [place] 00:00:00 [facility] Influenza High Dose 2020-07-20 Completed Unive rsity of [place] 00:00:00 [facility] Influenza High Dose 2020-07-20 Completed Unive rsity of [place] 00:00:00 [facility] Zoster Vaccine 2020-06-12 Completed University of Recombinant 00:00:00 [facility] Zoster Vaccine 2020-06-12 Completed University of Recombinant 00:00:00 [facility] Zoster Vaccine 2020-06-12 Completed University of Recombinant 00:00:00 [facility] Zoster Vaccine 2020-06-12 Completed University of Recombinant 00:00:00 [facility] Zoster Vaccine 2020-06-12 Completed University of Recombinant 00:00:00 [facility] Zoster Vaccine 2020-06-12 Completed University of Recombinant 00:00:00 [facility] Zoster Vaccine 2020-06-12 Completed University of Recombinant 00:00:00 [facility] Zoster Vaccine 2020-06-12 Completed University of Recombinant 00:00:00 [facility] Zoster Vaccine 2020-06-12 Completed University of Recombinant 00:00:00 [facility] Zoster Vaccine 2020-06-12 Completed University of Recombinant 00:00:00 [facility] Zoster Vaccine 2020-06-12 Completed University of Recombinant 00:00:00 [facility] Zoster Vaccine 2020-06-12 Completed University of Recombinant 00:00:00 [facility] Zoster Vaccine 2020-06-12 Completed University of Recombinant 00:00:00 [facility] Zoster Vaccine 2020-06-12 Completed University of Recombinant 00:00:00 [facility] Zoster Vaccine 2020-06-12 Completed University of Recombinant 00:00:00 [facility] Zoster Vaccine 2020-06-12 Completed University of Recombinant 00:00:00 [facility] Zoster Vaccine 2020-06-12 Completed University of Recombinant 00:00:00 [facility] Zoster Vaccine 2020-06-12 Completed University of Recombinant 00:00:00 [facility] Zoster Vaccine 2020-06-12 Completed University of Recombinant 00:00:00 [facility] Zoster Vaccine 2020-06-12 Completed University of Recombinant 00:00:00 [facility] Zoster Vaccine 2020-06-12 Completed University of Recombinant 00:00:00 [facility] Zoster Vaccine 2020-03-19 Completed University of Recombinant 00:00:00 [facility] Zoster Vaccine 2020-03-19 Completed University of Recombinant 00:00:00 [facility] Zoster Vaccine 2020-03-19 Completed University of Recombinant 00:00:00 [facility] Zoster Vaccine 2020-03-19 Completed University of Recombinant 00:00:00 [facility] Zoster Vaccine 2020-03-19 Completed University of Recombinant 00:00:00 [facility] Zoster Vaccine 2020-03-19 Completed University of Recombinant 00:00:00 [facility] Zoster Vaccine 2020-03-19 Completed University of Recombinant 00:00:00 [facility] Zoster Vaccine 2020-03-19 Completed University of Recombinant 00:00:00 [facility] Zoster Vaccine 2020-03-19 Completed University of Recombinant 00:00:00 [facility] Zoster Vaccine 2020-03-19 Completed University of Recombinant 00:00:00 [facility] Zoster Vaccine 2020-03-19 Completed [facility] of Recombinant 00:00:00 [facility] Zoster Vaccine 2020-03-19 Completed [facility] of Recombinant 00:00:00 [facility] Zoster Vaccine 2020-03-19 Completed University of Recombinant 00:00:00 [facility] Zoster Vaccine 2020-03-19 Completed University of Recombinant 00:00:00 [facility] Zoster Vaccine 2020-03-19 Completed University of Recombinant 00:00:00 [facility] Zoster Vaccine 2020-03-19 Completed University of Recombinant 00:00:00 [facility] Zoster Vaccine 2020-03-19 Completed University of Recombinant 00:00:00 [facility] Zoster Vaccine 2020-03-19 Completed University of Recombinant 00:00:00 [facility] Zoster Vaccine 2020-03-19 Completed University of Recombinant 00:00:00 [facility] Zoster Vaccine 2020-03-19 Completed University of Recombinant 00:00:00 [facility] Zoster Vaccine 2020-03-19 Completed University of Recombinant 00:00:00 [facility] Pneumococcal 13 2019-10-04 Completed Universit y of Conjugate, PCV13 00:00:00 [place] [facility] (Prevnar 13) Branch Pneumococcal 13 2019-10-04 Completed Universit y of Conjugate, PCV13 00:00:00 [place] [facility] (Prevnar 13) Branch Pneumococcal 13 2019-10-04 Completed Universit y of Conjugate, PCV13 00:00:00 [place] [facility] (Prevnar 13) Branch Pneumococcal 13 2019-10-04 Completed Universit y of Conjugate, PCV13 00:00:00 [place] [facility] (Prevnar 13) Branch Pneumococcal 13 2019-10-04 Completed Universit y of Conjugate, PCV13 00:00:00 [place] [facility] (Prevnar 13) Branch Pneumococcal 13 2019-10-04 Completed Universit y of Conjugate, PCV13 00:00:00 [place] [facility] (Prevnar 13) Branch Pneumococcal 13 2019-10-04 Completed Universit y of Conjugate, PCV13 00:00:00 [place] [facility] (Prevnar 13) Branch Pneumococcal 13 2019-10-04 Completed Universit y of Conjugate, PCV13 00:00:00 [place] [facility] (Prevnar 13) Branch Pneumococcal 13 2019-10-04 Completed Universit y of Conjugate, PCV13 00:00:00 [place] [facility] (Prevnar 13) Branch Pneumococcal 13 2019-10-04 Completed Universit y of Conjugate, PCV13 00:00:00 [place] [facility] (Prevnar 13) Branch Pneumococcal 13 2019-10-04 Completed Universit y of Conjugate, PCV13 00:00:00 [place] [facility] (Prevnar 13) Branch Pneumococcal 13 2019-10-04 Completed Universit y of Conjugate, PCV13 00:00:00 [place] [facility] (Prevnar 13) Branch Pneumococcal 13 [...] 00:00:00 [place] [facility] (Prevnar 13) Branch Influenza High Dose 2018-09-11 Completed Unive rsity of 00:00:00 [facility] Influenza High Dose 2018-09-11 Completed Unive rsity of 00:00:00 [facility] Influenza High Dose 2018-09-11 Completed Unive rsity of 00:00:00 [facility] Influenza High Dose 2018-09-11 Completed Unive rsity of 00:00:00 [facility] Influenza High Dose 2018-09-11 Completed Unive rsity of 00:00:00 [facility] Influenza High Dose 2018-09-11 Completed Unive rsity of 00:00:00 [facility] Influenza High Dose 2018-09-11 Completed Unive rsity of 00:00:00 [facility] Influenza High Dose 2018-09-11 Completed Unive rsity of 00:00:00 [facility] Influenza High Dose 2018-09-11 Completed Unive rsity of 00:00:00 [facility] Influenza High Dose 2018-09-11 Completed Unive rsity of 00:00:00 [facility] Influenza High Dose 2018-09-11 Completed Unive rsity of 00:00:00 [facility] Influenza High Dose 2018-09-11 Completed Unive rsity of 00:00:00 [facility] Influenza High Dose 2018-09-11 Completed Unive rsity of 00:00:00 [facility] Influenza High Dose 2018-09-11 Completed Unive rsity of 00:00:00 [facility] Influenza High Dose 2018-09-11 Completed Unive rsity of 00:00:00 [facility] Influenza High Dose 2018-09-11 Completed Unive rsity of 00:00:00 [facility] Influenza High Dose 2018-09-11 Completed Unive rsity of 00:00:00 [facility] Influenza High Dose 2018-09-11 Completed Unive rsity of 00:00:00 [facility] Influenza High Dose 2018-09-11 Completed Unive rsity of 00:00:00 [facility] Influenza High Dose 2018-09-11 Completed Unive rsity of 00:00:00 [facility] Influenza High Dose 2018-09-11 Completed Unive rsity of 00:00:00 [facility] Vital Signs Vital Name Observation Time Observation Value Comments Source Systolic blood 2022-09-08 20:28:00 145 mm[Hg] Univer sity of pressure [facility] Diastolic blood 2022-09-08 20:28:00 73 mm[Hg] Unive rsity of pressure [facility] Heart rate 2022-09-08 20:27:00 65 /min [facility] Body temperature 2022-09-08 20:27:00 37.44 [facility] Body height 2022-09-08 20:27:00 160 cm [facility] Body weight 2022-09-08 20:27:00 75.297 kg [facility] BMI 2022-09-08 20:27:00 29.41 kg/m2 [facility] Procedures Procedure Date / Time Performing Clinician Source Performed MEDICAL RELEASE/CLEARANCE 2023-01-28 05:01:00 Doctor Gabbie, [facility] FOR[facility] EXTERNAL MAMMOGRAM 2023-01-25 00:00:00 [facility] EXTERNAL PROVIDER RECORDS 2022-10-28 06:01:00 Doctor Unassigned, [facility] EXTERNAL PROVIDER RECORDS 2022-10-12 06:01:00 Doctor Unassigned, [facility] EXTERNAL PROVIDER RECORDS 2022-08-20 05:01:00 Doctor Gabbie, [facility] PATIENT FINANCIAL 2022-03-18 05:01:00 Doctor Leylassjose, [facility] RESPONSIBILITY - ALL [facility] FORMS PATIENT FINANCIAL 2022-02-18 05:01:00 Doctor Leylassjose, [facility] RESPONSIBILITY - ALL [facility] FORMS REFERRAL- 2021-12-24 06:01:00 Doctor Gabbie, [facility] REQUEST/RESPONSE [facility] Plan of Care Planned Activity Planned Date Details Comments Source Future Scheduled 2023-03-08 COVID-19 VACCINE (#1) [facility] Test 14:00:52 [code = COVID-19 VACCINE (#1)] Future Scheduled 2023-03-[address] [facility] Test 14:00:52 SCREENING [code = BREAST CANCER SCREENING] Future Scheduled 2023-03-08 COLONOSCOPY SCREENING [facility] Test 14:00:52 [code = COLONOSCOPY SCREENING] Future Scheduled 2023-03-08 SHINGLES VACCINES (1 Met [facility] Test 14:00:52 of 2) [code = SHINGLES VACCINES (1 of 2)] Future Scheduled 2023-03-08 65+ [facility] 14:[facility] VACCINE (1 - PCV) [code = 65+ PNEUMOCOCCAL VACCINE (1 - PCV)] Future Scheduled 2023-03-08 INFLUENZA VACCINE Method [facility] Test 14:00:52 [code = INFLUENZA VACCINE] Future Scheduled 2023-01-29 COVID-19 VACCINE (#1) [facility] Test 08:58:38 [code = COVID-19 VACCINE (#1)] Future Scheduled 2023-01-[address] [facility] Test 08:58:38 SCREENING [code = BREAST CANCER SCREENING] Future Scheduled 2023-01-29 COLONOSCOPY SCREENING [facility] Test 08:58:38 [code = COLONOSCOPY SCREENING] Future Scheduled 2023-01-29 SHINGLES VACCINES (1 Met [facility] Test 08:58:38 of 2) [code = SHINGLES VACCINES (1 of 2)] Future Scheduled 2023-01-29 65+ [facility]AL [facility] Test 08:58:38 VACCINE (1 - PCV) [code = 65+ PNEUMOCOCCAL VACCINE (1 - PCV)] Future Scheduled 2023-01-29 INFLUENZA VACCINE Method [facility] Test 08:58:38 [code = INFLUENZA VACCINE] Future Scheduled 2022-07-01 HEPATITIS B VACCINES Met [facility] Test 17:07:46 (1 of 3 - 3-dose series) [code = HEPATITIS B VACCINES (1 of 3 - 3-dose series)] Future Scheduled 2022-07-01 COVID-19 VACCINE (#1) [facility] Test 17:07:46 [code = COVID-19 VACCINE (#1)] Future Scheduled 2022-07-[address] [facility] Test 17:07:46 SCREENING [code = BREAST CANCER SCREENING] Future Scheduled 2022-07-01 COLONOSCOPY SCREENING [facility] Test 17:07:46 [code = COLONOSCOPY SCREENING] Future Scheduled 2022-07-01 SHINGLES VACCINES (1 Met [facility] Test 17:07:46 of 2) [code = SHINGLES VACCINES (1 of 2)] Future Scheduled 2022-07-01 65+ PNEUMOCOCCAL Methodi [facility] Test 17:07:46 VACCINE (1 - PCV) [code = 65+ PNEUMOCOCCAL VACCINE (1 - PCV)] Future Scheduled 2022-07-01 INFLUENZA VACCINE Method [facility] Test 17:07:46 [code = INFLUENZA VACCINE] Encounters Start End Encounter Admission Attending Care Care Encounter Source Date/Time Date/Time Type Type Clinicians Facility Department ID 2022-12-27 Outpatient Elsa [facility] [id number] Common 12:13:01 Yash [id number] [facility] 2022-10-29 Outpatient [facility] [id number] Common 09:44:02 Yash [facility] 2022-01-06 Outpatient [facility] [id number] Common 09:53:04 Yash [facility] 2019-12-04 Inpatient HCACL MARLEY [id number] [facility] 19:27:00 81 [facility] 2023-03-08 2023-03-08 Yuki Lopes [facility] 1.2.840.114 [id number] [facility] 00:00:00 00:00:00 Yash HEALTH 350.1.13.10 it y of [place] 4.2.7.2.686 Gen as [place]?BLEA [phone] [facility] [address] OFFICE [facility] 2023-03-07 2023-03-07 Telephone [facility] 1.2.840.114 [id number] Univers 00:00:00 00:00:00 [facility] 350.1.13.10 it y of [place] 4.2.7.2.686 Gen as [place]?BLEA [phone] [address] OFFICE [facility] 2023-03-07 2023-03-07 [facility] [id number] Univers 00:00:00 00:00:00 [facility] 350.1.13.10 it y of [place] 4.2.7.2.686 Gen as [place]?BLEA [phone] [address] 2023-03-02 2023-03-02 Telephone [facility] 1.2.840.114 [id number] Univers 00:00:00 00:00:00 [facility] 350.1.13.10 it y of [place] 4.2.7.2.686 Gen as [place]?BLEA [phone] [address] 2023-01-28 2023-01-28 Orders Doctor SATISH 1.2.840.114 [id number] Univers 00:00:00 00:00:00 Only Unassigned, CLARKE 350.1.13.10 ity of [place] [facility] 4.2.7.2.686 Gen as [phone] [address] 2023-01-27 2023-01-27 Telephone [facility] 1.2.840.114 [id number] Univers 00:00:00 00:00:00 [facility] 350.1.13.10 it y of [place] 4.2.7.2.686 Gen as [place]?BLEA [phone] [address] OFFICE [facility] 2023-01-25 2023-01-25 Outpatient [facility] [id number] [facility] 12:00:00 12:00:00 Yash Fawad [facility] 2023-01-09 2023-01-09 [facility] 1.2.840.114 [id number] Univers 00:00:00 00:00:00 Yash BEASLEYILAN 350.1.13.10 i ty of [place] [phone] [address] 2022-11-22 2022-11-22 [facility] 1.2.840.114 [id number] Univers 00:00:00 00:00:00 Yash HECK 350.1.13.10 i ty [facility] [place] [phone] [address] 2022-11-10 2022-11-10 [facility] [id number] Univers 11:00:00 11:00:00 YASH holm [facility] 2022-11-02 2022-11-02 [facility] 1.2.840.114 [id number] Univers 00:00:00 00:00:00 [facility] 350.1.13.10 it y of Russ HECK 4.2.7.2.686 Gen as [place]?BLEA [phone] [address] MEDICAL OFFICE BUILDING 2022-10-28 2022-10-28 Orders Doctor SATISH 1.2.840.114 [id number] Univers 00:00:00 00:00:00 Only Unassigned, CLARKE 350.1.13.10 ity of [facility] 4.2.7.2.686 Gen as [phone] [address] 2022-10-12 2022-10-12 Orders Doctor SATISH 1.2.840.114 [id number] Univers 00:00:00 00:00:00 Only Unassigned, CLARKE 350.1.13.10 ity of [facility] [facility] 4.2.7.2.686 Gen as [phone] [address] 2022-10-05 2022-10-05 [facility] 1.2.840.114 [id number] Univers 00:00:00 00:00:00 [facility] 350.1.13.10 it y of Eddevika HECK 4.2.7.2.686 Gen as [place]?BLEA [phone] [address] OFFICE [facility] 2022-09-08 2022-09-08 Office [facility] 1.2.840.114 [id number] Univers 14:30:00 15:00:00 Visit [facility] 350.1.13.10 it y of Eddevika HECK 4.2.7.2.686 Gen as [place]?BLEA [phone] [address] 2022-09-08 2022-09-08 Outpatient [facility] [id number] Univers 14:30:00 14:30:00 YASH ity of [facility] 2022-08-25 2022-08-25 Refill [facility] 1.2.840.114 [id number] Univers 00:00:00 00:00:00 Yash [place] 350.1.13.10 i ty of [place] [phone] [address] 2022-08-20 2022-08-20 Orders Doctor SATISH 1.2.840.114 [id number] Univers 00:00:00 00:00:00 Only Unassigned, CLAKRE 350.1.13.10 ity of [place] [facility] 4.2.7.2.686 Gen as [phone] [address] 2022-06-22 2022-06-22 Telephone [facility] 1.2.840.114 [id number] Univers 00:00:00 00:00:00 [facility] 350.1.13.10 it y of Russ [place] 4.2.7.2.686 Gen as [place]?BLEA [phone] [address] OFFICE [facility] 2022-03-18 2022-03-18 Outpatient R HAY [facility] [id number] Univers 13:45:00 15:35:01 YU ity o f [facility] 2022-03-18 2022-03-18 Orders Doctor SATISH 1.2.840.114 [id number] Univers 00:00:00 00:00:00 Only Unassigned, CLARKE 350.1.13.10 ity of [facility] 4.2.7.2.686 Gen as [phone] [place] [address] [place] 2022-02-18 2022-02-18 Outpatient Derek GUIDO [facility] [id number] Univers 14:00:00 14:36:22 YU itreid o [facility] 2022-02-18 2022-02-18 Orders Doctor SATISH 1.2.840.114 [id number] Univers 00:00:00 00:00:00 Only Unassigned, CLARKE 350.1.13.10 ity of [place] [facility] 4.2.7.2.686 Gen as [id number] [place] [address] [place] 2022-02-09 2022-02-09 Outpatient Derek GUIDO [facility] [id number] Univers 15:30:00 15:30:00 YU holm o [facility] 2022-02-09 2022-02-09 Outpatient Derek GUIDO [facility] [id number] Univers 15:30:00 15:30:00 YU friasy o [facility] 2021-12-29 2021-12-29 Outpatient Derek GUIDO [facility] [id number] Univers 11:15:00 11:40:55 YU friasy o [facility] 2021-12-29 2021-12-29 Office [facility] 1.2.840.114 [id number] Univers 11:15:00 11:40:55 Visit Yu [place] 350.1.13.10 ity of [place].2.[place] [phone] [address] [facility] 2021-12-29 2021-12-29 Outpatient Derek GUIDO [facility] [id number] Univers 11:15:00 11:40:55 YU ity o [facility] 2021-12-24 2021-12-24 Outpatient MUKUND Lopes, [facility] [place] [id number] [facility] 08:00:00 08:00:00 Yash Duncan [facility] 2021-12-24 2021-12-24 Orders Doctor SATISH 1.2.840.114 [id number] Univers 00:00:00 00:00:00 Only Unassigned, CLARKE 350.1.13.10 ity of [place] [facility] 4.2.7.2.686 Gen as [phone] [address] 2021-12-19 2021-12-19 Refill Moses [facility] 1.2.840.114 [id number] Univers 00:00:00 00:00:00 Yash HCEK 350.1.13.10 i ty of [place]SS[place] [phone] [address] 2021-12-16 2021-12-16 Telephone [facility] 1.2.002.368 [id number] Univers 00:00:00 00:00:00 Oralia A HEALTH 350.1.13.10 i ty of [place] 4.2.7.2.686 Gen as [place]?BLEA [id number] [address] OFFICE BUILDING 2021-12-11 2021-12-11 Telephone Akbar, [facility] 1.2.094.898 [id number] Univers 00:00:00 00:00:00 Oralia A HEALTH 350.1.13.10 i ty of [place] 4.2.7.2.686 Gen as [place]?BLEA [phone] [address] MEDICAL OFFICE BUILDING 2021-12-10 2021-12-10 [employer], Ang - Db [facility] 1.2.840.1 14 [id number] Univers 12:00:00 12:15:00 Visit Cinthya Webbere A HEALTH 350.1.13.10 ity of [place] 4.2.7.2.686 Gen as [place]?BLEA [phone] [facility] [address] MEDICAL OFFICE BUILDING 2021-12-10 2021-12-10 Office [facility] 1.2.840.114 [id number] Univers 10:00:00 12:03:38 Visit Oralia ALVAREZ 350.1.13.10 i ty of [place] 4.2.7.2.686 Gen as [place]?BLEA [phone] Ut cesar JUSTIN [address] MEDICAL OFFICE [facility] 2021-12-10 2021-12-10 Outpatient R AKBAR [facility] [id number] Univers 10:00:00 12:03:38 ORALIA holm [facility] 2021-12-10 2021-12-10 Outpatient R AKBAR [facility] [id number] Univers 12:00:00 12:00:00 ROALIA holm [facility] 2021-12-10 2021-12-10 [facility]patient [facility] [id number] Univers 10:00:00 10:00:00 ORALIA holm [facility] 2021-12-10 2021-12-10 Outpatient Derek HUNTERCYN [facility] [id number] Univers 09:45:00 09:45:00 YASH holm [facility] 2021-12-10 2021-12-10 Outpatient R ELSACYN [facility] [id number] Univers 09:45:00 09:45:00 YASH reid [facility] 2021-11-12 2021-11-12 Outpatient Derek [facility] [id number] Univers 10:36:06 23:59:00 YASH reid [facility] 2021-11-12 2021-11-12 [facility] [id number] [id number] Univers 10:36:06 23:59:00 Encounter Yash [facility] 350.1.13.10 ity of [place] H[place]K 4.2.7.2.686 Gen as [place]?BLEA [phone] Ut cesar JUSTIN 809 [facility] OFFICE [facility] 2021-11-12 2021-11-12 Outpatient Derek LOPES [facility] [id number] Univers 10:36:06 10:36:06 YASH [facility] 2021-11-12 2021-11-12 Office [facility] 1.2.840.114 [id number] Univers 09:45:00 10:35:24 Visit [facility] 350.1.13.10 it y of [place] 4.2.7.2.686 Gen as [place]?BLEA [phone] [address] OFFICE [facility] 2021-11-12 2021-11-12 Outpatient R [facility] [id number] Univers 09:45:00 09:45:00 [facility] 2021-11-12 2021-11-12 Telephone [facility] 1.2.840.114 [id number] Univers 00:00:00 00:00:00 [facility] 350.1.13.10 it y of [place] 4.2.7.2.686 Gen as [place]?BLEA [id number] [address] OFFICE [facility] 2021-11-03 2021-11-03 Orders Doctor SATISH 1.2.840.114 [id number] Univers 00:00:00 00:00:00 Only Unassigned, CLARKE 350.1.13.10 ity of [place] [facility] 4.2.7.2.686 Gen as [phone] [address] 2021-10-14 2021-10-14 Office [facility] 1.2.840.114 [id number] Univers 10:00:00 10:15:00 Visit [facility] 350.1.13.10 it y of [place] 4.2.7.2.686 Gen as [place]?BLEA [phone] [address] OFFICE [facility] 2021-10-14 2021-10-14 Outpatient [facility] [id number] Univers 10:00:00 10:00:00 [facility] 2021-10-14 2021-10-14 Outpatient R [facility] [id number] Univers 10:00:00 10:00:00 [facility] 2021-09-30 2021-09-30 [facility]ul [facility] 1.2.840.114 [id number] Univers 00:00:00 00:00:00 Killian HECK 350.1.13.10 i ty of [place] [phone] [address] 2021-09-16 2021-09-16 Orders Doctor SATISH 1.2.840.114 [id number] Univers 00:00:00 00:00:00 Only Unassigned, CLARKE 350.1.13.10 [facility] 4.2.7.2.686 Gen as [phone] [address] 2021-08-30 2021-08-30 [facility] 1.2.840.114 [id number] Univers 00:00:00 00:00:00 Yash HECK 350.1.13.10 i ty of Nicolásdevika [place].2.[place] [id number] [address] 2021-07-13 2021-07-13 [facility] 1.2.840.114 [id number] Univers 00:00:00 00:00:00 Killian Heck 350.1.13.10 i ty of [place]2.7.2.[place] [phone] [address] 2021-06-06 2021-06-06 [facility] 1.2.840.114 [id number] Univers 00:00:00 00:00:00 Yash Heck 350.1.13.10 i ty of Nicolásdevika [place] 4.2.7.2.[place] Profess[place] [id number] Ut dic[address] 2021-04-16 2021-04-16 Office [facility] 1.2.840.114 [id number] Univers 10:15:45 10:30:45 Visit [facility] 350.1.13.10 it y of Russ [place] 4.2.7.2.686 Gen as Professio [phone] [address] Office [facility] 2021-04-16 2021-04-16 Outpatient [facility] [id number] Univers 10:15:00 10:15:00 YASH holm [facility] 2021-04-16 2021-04-16 [facility] 1.2.840.114 [id number] Univers 00:00:00 00:00:00 Yash Marshall 350.1.13.10 i ty of [place] 4[place]2.7.2.[place] [id number] [address] 2021-01-23 2021-01-23 [facility] 1.2.840.114 [id number] Univers 00:00:00 00:00:00 Yash Heck 350.1.13.10 i ty of Nicol[place].2.7.2.[place] [phone] [address] 2021-01-02 2021-01-02 Patient [facility] 1.2.840.114 [id number] Univers 00:00:00 00:00:00 Outreach [facility] 350.1.13.10 i ty of [facility] 4.2.7.2.[place] [phone] [address] 2020-12-03 2020-12-03 Outpatient Derek [facility] [id number] Univers 13:45:00 13:45:00 YASH holm [facility] 2020-12-03 2020-12-03 Office [facility] 1.2.840.114 [id number] Univers 13:25:58 13:40:58 Visit [facility] 350.1.13.10 it y of [place] 4.2.7.2.686 Gen as Professio [phone] [address] Office [facility] 2020-11-02 2020-11-02 [facility] 1.2.840.114 [id number] Univers 00:00:00 00:00:00 Yash Heck 350.1.13.10 i ty of [place].2.[place] [phone] [address] 2020-10-15 2020-10-15 Refindio [facility] 1.2.840.114 [id number] Univers 00:00:00 00:00:00 Yash Heck 350.1.13.10 i ty of [place]7.2.[place] [phone] [address] 2020-10-15 2020-10-15 [facility] 1.2.840.114 [id number] 00:00:00 00:00:00 Yash Heck 350.1.13.10 [facility] 4.2.7.2.686 Professio [phone] [address] 2020-10-13 2020-10-13 [facility], [facility] [place] [id number] [facility] 12:00:00 12:00:[address] [place] [address] 2020-09-23 2020-09-23 [facility] 1.2.840.114 [id number] [facility] 00:00:00 00:00:00 Yash Heck 350.1.13.10 i ty of [facility] 4.2.7.2.[place] [phone] [address] 2020-09-23 2020-09-23 [facility] 1.2.840.114 [id number] 00:00:00 00:00:00 Yash Heck 350.1.13.10 [facility] 4.2.7.2.686 Professio [phone] [address] 2020-08-06 2020-08-06 [facility] 1.2.840.114 [id number] Univers 00:00:00 00:00:00 Yash Heck 350.1.13.10 i ty of [place] 4[place]2.7.2.[place] [phone] [address] 2020-08-06 2020-08-06 Refindio LopesPLAINS [facility] 1.2.840.114 [id number] 00:00:00 00:00:00 Yash Heck 350.1.13.10 Russ Mendez 4.2.7.2.686 Professio [phone] nal [address] [place] [address] 2020-07-30 2020-07-30 Laboratory Only, [facility] Test [place] 1.2.840. 114 [id number] Univers 09:54:15 10:09:15 Only Marielena Christian 350.1.13.10 ity of [place]2.[place] [facility] [place] [phone] [address] 2020-07-30 2020-07-30 Laboratory Only, [facility] 1.2.840.114 [id number] 09:54:15 10:09:15 Only Marely Heck 350.1.13.10 [place] 4.2.7.2.686 [facility] [place] [phone] [facility] 2020-07-30 2020-07-30 Outpatient R GINO, [facility] [id number] Univers 09:30:00 09:30:00 MARIELENA holm of [facility] 2020-07-30 2020-07-30 Orders Doctor COVARRUBIAS 1.2.840.114 [id number] Univers 00:00:00 00:00:00 Only Unassigned, CLARKE 350.1.13.10 ity of [place] [facility] 4.2.7.2.686 Gen as [phone] [address] 2020-07-30 2020-07-30 Orders Doctor COVARRUBIAS 1.2.840.114 [id number] 00:00:00 00:00:00 Only Unassigned, CLARKE 350.1.13.10 [facility] 4.2.7.2.686 [phone] [facility] 2020-07-28 2020-07-28 [facility] 1.2.840.114 [id number] Univers 00:00:00 00:00:00 Yash Heck 350.1.13.10 i ty of [place] [phone] Ut dical [address] 2020-07-28 2020-07-28 Parul Lopes [facility] 1.2.840.114 [id number] 00:00:00 00:00:00 Yash Heck 350.1.13.10 Eddevika [place] 4.2.7.2.686 Professio [phone] [address] 2020-05-14 2020-05-14 Pre Visit [facility] 1.2.840.114 [id number] Univers 00:00:00 00:00:00 Outreach Yash Heck 350.1.13.10 ity of [place]2.7.2.[place] [phone] Ut dical [address] 2020-05-14 2020-05-14 Pre Visit [facility] 1.2.840.114 [id number] 00:00:00 00:00:00 Outreach Yash Heck 350.1.13.10 Eddevika [place] 4.2.7.2.686 Professio [phone] [address] 2020-05-09 2020-05-09 [facility] 1.2.840.114 [id number] [facility] 00:00:00 00:00:00 Yash Heck 350.1.13.10 i ty of [place]2.[place] [phone] Ut dic[address] 2020-05-09 2020-05-09 [facility] 1.2.840.114 [id number] 00:00:00 00:00:00 Yash Heck 350.1.13.10 [place] 4.2.7.2.686 Professio [phone] [address] 2020-03-25 2020-03-25 Outpatient R [facility] [id number] Univers 13:15:00 13:15:00 YASH ity of [facility] 2020-03-25 2020-03-25 Telemedici [facility] 1.2.840.114 [id number] Univers 07:51:56 08:06:56 ne Visit Yash Heck 350.1.13.10 ity of [place]2.[place] [phone] Ut dic[address] 2020-03-25 2020-03-25 Telemedici Moses [facility] 1.2.840.114 [id number] 07:51:56 08:06:56 ne Visit Yash Heck 350.1.13.10 [place] 4.2.7.2.686 [place] [phone] nal 044 [facility] 2019-10-04 2019-10-04 Outpatient R RADIOLOGY [facility] [id number] Univers 13:57:56 23:59:00 ity of [facility] Results Test Description Test Time Test Comments Results Result Comments Source TROPONIN-I RAPID 2019-12-04 23:09:00 Test Item Value Reference Range Interpretation Comme nts TROPONIN-I RAPID (test code = 0.00 ng/mL 0.00-0.08 N Performed by certified fourdrinier machine operator TROPIRAP) at [facility] ed C[facility] Negative: <= 0.08 Positiv e: >= 0.09An elevated tropon in value alone is not sufficient todiagnose a myocardial infa rction. Rather, the patient scl inical presentation (h istory, physical exam) and ECGsh ould be used in conjunction wit h troponin in thediagnostic e valuation of suspected myoca rdial infarction. Aserial samplin g protocol is recommended to facilitate the identification of temporal changes in trop onin levels characteristic of MA. - XR CHEST 2 [id number] 20:56:00 FAX: Genaro Soria MD [phone] [facility] [place]: St: PRE Name: KEENAN LOPEZ [facility] : 1950 Age/S: 69/F [address] [place] [address] Blvd Unit #: [id number] Loc: [place] [address] Phys: Genaro Soria MD Acct: [id number] Dis Date: Status: PRE ER PHONE #: [phone] Exam Date: 12/04/20192047 FAX #: [phone] Reason: Chest Pain EXAMS: CPT CODE: [id number] XR CHEST 2 V 61200 Clinical Indication: ChestPain Comparison: None FINDINGS: The frontal and lateral chest radiographs show normal lung volumes. No interstitial or airspace opacities are seen. No pleural effusions are present. No pneumothorax is seen. The heart is normal in size. The trachea is midline. There are no clinically significant osseous abnormalities noted. IMPRESSION: No chest radiographic evidence of acute cardiopulmonary disease. SL: SHAWN at 2055 Reported and signed by: King Boothe M.D. CC: Genaro Soria MD Technologist: RT Sy(Derek) Trnscrd Date/Time/By: 12/04/2019 (2055) : By: MagaliLNV Orig Print D/T: S: 12/04/2019 (2058) PAGE 1 Signed ReportBASIC METABOLIC [id number] 20:49:00 Test Item Value Reference Range Interpretation [...] 9.3 mg/dL 8.0-10.5 N CA) BASIC METABOLIC [id number] 20:46:00 Test Item Value Reference Range Interpretation [...] CA) 9.3 mg/dL 8.0-10.5 N CBC W/AUTO [id number] 20:36:00 Test Item Value Reference Range Interpretation [...] REQUIRED (test code NO = MDIFF) TROPONIN-I [id number] 20:09:00 Test Item Value Reference Range Interpretation Comments TROPONIN-I RAPID 0.00 ng/mL 0.00-0.08 N Performed b y certified (test code = 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 09An elevated tropon in value alone is not shah fficient todiagnose a my ocardial infarction. Rat her, the patient sclinic al presentation (h istory, physical exam) and ECGshould be us ed in conjunction wit h troponin in thediagnosti c evaluation of s uspected myocardial infa rction. Aserial samplin g protocol is recommended to facilitate the identification of temporal changes in trop onin levels characteristic of MA. ALCOHOL ETHYL [id number] 21:15:00 Test Item Value Reference Range Interpretation Comments ALCOHOL ETHYL BLOOD (test code = HUMA BURNS) UR COMPREHENSIVE DRUG [id number] 21:15:00 Test Item Value Reference Range Interpretation Comments DRUGS DETECTED IN URINE REPORT SENT TO [facility] (test code = DRUGTU) ALCOHOL ETHYL [id number] 21:15:00 Test Item Value Reference Range Interpretation Comments ALCOHOL ETHYL BLOOD (test code = HUMA BURNS) UR COMPREHENSIVE DRUG [id number] 21:15:00 Test Item Value Reference Range Interpretation Comments DRUGS DETECTED IN URINE (test code = DRUGTU)
--- NOTE | 2023-03-08 14:22 | OP ---
Date of Procedure: 03/08/2023 Surgeon: Moi Montague MD Preoperative Diagnosis: Severe right knee osteoarthritis. Postoperative Diagnosis: Severe right knee osteoarthritis. Procedure: Right total knee arthroplasty using the Vanguard total knee system from [employer]. Estimated Fluid Loss: 100 cc. Complications: There were no complications. Indications For Operation: Ms. Nieto is a 73-year-old female, who has been suffering with severe pain in her right knee for quite some time. This continues despite extensive conservative care, limiting her ability to participate in activities of daily living with chronic pain. Risks, benefits, and al ternatives to total knee arthroplasty have been discussed with her in detail. She states she underst ands things as presented and wishes to proceed. Description Of Procedure: The patient was taken to the operating room and placed in the supine posit ion. General anesthesia was obtained by staff. She had previously obtained a block in the holding a nannette. After this, a well-padded tourniquet was placed on the superior right thigh. Right lower extre mity was then prepped and draped in the usual fashion for the procedure. The leg was then elevated a nd exsanguinated. The knee was bent and tourniquet was raised. A standard anterior incision was tomas en down carefully through skin and soft tissues. Meticulous hemostasis being maintained using Bovie electrocautery. This leads down to the appropriate level, which was then exploited exposing the ante rior knee and extensor mechanism. A standard medial parapatellar arthrotomy was then performed witho ut difficulty, allowing for some debridement of fat pad as well as debridement of the medial meniscus . The patella was then everted and the lateral meniscus was then removed as well as the anterior cru ciate ligament. After this, there was a notch osteophyte noted and it was cleared as the intramedull sam alignment guide was then placed. It was placed without difficulty and the distal femoral cut was made. After this, a Sizer was placed and found to be sized to a 62.5. The 62.5 cutting block was t hen placed. It was then cut in standard fashion. Attention was then turned to the tibia. PCL retra ctor was used to bring the tibia forward and a more or less standard tibial cut was then performed an d it was then sized. After this, the trial femur and trial tibia were then placed with a size 10 shaq y. This appears to come to full extension easily as well as being stable to varus and valgus stress as flexion and extension does not appear to have any instability in either direction and appeared to be well balanced. The patella glides easily. After this, the patella was then calipered and cut and a trial patella was then placed. It also appears to glide well. After this, the trial femur was th en removed and the tibia was punched and the box cut was made in the femur without difficulty. All s urfaces were then prepped for cementation and they were dried. After this, the final tibial base salima te, patella and femur were then placed with the trial polyethylene being a size 10. These were held in place without any unsupported cement being removed. All cement was allowed to dry. After this, i t was then trialed with a 12. Patella actually appeared to be a little bit better with regard to ove rall field, although the standard 12 could be acceptable, decided to move forward with a 12. The fin al 12 was then placed and locking bar was placed. The wound was again irrigated and the extensor mec hanism was repaired back in a watertight fashion using heavy Ethibond sutures. This was followed by repair of the skin using Vicryl followed by bassam. The patient was then placed in a very well-padd ed sterile dressing, awakened, and taken to recovery in good condition. There were no complications. SE/MODL Voice ID: [id number] Report ID: [id number]
[2023-03-08 15:21] VITALS: BMI 28.3
[2023-03-08] MEDS: HYDROCODONE/APAP 7.5/325 MG TAB PO PRN ×2 (15:36→21:20)
[2023-03-08] MEDS: CEFAZOLIN 1 GM in NA CHLORIDE 0.9% 50 ML IVPB SCH ×2 (16:06→23:30)
[2023-03-08] MEDS ORDERED: HOME MED 1 EA UNK [ALBUTEROL INHALER 60 PUFF/8 GM] IH PRN (16:42)
--- NOTE | 2023-03-08 17:37 | P.CNS ---
Date of Consult: 03/08/23 Reason for Consult: Medical management Requesting Physician: Moi Montague Chief Complaint: Right knee pain. Status post right total History of Present Illness: Patient is a 73-year-old female with a past medical history significant for HTN, OA, obesity, hard of hearing, depression, hyperlipidemia who presents for a planned procedure--right knee replacement with her orthopedic surgeon. Patient reported that she has been having pain in her right knee for the past couple of years. Patient has attempted conservative management techniques, steroid injections and pain medications but patient has not had any relief of symptoms. Patient rated pain before procedure as 10/10 in severity and described pain as aching in quality. Patient agreed with orthopedic surgeon for a right knee replacement and patient presented to the hospital as planned. Patient tolerated procedure. Patient continues to complain of pain in the right knee. Patient resting in bed with daughter at bedside. Allergies meperidine [From Demerol] Allergy (Verified 03/08/23 07:43) Anaphylaxis varicella-zoster immune globulin (h Allergy (Verified 03/08/23 07:43) Fever, Body Aches Home Medications: Albuterol Inhaler [Ventolin Inhaler] 2 puff IH Q4H PRN 08/10/22 Amlodipine [Norvasc] 5 mg PO DAILY 08/10/22 Atorvastatin Calcium [Lipitor] 10 mg PO BEDTIME 08/10/22 Budesonide/Formoterol Fumarate [Symbicort 160-4.5 Mcg Inhaler] 2 puff IH BID 08/10/22 Citalopram [Celexa] 20 mg PO DAILY 08/10/22 Meloxicam 15 mg PO DAILY 08/10/22 Potassium Chloride 20 meq PO DAILY 08/10/22 Valsartan/Hydrochlorothiazide [Valsartan-Hctz 320-25 mg Tab] 1 each PO DAILY 08/10/22 Acetaminophen [Tylenol Arthritis] 2 tab PO BID 03/03/23 Azelastine/Fluticasone [Azelastin-Flutic 137-50Mcg Spr] 1 spray NS DAILY 03/03/23 Benralizumab [Fasenra] 30 mg SQ SEECOM 03/03/23 Calcium Carbonate/Vitamin D3 [Calcium 600-D3 20Mcg(800 Unit)] 1 each PO BID 03/03/23 Famotidine [Pepcid] 20 mg PO DAILY 6PM 03/03/23 Fexofenadine HCl [Mariella Allergy] 180 mg PO DAILY 03/03/23 Glucosamine/Chondr Murguia A Sod [Osteo Bi-Flex Caplet] 1 each PO BID 03/03/23 Multivit-Min/Iron/Folic/Lutein [Centrum Silver Women Tablet] 1 each PO DAILY 03/03/23 Mv-Mn/Om3/Dha/Epa/Fish/Lut/Glen [Ocuvite Adult 50 Plus Softgel] 1 each PO DAILY 03/03/23 Pantoprazole [Protonix Tab] 40 mg PO DAILY 03/03/23 Tiotropium Geary [Spiriva Respimat] 2 puff IH DAILY 03/03/23 carvediloL [Carvedilol] 6.25 mg PO BID 03/03/23 - Past Medical/Surgical History Diabetic: No -: hypertension -: hyperlipidemia -: osteoarthritis -: asthma -: depression -: Suarez's Esophagus -: Gastritis -: appendectomy -: tonsillectomy -: right foot surgery -: Left breast biopsy -: right knee meniscectomy -: right salpingectomy - Family History Mother Medical History: Cancer, Other (see notes) Notes: thyroid cancer Father Medical History: Lung disease, Other (see notes) Notes: Parkinson's Sister Medical History: Hypertension - Social History Smoking Status: Never smoker Alcohol use: No CD- Drugs: No Caffeine use: Yes Place of Residence: Home Review of Systems General: Unremarkable Eyes: Unremarkable ENT: Other (Hard of hearing.) Respiratory: Unremarkable Cardiovascular: Unremarkable Gastrointestinal: Unremarkable Genitourinary: Unremarkable Musculoskeletal: Unremarkable Integumentary: Unremarkable Neurological: Unremarkable Lymphatics: Unremarkable Physical Examination Temp Pulse Resp BP Pulse Ox 97.0 F 61 16 139/75 98 03/08/23 16:00 03/08/23 16:00 03/08/23 16:00 03/08/23 16:00 03/08/23 16:00 General: Alert, In no apparent distress, Oriented x3 HEENT: Atraumatic, PERRLA, Mucous membr. moist/pink, EOMI, Sclerae nonicteric Neck: Supple, 2+ carotid pulse no bruit, No LAD, Without JVD or thyroid abnormality Respiratory: Clear to auscultation bilaterally, Normal air movement Cardiovascular: No edema, Regular rate/rhythm, Normal S1 S2 Capillary refill: <2 Seconds Gastrointestinal: Normal bowel sounds, Soft and benign, No tenderness Musculoskeletal: No clubbing, No swelling, No contractures, No erythema Integumentary: No rashes, Other (Right knee surgical incision.) Neurological: Normal speech, Normal tone, Normal affect Lymphatics: No axilla or inguinal lymphadenopathy Laboratory Data (last 24 hrs) 03/08/23 08:18: Sodium 135 L, Potassium 3.6, BUN 8, Creatinine 0.68, Glucose 112 H 03/08/23 06:53: Sodium Cancelled, Potassium Cancelled, BUN Cancelled, Creatinine Cancelled, Glucose Cancelled Conclusions/Impression: -- Right knee osteoarthritis. Status post right total knee arthroplasty. Orthopedic surgery on board. Continue CPM therapy. PT eval and treat. Continue supportive care. --Acute pain\OA. We will manage pain with current pain medication regimen. --Asthma. Stable. Continue home medications. --Hyperlipidemia. Continue statin. --Hypertension. Stable. Continue home medications. --Suarez's esophagus\history of gastritis. Continue home medication. --Class I obesity. Likely secondary to excess calories intake. Patient couns eled on weight reduction, diet and excise therapy. --Hard of hearing. Patient uses hearing aid. Continue supportive care. --DVT prophylaxis with SCDs. Continue chemical prophylaxis in a.m. Physician Review: Patient Assessed, Agree with Above Assessment and Plan Critical Care: No
[2023-03-08] MEDS ORDERED: HYDRALAZINE HCL 20 MG/ML VIAL IV PRN (17:45)
[2023-03-08] MEDS ORDERED: FAMOTIDINE 20 MG TAB PO SCH (18:00)
[2023-03-08 18:35] LABS: Magnesium 2.2 mg/dL (1.6-2.4); Phosphorus 3.4 mg/dL (2.5-4.9)
[2023-03-08 20:17] LABS: Absolute Lymphocytes (CBC) 0.3 K/uL (0.7-4.9); Hematocrit 35.5 % (36.0-45.0); Lymphocytes % 2.6 % (15.3-44.8); MCV 94.2 fL (80-100); MPV 8.9 fL (7.6-11.3); RBC Red Blood Cell Count 3.77 M/uL (3.86-4.86)
[2023-03-08] MEDS ORDERED: CALCIUM CARBONATE PO SCH (21:00)
[2023-03-08] MEDS ORDERED: VITAMIN D3 PO SCH (21:00)
[2023-03-08] MEDS ORDERED: HOME MED 1 EA UNK (Glucosamine/Chondr Su A Sod [Osteo Bi-Flex Caplet] Tablet) PO SCH (21:00)
[2023-03-08] MEDS ORDERED: [UNRECOGNIZED DRUG - OTHER] PO SCH (21:00)
[2023-03-08] MEDS ORDERED: ATORVASTATIN 10 MG TAB PO SCH (21:00)
[2023-03-08] MEDS: HOME MED 1 EA UNK (Budesonide/Formoterol Fumarate [Symbicort 160-4.5 Mcg Inhaler] 10.2 GM IH SCH (21:00)
[2023-03-08] MEDS: GLUCOSAM/CHONDROI 500mg-400mg PO SCH (21:08)
[2023-03-08] MEDS: carvediloL 6.25 MG TAB PO SCH (21:08)
[2023-03-08] MEDS: CALCIUM CARB 500MG/VIT D 200 IU TAB PO SCH (21:08)
[2023-03-08 21:53] VITALS: O2SAT 95
[2023-03-09 04:21] LABS: Potassium 3.2 mEq/L (3.5-5.1)
[2023-03-09 04:34] LABS: Absolute Lymphocytes (CBC) 0.3 K/uL (0.7-4.9); Hematocrit 34.6 % (36.0-45.0); MCV 94.1 fL (80-100); MPV 9.3 fL (7.6-11.3); RBC Red Blood Cell Count 3.68 M/uL (3.86-4.86)
[2023-03-09 05:04] LABS: Specific Gravity 1.015 (1.005-1.030); Urine Bacteria None Seen /HPF (<20); Urine Bilirubin NEGATIVE (Negative); Urine Blood Trace (Negative); Urine Clarity Clear (Clear); Urine Color Colorless (Yellow); Urine Glucose NEGATIVE (Negative); Urine Mucus Slight /HPF (None Seen); Urine Protein NEGATIVE (Negative); Urine RBC <5 /HPF (None Seen); Urine Urobilinogen Normal (Normal)
[2023-03-09] MEDS: HYDROCODONE/APAP 7.5/325 MG TAB PO PRN ×2 (05:26→13:14)
[2023-03-09] MEDS ORDERED: ENOXAPARIN 30 MG/0.3 ML SQ SCH (06:00)
--- NOTE | 2023-03-09 07:15 | P.PN ---
Date of Service: 03/09/23 Subjective: Feeling pretty good today post surgery some nausea yesterday; now relieved this morning pain is well managed, not in much pain ambulating around with PT ROS: 10 point ROS as noted above, otherwise negative Physical Exam: GEN: Alert, oriented, NAD HEENT: Normal conjunctiva, sclera anicteric CV: Regular rate and rhythm, no edema, III/ systolic murmur Pulm: Nonlabored respirations on room air ABD: Soft, nontender, nondistended MSK: Knee brace in place on right leg Integumentary: No rashes Neuro: Normal speech, normal affect vitals reviewed Problem List: Right knee osteoarthritis s/p right total knee arthroplasty 03/[address] Montague doing well post-operatively medically cleared for discharge ambulated with PT DVT prophylaxis/pain medication per Orth Asthma - Stable. Continue home medications. Hyperlipidemia - Continue statin. Hypertension - Stable. Continue home medications. Suarez's esophagus\history of gastritis - Continue home medication. Class I obesity - Likely secondary to excess calories intake. Patient counseled on weight reduction, diet and excise therapy. Hard of hearing - Patient uses hearing aid. Continue supportive care. Code: Full Dispo: Home today
[2023-03-09 07:29] LABS: Blood Morphology Comment NOT SEEN (NOT SEEN); Platelet Estimate ADEQ
[2023-03-09] MEDS ORDERED: EPA PO SCH (09:00)
[2023-03-09] MEDS: HOME MED 1 EA UNK (Budesonide/Formoterol Fumarate [Symbicort 160-4.5 Mcg Inhaler] 10.2 GM IH SCH (09:00)
[2023-03-09] MEDS ORDERED: MULTIVIT W/ MINERAL TAB PO SCH (09:00)
[2023-03-09] MEDS ORDERED: HOME MED 1 EA UNK (Potassium Chloride [Potassium Chloride] 20 MEQ Tablet.Er) PO SCH (09:00)
[2023-03-09] MEDS ORDERED: OCUVITE (VIT A,C & E/LUTEIN/MINERAL) TABLET PO SCH (09:00)
[2023-03-09] MEDS ORDERED: MV MN PO SCH (09:00)
[2023-03-09] MEDS ORDERED: DHA PO SCH (09:00)
[2023-03-09] MEDS ORDERED: [UNRECOGNIZED DRUG - OTHER] IH SCH (09:00)
[2023-03-09] MEDS ORDERED: LUT PO SCH (09:00)
[2023-03-09] MEDS ORDERED: POTASSIUM CL SA 10 MEQ TAB PO SCH (09:00)
[2023-03-09] MEDS ORDERED: FLUTICASONE IH SCH (09:00)
[2023-03-09] MEDS ORDERED: AZELASTINE IH SCH (09:00)
[2023-03-09] MEDS ORDERED: FEXOFENADINE 180 MG TAB PO SCH (09:00)
[2023-03-09] MEDS ORDERED: HOME MED 1 EA UNK (Multivit-Min/Iron/Folic/Lutein [Centrum Silver Women Tablet] Tablet) PO SCH (09:00)
[2023-03-09] MEDS ORDERED: VALSARTAN 160 MG TAB PO SCH (09:00)
[2023-03-09] MEDS ORDERED: FISH PO SCH (09:00)
[2023-03-09] MEDS ORDERED: hydroCHLOROthiazide 25 MG TAB PO SCH (09:00)
[2023-03-09] MEDS ORDERED: HOME MED 1 EA UNK (Tiotropium Bromide [Spiriva Respimat] 4 GM Mist.Inhal) IH SCH (09:00)
[2023-03-09] MEDS ORDERED: ZEA PO SCH (09:00)
[2023-03-09] MEDS ORDERED: [UNRECOGNIZED DRUG - OTHER] PO SCH (09:00)
[2023-03-09] MEDS ORDERED: CITALOPRAM 10 MG TABLET PO SCH (09:00)
[2023-03-09] MEDS ORDERED: HOME MED 1 EA UNK (Valsartan/Hydrochlorothiazide [Valsartan-Hctz 320-25 Mg Tab] 1 EACH Tab PO SCH (09:00)
[2023-03-09] MEDS ORDERED: PANTOPRAZOLE 40MG TABLET PO SCH (09:00)
[2023-03-09] MEDS ORDERED: AMLODIPINE 5 MG TAB PO SCH (09:00)
[2023-03-09] MEDS: CEFAZOLIN 1 GM in NA CHLORIDE 0.9% 50 ML IVPB SCH (10:09)
[2023-03-09] MEDS: CALCIUM CARB 500MG/VIT D 200 IU TAB PO SCH (10:12)
[2023-03-09] MEDS: GLUCOSAM/CHONDROI 500mg-400mg PO SCH (10:12)
[2023-03-09] MEDS: carvediloL 6.25 MG TAB PO SCH (10:12)
[2023-03-09 12:05] VITALS: BP 118/58; TEMP 98.5
== END 2023-03-09 14:13 | disposition home health service (06) ==
LOC: OR 06:47 → 2ND 13:44
PROVIDERS: ADMIT Orthopaedic Surgery; ATTEND Orthopaedic Surgery
PROC: 0SRC069 Replacement of Right Knee Joint with Oxidized Zirconium on Polyethylene Synthetic Substitute, Cemented, Open Approach (ICD-10-PCS; principal; 2023-03-08 10:00)
DX: M17.11 Unilateral primary osteoarthritis, right knee (principal); I10 Essential (primary) hypertension; J45.909 Unspecified asthma, uncomplicated; E78.5 Hyperlipidemia, unspecified; K22.70 Barrett's esophagus without dysplasia; K29.70 Gastritis, unspecified, without bleeding; K21.9 Gastro-esophageal reflux disease without esophagitis; F32.A Depression, unspecified; E66.9 Obesity, unspecified; Z68.28 Body mass index [BMI] 28.0-28.9, adult; Z71.3 Dietary counseling and surveillance; H91.90 Unspecified hearing loss, unspecified ear; Z97.4 Presence of external hearing-aid; Z88.6 Allergy status to analgesic agent; Z88.8 Allergy status to other drugs, medicaments and biological substances; Z82.49 Family history of ischemic heart disease and other diseases of the circulatory system; Z80.8 Family history of malignant neoplasm of other organs or systems; Z82.0 Family history of epilepsy and other diseases of the nervous system
CPT/HCPCS: 36415; 71046; 80048; 80053; 81001; 83735; 84100; 85025; 85610; 85730; 86850; 86900; 86901; 86920; 88305; 88311; 93005; 94010; 97110; 97116; 97139; 97161; 97530; C1776; G0378; J0171; J0690; J1100; J1170; J1650; J2001; J2175; J2250; J2405; J2704; J2710; J3010; J7030; J7120

== ENCOUNTER 2023-03-11 19:07 | Emergency (ER) | payer OTHER ==
--- OUTSIDE RECORDS SUMMARY | 2023-03-11 19:14 | XMS REPORT | Continuity of Care Document ---
:1950 Author Organization [facility] t Address [address] [place] [address] [place] [id number] Care Team Providers Name Role Phone Yash Lopes MD Primary Care Physician Yash Lopes Attending Clinician Unavailable Yash Lopes MD Attending Clinician Doctor Unassigned, [place] Attending Clinician Unavailable Yash Lopes Attending Clinician [...] Clinician Unavailable Yash Lopes Admitting Clinician Unavailable RAJINDER LYLES Admitting Clinician Unavailable Payers Payer Name Policy [...] [place] disease) disease) 00 Medica l Branch ME ME Disease Active Overview: Univer s (myocardia (myocardia [...] emia emia 2-23 ity of 00:00: [place] [facility] HTN HTN Disease Active [facility] [...] [facility] meperidi DA Active U UNKNOWN 2019-0 [facility] ne 2[facility]04 [place] 00:00: d [...] DRUG Active Unknown-Cmnt Un pratik NE INGREDI 2-23 ity of 00:00: [place] [address] [address] [place] Family History Family Member Diagnosis Comments Start Date Stop Date Source Natural father Emphy[facility] Maternal grandfather [facility] Maternal grandmother [facility] Natural mother [facility] Social History Social Habit Start Date Stop Date Quantity Comments Source Gender identity 2018-12-17 Identifies as [facility] gender Hospital (finding) Sexual orientation 2018-12-17 Heterosexual [facility] 09:03:28 (finding) Hospital History SDOH [facility] History [facility] Exposure to 2022-08-28 2022-09-07 Not sure University SARS-CoV-2 (event) 00:00:00 13:48:00 [facility] History of Social 2019-06-20 2019-06-[address] function 00:00:00 00:00:00 Hospital Alcohol intake 2018-12-16 2018-12-16 Current non-drinker M ethodist 00:00:00 00:00:00 of alcohol Hospital (finding) History SDOH 2018-12-15 2018-12-15 1 [facility] Frequency 00:00:00 00:00:00 Hospita l Tobacco use and 2015-12-24 2015-12-24 Smokeless tobacco Un iversity of exposure 00:00:00 00:00:00 non-user [facility] Sex Assigned At [birth year] Univers[facility] of 00:00:00 00:00:00 [facility] Smoking Status Start Date Stop Date Source Never smoked tobacco [facility] Medications Ordered Filled Start Stop Current Ordering Indication Dosage Frequency Signature Comments Components Source Medication Medication Date Date Medication? Clinician (SIG) Name Name atorvastati Yes [id number] 10mg TAKE 1 Univers n 10 mg 3-13 TABLET BY ity of tablet 00:00: [facility] [place] [address] [facility] [id number] 10mg TAKE 1 Univers n 10 mg 3-13 TABLET BY ity of tablet 00:00: MOUTH AT [place] 00 BEDTIME Medical Branch atorvastati 0 Yes [id number] 10mg TAKE 1 Univers n 10 mg 3-13 TABLET BY ity of tablet 00:00: [facility]TH AT [place] [facility] atorvastati 2022-0 Yes [id number] 10mg TAKE 1 Univers n 10 mg 3-13 TABLET BY ity of tablet 00:00: MOUTH AT [place] [facility] atorvastati 2022-0 Yes [id number] 10mg TAKE 1 Univers n 10 mg 3-13 TABLET BY ity of tablet 00:00: MOUTH AT [place] [facility] atorvastati 0 Yes [id number] 10mg TAKE 1 Univers n 10 mg 3-13 TABLET BY ity of tablet 00:00: MOUTH AT [place] [facility] Medical Branch atorvastati 0 Yes [id number] 10mg TAKE 1 Univers n 10 mg 3-13 TABLET BY ity of tablet 00:00: MOUTH AT [place] [facility] MELOXICAM 2022-0 Yes [id number] TAKE 1 U nivers 15 mg 1-23 TABLET BY ity of tablet 00:00: [facility] EVERY DAY Medical Branch MELOXICAM 2022-0 Yes [id number] TAKE 1 U nivers 15 mg 1-23 TABLET BY ity of tablet 00:00: [facility] EVERY DAY Medical Branch MELOXICAM 2022-0 Yes [id number] TAKE 1 U nivers 15 mg 1-23 TABLET BY ity of tablet 00:00: [facility] EVERY DAY Medical Branch MELOXICAM 3-0 Yes [id number] TAKE 1 U nivers 15 mg 1-23 TABLET BY ity of tablet 00:00: [facility] EVERY DAY Medical Branch MELOXICAM 3-0 Yes [id number] TAKE 1 U nivers 15 mg 1-23 TABLET BY ity of tablet 00:00: [facility] EVERY DAY Medical Branch MELOXICAM 2022-0 Yes [id number] TAKE 1 U nivers 15 mg 1-23 TABLET BY ity of tablet 00:00: [facility] EVERY DAY Medical Branch MELOXICAM 2022-0 Yes [id number] TAKE 1 U nivers 15 mg 1-23 TABLET BY ity of tablet 00:00: [facility] EVERY DAY Medical Branch MELOXICAM 2022-0 Yes TAKE 1 U nivers 15 mg 1-23 TABLET BY ity of tablet 00:00: MOUTH [place] 00 EVERY DAY Medical Branch VALSARTAN-H Yes [id number] TAKE 1 Univers YDROCHLOROT 1-03 TABLET BY ity of HIAZIDE 00:00: MOUTH [place] 320-25 mg 00 EVERY DAY Medic al per tablet Branch VALSARTAN-H Yes [id number] TAKE 1 Univers YDROCHLOROT 1-03 TABLET BY ity of HIAZIDE 00:00: MOUTH [place] 320-25 mg 00 EVERY DAY Medic al per tablet Branch VALSARTAN-H Yes [id number] TAKE 1 Univers YDROCHLOROT 1-03 TABLET BY ity of HIAZIDE 00:00: MOUTH [place] 320-25 mg 00 EVERY DAY Medic al per tablet Branch VALSARTAN-H Yes [id number] TAKE 1 Univers YDROCHLOROT 1-03 TABLET BY ity of HIAZIDE 00:00: MOUTH [place] 320-25 mg 00 EVERY DAY Medic al per tablet Branch VALSARTAN-H Yes [id number] TAKE 1 Univers YDROCHLOROT 1-03 TABLET BY ity of HIAZIDE 00:00: MOUTH [place] 320-25 mg 00 EVERY DAY Medic al per tablet Branch VALSARTAN-H Yes [id number] TAKE 1 Univers YDROCHLOROT 1-03 TABLET BY ity of HIAZIDE 00:00: MOUTH [place] 320-25 mg 00 EVERY DAY Medic al per tablet Branch VALSARTAN-H Yes [id number] TAKE 1 Univers YDROCHLOROT 1-03 TABLET BY ity of HIAZIDE 00:00: MOUTH [place] 320-25 mg 00 EVERY DAY Medic al per tablet Branch VALSARTAN-H Yes [id number] TAKE 1 Univers YDROCHLOROT 1-03 TABLET BY ity of HIAZIDE 00:00: MOUTH [place] 320-25 mg 00 EVERY DAY Medic al per tablet Branch VALSARTAN-H Yes [id number] TAKE 1 Univers YDROCHLOROT 1-03 TABLET BY ity of HIAZIDE 00:00: MOUTH [place] 320-25 mg 00 EVERY DAY Medic al per tablet Branch CITALOPRAM 2021-10 Yes [id number] TAKE 1 U nivers 20 mg 0-26 TABLET BY ity of tablet 00:00: MOUTH [place] 00 EVERY DAY Medical Branch CITALOPRAM 2021-10 Yes [id number] TAKE 1 U nivers 20 mg 0-26 TABLET BY ity of tablet 00:00: MOUTH [place] 00 EVERY DAY Medical Branch CITALOPRAM 2021-10 Yes [id number] TAKE 1 U nivers 20 mg 0-26 TABLET BY ity of tablet 00:00: MOUTH [place] 00 EVERY DAY Medical Branch CITALOPRAM 2021-10 Yes [id number] TAKE 1 U nivers 20 mg 0-26 TABLET BY ity of tablet 00:00: MOUTH [place] 00 EVERY DAY Medical Branch CITALOPRAM 2021-10 Yes [id number] TAKE 1 U nivers 20 mg 0-26 TABLET BY ity of tablet 00:00: MOUTH [place] 00 EVERY DAY Medical Branch CITALOPRAM 2021-10 Yes [id number] TAKE 1 U nivers 20 mg 0-26 TABLET BY ity of tablet 00:00: MOUTH [place] 00 EVERY DAY Medical Branch CITALOPRAM 2021-10 Yes [id number] TAKE 1 U nivers 20 mg 0-26 TABLET BY ity of tablet 00:00: MOUTH [place] 00 EVERY DAY Medical Branch CITALOPRAM 2021-10 Yes [id number] TAKE 1 U nivers 20 mg 0-26 TABLET BY ity of tablet 00:00: MOUTH [place] 00 EVERY DAY Medical Branch CITALOPRAM 2021-10 Yes [id number] TAKE 1 U nivers 20 mg 0-26 TABLET BY ity of tablet 00:00: MOUTH [place] 00 EVERY DAY Medical Branch CITALOPRAM 2021-10 Yes [id number] TAKE 1 U nivers 20 mg 0-26 TABLET BY ity of tablet 00:00: MOUTH [place] 00 EVERY DAY Medical Branch CITALOPRAM 2021-10 Yes [id number] TAKE 1 U nivers 20 mg 0-26 TABLET BY ity of tablet 00:00: MOUTH [place] 00 EVERY DAY Medical Branch CITALOPRAM 2021-10 Yes [id number] TAKE 1 U nivers 20 mg 0-26 TABLET BY ity of tablet 00:00: MOUTH [place] 00 EVERY DAY Medical Branch CITALOPRAM 2021-10 Yes [id number] TAKE 1 U nivers 20 mg 0-26 TABLET BY ity of tablet 00:00: MOUTH [place] 00 EVERY DAY Medical Branch CITALOPRAM 2021-10 Yes [id number] TAKE 1 U nivers 20 mg 0-26 TABLET BY ity of tablet 00:00: MOUTH [place] 00 EVERY DAY Medical Branch CITALOPRAM 2021-10 Yes [id number] TAKE 1 U nivers 20 mg 0-26 TABLET BY ity of tablet 00:00: MOUTH [place] DAY Medical Branch metoprolol 2021-10 Yes 25mg [...] s hr tablet morning. Medica l Branch ATORVASTATI Yes [id number] 10mg TAKE 1 Univers N 10 mg 2-21 TABLET BY ity of tablet 00:00: MOUTH AT [address] [facility] [id number] 10mg TAKE 1 Univers N 10 mg 2-21 TABLET BY ity of tablet 00:00: MOUTH AT [address] [facility] Yes [id number] 10mg TAKE 1 Univers N 10 mg 2-21 TABLET BY ity of tablet 00:00: MOUTH AT [address] [facility] Yes [id number] 10mg TAKE 1 Univers N 10 mg 2-21 TABLET BY ity of tablet 00:00: MOUTH AT [place] [facility] Yes [id number] 10mg TAKE 1 Univers N 10 mg 2-21 TABLET BY ity of tablet 00:00: MOUTH AT [address] [facility] Yes [id number] 10mg TAKE 1 Univers N 10 mg 2-21 TABLET BY ity of tablet 00:00: MOUTH AT [address] [facility] Yes [id number] 10mg TAKE 1 Univers N 10 mg 2-21 TABLET BY ity of tablet 00:00: MOUTH AT [address] ATORVASTATI Yes [id number] 10mg TAKE 1 Univers N 10 mg 2-21 TABLET BY ity of tablet 00:00: MOUTH AT [place] [facility] ATORVASTA Yes [id number] 10mg TAKE 1 Univers N 10 mg 2-21 TABLET BY ity of tablet 00:00: MOUTH AT [place] [facility] ATORVASTA 0 Yes [id number] 10mg TAKE 1 Univers N 10 mg 2-21 TABLET BY ity of tablet 00:00: MOUTH AT [place] [facility] Medical Branch ATORVASTA 0 Yes [id number] 10mg TAKE 1 Univers N 10 mg 2-21 TABLET BY ity of tablet 00:00: MOUTH AT [place] [facility] [id number] 10mg TAKE 1 Univers N 10 mg 2-21 TABLET BY ity of tablet 00:00: MOUTH AT [place] [facility] Yes [id number] 10mg TAKE 1 Univers N 10 mg 2-21 TABLET BY ity of tablet 00:00: MOUTH AT [place] [facility] Yes [id number] 10mg TAKE 1 Univers N 10 mg 2-21 TABLET BY ity of tablet 00:00: MOUTH AT [place] [facility] 2022- No [id number] 10mg TAKE 1 Univers N 10 mg 2-21 03-13 TABLET BY ity of tablet 00:00: 00:00 MOUTH AT [place] 00 :00 BEDTIME Medical Branch KCL 20 mEq 2021-0 Yes 20meq Take 20 Uni vers tablet 1-31 mEq by ity of 00:00: mouth [place] daily. Medical Branch KCL 20 mEq 2021-0 Yes 20meq Take 20 Uni vers tablet 1-31 mEq by ity of 00:00: mouth daily. Medical Branch KCL 20 mEq 2021-0 Yes 20meq Take 20 Uni vers tablet 1-31 mEq by ity of 00:00: mouth daily. Medical Branch KCL 20 mEq 2021-0 Yes 20meq Take 20 Uni vers tablet 1-31 mEq by ity of 00:00: mouth [place] daily. Medical Branch KCL 20 mEq 2021-0 Yes 20meq Take 20 Uni vers tablet [...] [place] 00 daily. Medical Branch valsartan-h Yes [id number] 1{tbl} Take 1 Univers ydrochlorot 1-13 tablet by ity of hiazide 00:00: mouth [place] 320-25 mg 00 daily. Medical per tablet Branch valsartan-h Yes [id number] 1{tbl} Take 1 Univers ydrochlorot 1-13 tablet by ity of hiazide 00:00: mouth [place] 320-25 mg 00 daily. Medical per tablet Branch valsartan-h Yes [id number] 1{tbl} Take 1 Univers ydrochlorot 1-13 tablet by ity of hiazide 00:00: mouth [place] 320-25 mg 00 daily. Medical per tablet Branch valsartan-h Yes [id number] 1{tbl} Take 1 Univers ydrochlorot 1-13 tablet by ity of hiazide 00:00: mouth [place] 320-25 mg 00 daily. Medical per tablet Branch valsartan-h Yes [id number] 1{tbl} Take 1 Univers ydrochlorot 1-13 tablet by ity of hiazide 00:00: mouth [place] 320-25 mg 00 daily. Medical per tablet Branch valsartan-h Yes [id number] 1{tbl} Take 1 Univers ydrochlorot 1-13 tablet by ity of hiazide 00:00: mouth [place] 320-25 mg 00 daily. Medical per tablet Branch valsartan-h Yes [id number] 1{tbl} Take 1 Univers ydrochlorot 1-13 tablet by ity of hiazide 00:00: mouth [place] 320-25 mg 00 daily. Medical per tablet Branch valsartan-h Yes [id number] 1{tbl} Take 1 Univers ydrochlorot 1-13 tablet by ity of hiazide 00:00: mouth [place] 320-25 mg 00 daily. Medical per tablet Branch valsartan-h Yes [id number] 1{tbl} Take 1 Univers ydrochlorot 1-13 tablet by ity of hiazide 00:00: mouth [place] 320-25 mg 00 daily. Medical per tablet Branch valsartan-h Yes [id number] 1{tbl} Take 1 Univers ydrochlorot 1-13 tablet by ity of hiazide 00:00: mouth [place] 320-25 mg 00 daily. Medical per tablet Branch valsartan-h Yes [id number] 1{tbl} Take 1 Univers ydrochlorot 1-13 tablet by ity of hiazide 00:00: mouth [place] 320-25 mg 00 daily. Medical per tablet Branch valsartan-h Yes [id number] 1{tbl} Take 1 Univers ydrochlorot 1-13 tablet by ity of hiazide 00:00: mouth [place] 320-25 mg 00 daily. Medical per tablet Branch valsartan-h 2022- No [id number] 1{tbl} Take 1 Univers ydrochlorot 1-13 -03 tablet by it y of hiazide 00:00: 00:00 mouth [place] 320-25 mg 00 :00 daily. Medical per tablet Branch MELOXICAM 2020-10 Yes TAKE 1 U nivers 15 mg 1-01 TABLET BY ity of tablet 00:00: MOUTH [place] 00 EVERY DAY Medical Branch MELOXICAM 2020-10 Yes [id number] TAKE 1 U nivers 15 mg 1-01 TABLET BY ity of tablet 00:00: MOUTH [place] 00 EVERY DAY Medical Branch MELOXICAM 2020-10 Yes [id number] TAKE 1 U nivers 15 mg 1-01 TABLET BY ity of tablet 00:00: MOUTH [place] 00 EVERY DAY Medical Branch MELOXICAM 2020-10 Yes [id number] TAKE 1 U nivers 15 mg 1-01 TABLET BY ity of tablet 00:00: MOUTH [place] 00 EVERY DAY Medical Branch MELOXICAM 2020-10 Yes [id number] TAKE 1 U nivers 15 mg 1-01 TABLET BY ity of tablet 00:00: MOUTH [place] 00 EVERY DAY Medical Branch MELOXICAM 2020-10 Yes [id number] TAKE 1 U nivers 15 mg 1-01 TABLET BY ity of tablet 00:00: MOUTH [place] 00 EVERY DAY Medical Branch MELOXICAM 2020- Yes TAKE 1 U nivers 15 mg 1-01 TABLET BY ity of tablet 00:00: MOUTH [place] 00 EVERY DAY Medical Branch MELOXICAM 2020-10 Yes TAKE 1 U nivers 15 mg 1-01 TABLET BY ity of tablet 00:00: MOUTH [place] 00 EVERY DAY Medical Branch MELOXICAM 2020- Yes TAKE 1 U nivers 15 mg 1-01 TABLET BY ity of tablet 00:00: MOUTH [place] 00 EVERY DAY Medical Branch MELOXICAM 2020- Yes TAKE 1 U nivers 15 mg [...] EVERY DAY Medical Branch CITALOPRAM 2020-0 Yes [id number] TAKE 1 U nivers 20 mg 8-10 TABLET BY ity of tablet 00:00: MOUTH [place] 00 EVERY DAY Medical Branch CITALOPRAM 1-0 Yes [id number] TAKE 1 U nivers 20 mg 8-10 TABLET BY ity of tablet 00:00: MOUTH [place] 00 EVERY DAY Medical Branch CITALOPRAM 2020-0 Yes [id number] TAKE 1 U nivers 20 mg 8-10 TABLET BY ity of tablet 00:00: MOUTH [place] 00 EVERY DAY Medical Branch CITALOPRAM 2020-0 Yes [id number] TAKE 1 U nivers 20 mg 8-10 TABLET BY ity of tablet 00:00: MOUTH [place] 00 EVERY DAY Medical Branch CITALOPRAM 2020-0 Yes [id number] TAKE 1 U nivers 20 mg 8-10 TABLET BY ity of tablet 00:00: MOUTH [place] 00 EVERY DAY Medical Branch CITALOPRAM 0 Yes [id number] TAKE 1 U nivers 20 mg 8-10 TABLET BY ity of tablet 00:00: MOUTH [place] 00 EVERY DAY Medical Branch CITALOPRAM 0 2- No [id number] TAKE 1 Univers 20 mg 8-10 10-26 TABLET BY ity of tablet 00:00: 00:00 MOUTH [place] 00 :00 EVERY DAY Medical Branch budesonide- 0 Yes 2{puff} Inhale 2 Univers formoteroL 2-03 Puffs 2 ity of 160-4.5 13:41: (two) [place] mcg/actuati 54 times Medical on inhaler daily. Branch budesonide- 0 Yes 2{puff} Inhale 2 Univers formoteroL 2-03 Puffs 2 ity of 160-4.5 13:41: (two) [place] mcg/actuati 54 times Medical on inhaler daily. [place] budesonide- Yes 2{puff} Inhale 2 Univers formoteroL 2-03 Puffs 2 ity of 160-4.5 13:41: (two) [place] mcg/actuati 54 times Medical on inhaler daily. [place] budesonide- Yes 2{puff} Inhale 2 Univers formoteroL 2-03 Puffs 2 ity of 160-4.5 13:41: (two) [place] mcg/actuati 54 times Medical on inhaler daily. [place] budesonide- Yes 2{puff} Inhale 2 Univers formoteroL 2-03 Puffs 2 ity of 160-4.5 13:41: (two) [place] mcg/actuati 54 times Medical on inhaler daily. Branch budesonide- 0 Yes 2{puff} Inhale 2 Univers formoteroL 2-03 Puffs 2 ity of 160-4.5 13:41: (two) [place] mcg/actuati 54 times Medical on inhaler daily. [place] budesonide- 0 Yes 2{puff} Inhale 2 Univers formoteroL 2-03 Puffs 2 ity of 160-4.5 13:41: (two) [place] mcg/actuati 54 times Medical on inhaler daily. [place] budesonide- 2020-0 Yes 2{puff} Inhale 2 Univers [...] daily. Branch GLUC/SABINA-M 0 Yes Take by Uni vers SM#1/C/JAY 2-03 mouth. ity of /ARIN/BOR 13:40: [place] (OSTEO 31 Medical BI-FLEX Branch TRIPLE STRENGTH ORAL) GLUC/SABINA-M 0 Yes Take by Uni vers SM#1/C/JAY 2-03 mouth. ity of /ARIN/BOR 13:40: [place] (OSTEO 31 Medical BI-FLEX Branch TRIPLE STRENGTH ORAL) GLUC/SABINA-M 2020-0 Yes Take by Uni vers SM#1/C/JAY 2-03 mouth. ity of /ARIN/BOR 13:40: [place] (OSTEO 31 Medical BI-FLEX Branch TRIPLE STRENGTH ORAL) GLUC/SABINA-M 2020-0 Yes Take by Uni vers SM#1/C/JAY 2-03 mouth. ity of /ARIN/BOR 13:40: [place] (OSTEO 31 Medical BI-FLEX Branch TRIPLE STRENGTH ORAL) GLUC/SABINA-M 2020-0 Yes Take by Uni vers SM#1/C/JAY 2-03 mouth. ity of /ARIN/BOR 13:40: [place] (OSTEO 31 Medical BI-FLEX Branch TRIPLE STRENGTH ORAL) GLUC/SABINA-M 2020-0 Yes Take by Uni vers SM#1/C/JAY 2-03 mouth. ity of /ARIN/BOR 13:40: [place] (OSTEO 31 Medical BI-FLEX Branch TRIPLE STRENGTH ORAL) GLUC/SABINA-M 2020-0 Yes Take by Uni vers SM#1/C/JAY 2-03 mouth. ity of /ARIN/BOR 13:40: [place] (OSTEO 31 Medical BI-FLEX Branch TRIPLE STRENGTH ORAL) GLUC/SABINA-M 0 Yes Take by Uni vers SM#1/C/JAY 2-03 mouth. ity of /ARIN/BOR 13:40: [place] (OSTEO 31 Medical BI-FLEX Branch TRIPLE STRENGTH ORAL) GLUC/SABINA-M 0 Yes Take by Uni vers SM#1/C/JAY 2-03 mouth. ity of /ARIN/BOR 13:40: [place] (OSTEO 31 Medical BI-FLEX Branch TRIPLE STRENGTH ORAL) GLUC/SABINA-M 0 Yes Take by Uni vers SM#1/C/JAY 2-03 mouth. ity of /ARIN/BOR 13:40: [place] (OSTEO 31 Medical BI-FLEX Branch TRIPLE STRENGTH ORAL) GLUC/SABINA-M 2020-0 Yes Take by Uni vers SM#1/C/JAY 2-03 mouth. ity of /ARIN/BOR 13:40: [place] (OSTEO 31 Medical BI-FLEX Branch TRIPLE STRENGTH ORAL) GLUC/SABINA-M 0 Yes Take by Uni vers SM#1/C/JAY 2-03 mouth. ity of /ARIN/BOR 13:40: [place] (OSTEO 31 Medical BI-FLEX Branch TRIPLE STRENGTH ORAL) GLUC/SABINA-M 0 Yes Take by Uni vers SM#1/C/JAY 2-03 mouth. ity of /ARIN/BOR 13:40: [place] (OSTEO 31 Medical BI-FLEX Branch TRIPLE STRENGTH ORAL) GLUC/SABINA-M 2020-0 Yes Take by Uni vers SM#1/C/JAY 2-03 mouth. ity of /ARIN/BOR 13:40: [place] (OSTEO 31 Medical BI-FLEX Branch TRIPLE STRENGTH ORAL) GLUC/SABINA-M 2020-0 Yes Take by Uni vers SM#1/C/JAY 2-03 mouth. ity of /ARIN/BOR 13:40: [place] (OSTEO 31 Medical BI-FLEX Branch TRIPLE STRENGTH ORAL) GLUC/SABINA-M 2020-0 Yes Take by Uni vers SM#1/C/JAY 2-03 mouth. ity of /ARIN/BOR 13:40: [place] (OSTEO 31 Medical BI-FLEX Branch TRIPLE STRENGTH ORAL) GLUC/SABINA-M 2020-0 Yes Take by Uni vers SM#1/C/JAY 2-03 mouth. ity of /ARIN/BOR 13:40: [place] (OSTEO 31 Medical BI-FLEX Branch TRIPLE STRENGTH ORAL) GLUC/SABINA-M 0 Yes Take by Uni vers SM#1/C/JAY 2-03 mouth. ity of /ARIN/BOR 13:40: [place] (OSTEO 31 Medical BI-FLEX Branch TRIPLE STRENGTH ORAL) GLUC/SABINA-M 0 Yes Take by Uni vers SM#1/C/JAY 2-03 mouth. ity of /ARIN/BOR 13:40: [place] (OSTEO 31 Medical BI-FLEX Branch TRIPLE STRENGTH ORAL) GLUC/SABINA-M 0 Yes Take by Uni vers SM#1/C/JAY 2-03 mouth. ity of /ARIN/BOR 13:40: [place] (OSTEO 31 Medical BI-FLEX Branch TRIPLE STRENGTH ORAL) GLUC/SABINA-M 0 Yes Take by Uni vers SM#1/C/JAY 2-03 mouth. ity of /ARIN/BOR 13:40: [place] (OSTEO 31 Medical BI-FLEX Branch TRIPLE STRENGTH [...] s formoteroL 4-06 ity of (SYMBICORT) 00:00: [place] 160-4.5 00 Medical mcg/actuati Branch on inhaler budesonide- 2020-0 Yes Univer s formoteroL 4-06 ity of (SYMBICORT) 00:00: [place] 160-4.5 00 Medical mcg/actuati Branch on inhaler budesonide- 2020-0 Yes Univer s formoteroL 4-06 ity of (SYMBICORT) 00:00: [place] 160-4.5 00 Medical mcg/actuati Branch on inhaler budesonide- 2020-0 Yes Univer s formoteroL 4-06 ity of (SYMBICORT) 00:00: [place] 160-4.5 00 Medical mcg/actuati Branch on inhaler budesonide- 2020-0 Yes Univer s formoteroL 4-06 ity of (SYMBICORT) 00:00: [place] 160-4.5 00 Medical mcg/actuati Branch on inhaler budesonide- 2020-0 Yes Univer s formoteroL 4-06 ity of (SYMBICORT) 00:00: [place] 160-4.5 00 Medical mcg/actuati Branch on inhaler budesonide- 2020-0 Yes Univer s formoteroL 4-06 ity of (SYMBICORT) 00:00: [place] 160-4.5 00 Medical mcg/actuati Branch on inhaler budesonide- 2020-0 Yes Univer s formoteroL 4-06 ity of (SYMBICORT) 00:00: [place] 160-4.5 00 Medical mcg/actuati Branch on inhaler budesonide- 2020-0 Yes Univer s formoteroL 4-06 ity of (SYMBICORT) 00:00: [place] 160-4.5 00 Medical mcg/actuati Branch on inhaler budesonide- 2020-0 Yes Univer s formoteroL 4-06 ity of (SYMBICORT) 00:00: [place] 160-4.5 00 Medical mcg/actuati Branch on inhaler budesonide- 2020-0 Yes Univer s formoteroL 4-06 ity of (SYMBICORT) 00:00: [place] 160-4.5 00 Medical mcg/actuati Branch on inhaler [...] mcg/actuati Branch on inhaler AMLODIPINE 2019-0 Yes [id number] TAKE 1 U nivers 5 mg tablet 7-05 TABLET BY ity of 00:00: MOUTH [place] 00 EVERY DAY Medical Branch AMLODIPINE 2019-0 Yes [id number] TAKE 1 U nivers 5 mg tablet 7-05 TABLET BY ity of 00:00: MOUTH [place] 00 EVERY DAY Medical Branch AMLODIPINE 2019-0 Yes [id number] TAKE 1 U nivers 5 mg tablet 7-05 TABLET BY ity of 00:00: MOUTH [place] 00 EVERY DAY Medical Branch AMLODIPINE 2019-0 Yes [id number] TAKE 1 U nivers 5 mg tablet 7-05 TABLET BY ity of 00:00: MOUTH [place] EVERY DAY Medical Branch AMLODIPINE 2019-0 Yes [id number] TAKE 1 U nivers 5 mg tablet 7-05 TABLET BY ity of 00:00: MOUTH [place] 00 EVERY DAY Medical Branch AMLODIPINE 2019-0 Yes [id number] TAKE 1 U nivers 5 mg tablet 7-05 TABLET BY ity of 00:00: MOUTH [place] 00 EVERY DAY Medical Branch AMLODIPINE 2019-0 Yes [id number] TAKE 1 U nivers 5 mg tablet 7-05 TABLET BY ity of 00:00: MOUTH [place] 00 EVERY DAY Medical Branch AMLODIPINE 2019-0 Yes [id number] TAKE 1 U nivers 5 mg tablet 7-05 TABLET BY ity of 00:00: MOUTH [place] 00 EVERY DAY Medical Branch AMLODIPINE 2019-0 Yes [id number] TAKE 1 U nivers 5 mg tablet 7-05 TABLET BY ity of 00:00: MOUTH [place] EVERY DAY Medical Branch AMLODIPINE 2019-0 Yes [id number] TAKE 1 U nivers 5 mg tablet 7-05 TABLET BY ity of 00:00: MOUTH [place] 00 EVERY DAY Medical Branch AMLODIPINE 2019-0 Yes [id number] TAKE 1 U nivers 5 mg tablet 7-05 TABLET BY ity of 00:00: MOUTH [place] EVERY DAY Medical Branch AMLODIPINE 2019-0 Yes [id number] TAKE 1 U nivers 5 mg tablet 7-05 TABLET BY ity of 00:00: MOUTH [place] 00 EVERY DAY Medical Branch AMLODIPINE 2019-0 Yes [id number] TAKE 1 U nivers 5 mg tablet 7-05 TABLET BY ity of 00:00: MOUTH [place] 00 EVERY DAY Medical Branch AMLODIPINE 2019-0 Yes [id number] TAKE 1 U nivers 5 mg tablet 7-05 TABLET BY ity of 00:00: MOUTH [place] 00 EVERY DAY Medical Branch AMLODIPINE 2019-0 Yes [id number] TAKE 1 U nivers 5 mg tablet 7-05 TABLET BY ity of 00:00: MOUTH [place] 00 EVERY DAY Medical Branch AMLODIPINE 2019-0 Yes [id number] TAKE 1 U nivers 5 mg tablet 7-05 TABLET BY ity of 00:00: MOUTH [place] 00 EVERY DAY Medical Branch AMLODIPINE 2019-0 Yes [id number] TAKE 1 U nivers 5 mg tablet 7-05 TABLET BY ity of 00:00: MOUTH [place] 00 EVERY DAY Medical Branch AMLODIPINE 2019-0 Yes [id number] TAKE 1 U nivers 5 mg tablet 7-05 TABLET BY ity of 00:00: MOUTH [place] 00 EVERY DAY Medical Branch AMLODIPINE 2019-0 Yes [id number] TAKE 1 U nivers 5 mg tablet 7-05 TABLET BY ity of 00:00: MOUTH [place] 00 EVERY DAY Medical Branch AMLODIPINE 2019-0 Yes [id number] TAKE 1 U nivers 5 mg tablet 7-05 TABLET BY ity of 00:00: MOUTH [place] 00 EVERY DAY Medical Branch AMLODIPINE Yes [id number] TAKE 1 U nivers 5 mg tablet 7-05 TABLET BY ity of 00:00: MOUTH [place] 00 EVERY DAY Medical Branch guaiFENesin Yes 200mg [id number] Take 200 Methodi (ROBITUSSIN 2-15 [id number] mg by s t ) 100 mg/5 [...] tablet day with meals. guaiFENesin Yes 200mg [id number] Take 200 [facility] (ROBITUSSIN 2-15 [id number] mg by s t ) 100 mg/5 [...] l E RX) 1-60-300 mg-mg-mcg tablet multivitami 20190 Yes 15mL QD Take 15 mL Method[facility] ns & 2-15 by mouth minerals-fe 13:11: daily. Hosp cosme rrous 49 l gluconate 9 mg iron/15 mL liquid calcium 2019-0 Yes 1{tbl} Q.5D Take 1 Method i carbonate-v 2-15 tablet by itamin D3 13:11: mouth 2 Hospi ta 500 mg-200 49 (two) l unit per times a tablet day with meals. guaiFENesin 20190 Yes 200mg Q.[id number] Take 200 [facility] (ROBITUSSIN 2-15 [id number] mg by s t ) 100 mg/5 [...] gluconate 9 mg iron/15 mL liquid calcium 20190 Yes 1{tbl} Q.5D Take 1 Method i carbonate-v 2-15 tablet by itamin D3 13:11: mouth 2 Hospi ta 500 mg-200 49 (two) l unit per times a tablet day with meals. guaiFENesin 20190 Yes 200mg Q.[id number] Take 200 [facility] (ROBITUSSIN 2-15 [id number] mg by s t ) 100 mg/5 13:11: 3D mouth 3 Hosp cosme mL syrup 49 (three) l times a day as needed for cough. fluticasone 0 Yes 2{spray QD 2 sprays [facility] (FLONASE) [...] mL Methodi ns & 2-[address] minerals-fe 13:11: daily. Hosp cosme rrous 49 l gluconate 9 mg iron/15 mL liquid calcium Yes 1{tbl} Q.5D Take 1 Method i carbonate-v 2-[address] itamin D3 13:11: mouth 2 Hospi ta [...] inhaler 00 hours as l needed. amLODIPine 0 Yes 5mg QD Take 5 mg Me [...] inhaler 00 hours as l needed. amLODIPine 0 Yes 5mg QD Take 5 mg Me [facility]odi (NORVASC) 5 1-[address] mg tablet 00:00: daily. Hospit a 00 l atorvastati Yes 10mg QD Take 10 mg [facility] n (LIPITOR) 1-[address] 10 MG 00:00: nightly. Hospita tablet 00 l PROAIR HFA 0 Yes 90ug Q4H Inhale 90 Me thodi [...] l ) 320-12.5 mg per tablet citalopram 2018-0 Yes 20mg QD Take 20 mg M [facility] (CeleXA) 20 5-[address] MG tablet 00:00: daily. Hospit a 00 l citalopram 20180 Yes 20mg QD Take 20 mg M [facility]i (CeleXA) 20 5-[address] MG tablet 00:00: daily. Hospit a 00 l meloxicam 2018-0 Yes 15mg QD Take 15 mg Me [facility] (MOBIC) 15 5-[address] mg tablet 00:00: daily. Hospit a 00 l valsartan-h Yes 1{tbl} QD Take 1 Me thodi ydrochlorot 5-[address] hiazide 00:00: mouth Hospita (DIOVAN-HCT 00 daily. l ) 320-12.5 mg per tablet meloxicam 2018-0 Yes 15mg QD Take 15 mg Me [facility] (MOBIC) 15 5-[address] mg tablet 00:00: daily. Hospit a 00 l valsartan-h Yes 1{tbl} QD Take 1 Me thodi ydrochlorot 5-[address] hiazide 00:00: mouth Hospita (DIOVAN-HCT 00 daily. l ) 320-12.5 mg per tablet citalopram 2018-0 Yes 20mg QD Take 20 mg M ethodi (CeleXA) 20 5-[address] MG tablet 00:00: daily. Hospit a 00 l meloxicam 2017-0 Yes 15mg QD Take 15 mg Me thodi (MOBIC) 15 5-[address] mg tablet 00:00: daily. Hospit a 00 l valsartan-h Yes 1{tbl} QD Take 1 Me thodi ydrochlorot 5-[address] hiazide 00:00: mouth Hospita (DIOVAN-HCT 00 daily. l ) 320-12.5 mg per tablet Immunizations Ordered Filled Immunization Date Status Comments [facility] e Immunization Name Name SARS-COV-2 COVID-19 2020-12-05 Completed Unive rsity of MODERNA 12+ YRS 00:00:00 [facility] VACCINE Branch SARS-COV-2 COVID-19 2020-12-05 Completed Unive [...] Unive rsity of MODERNA VACCINE 00:00:00 [facility] ical Branch SARS-COV-2 COVID-19 2020-10-27 Completed Unive rsity of MODERNA VACCINE 00:00:00 [facility] ical Branch SARS-COV-2 COVID-19 2020-10-27 Completed Unive rsity of MODERNA VACCINE 00:00:00 [facility] ical Branch SARS-COV-2 COVID-19 2020-10-27 Completed Unive rsity of MODERNA VACCINE 00:00:00 [facility] ical Branch SARS-COV-2 COVID-19 2020-10-27 Completed Unive rsity of MODERNA VACCINE 00:00:00 [facility] ical Branch SARS-COV-2 COVID-19 2020-10-27 Completed Unive rsity of MODERNA 12+ YRS 00:00:00 [facility] ical VACCINE Branch SARS-COV-2 COVID-19 2020-10-27 Completed Unive rsity of MODERNA 12+ YRS 00:00:00 [facility] ical VACCINE Branch SARS-COV-2 COVID-19 2020-10-27 Completed Unive rsity of MODERNA 12+ YRS 00:00:00 [facility] ical VACCINE Branch SARS-COV-2 COVID-19 2020-10-27 Completed Unive rsity of MODERNA 12+ YRS 00:00:00 [facility] ical VACCINE Branch SARS-COV-2 COVID-19 2020-10-27 Completed Unive rsity of MODERNA 12+ YRS 00:00:00 [facility] ical VACCINE Branch Influenza High Dose 2020-07-20 Completed Unive rsity of Quad 00:00:00 [facility] Influenza High Dose 2020-07-20 Completed Unive rsity of [place] 00:00:00 [facility] Influenza High Dose 2020-07-20 Completed Unive rsity of [place] 00:00:00 [facility] Influenza High Dose 2020-07-20 Completed Unive rsity of [place] 00:00:00 [facility] Influenza High Dose 2020-07-20 Completed Unive rsity of [place] 00:00:00 [facility] Influenza High Dose 2020-07-20 Completed Unive rsity of [place] 00:00:00 [facility] Influenza High Dose 2020-07-20 Completed Unive rsity of [place] 00:00:00 [facility] Influenza High Dose 2020-07-20 Completed Unive rsity of [place] 00:00:00 [facility] Influenza High Dose 2020-07-20 Completed Unive rsity of [place] 00:00:00 [facility] Influenza High Dose 2020-07-20 Completed Unive rsity of [place] 00:00:00 [facility] Influenza High Dose 2020-07-20 Completed Unive rsity of [place] 00:00:00 [facility] Influenza High Dose 2020-07-20 Completed Unive rsity of [place] 00:00:00 [facility] Influenza High Dose 2020-07-20 Completed Unive rsity of [place] 00:00:00 [facility] Influenza High Dose 2020-07-20 Completed Unive rsity of [place] 00:00:00 [facility] Influenza High Dose 2020-07-20 Completed Unive rsity of [place] 00:00:00 [facility] Influenza High Dose 2020-07-20 Completed Unive rsity of [place] 00:00:00 [facility] Influenza High Dose 2020-07-20 Completed Unive rsity of [place] 00:00:00 [facility] Influenza High Dose 2020-07-20 Completed Unive rsity of [place] 00:00:00 [facility] Influenza High Dose 2020-07-20 Completed Unive rsity of [place] 00:00:00 [facility] Influenza High Dose 2020-07-20 Completed Unive rsity of [place] 00:00:00 [facility] Influenza High Dose 2020-07-20 Completed Unive rsity of Quad 00:00:00 [facility] Zoster Vaccine 2020-06-12 Completed University of Recombinant 00:00:00 [facility] Zoster Vaccine 2020-06-12 Completed University of Recombinant 00:00:00 [facility] Zoster Vaccine 2020-06-12 Completed University of Recombinant 00:00:00 [facility] Zoster Vaccine 2020-06-12 Completed University of Recombinant 00:00:00 [facility] Zoster Vaccine 2020-06-12 Completed University of Recombinant 00:00:00 [facility] Zoster Vaccine 2020-06-12 Completed University of Recombinant 00:00:00 [facility] Zoster Vaccine 2020-06-12 Completed University of Recombinant 00:00:00 [facility] Zoster Vaccine 2020-06-12 Completed University of Recombinant 00:00:00 [facility] Zoster Vaccine 2020-06-12 Completed University of Recombinant 00:00:00 [facility] Zoster Vaccine 2020-06-12 Completed University of Recombinant 00:00:00 [facility] Zoster Vaccine 2020-06-12 Completed University of Recombinant 00:00:00 [facility] Zoster Vaccine 2020-06-12 Completed University of Recombinant 00:00:00 [facility] Zoster Vaccine 2020-06-12 Completed University of Recombinant 00:00:00 [facility] Zoster Vaccine 2020-06-12 Completed University of Recombinant 00:00:00 [facility] Zoster Vaccine 2020-06-12 Completed University of Recombinant 00:00:00 [facility] Zoster Vaccine 2020-06-12 Completed University of Recombinant 00:00:00 [facility] Zoster Vaccine 2020-06-12 Completed University of Recombinant 00:00:00 [facility] Zoster Vaccine 2020-06-12 Completed University of Recombinant 00:00:00 [facility] Zoster Vaccine 2020-06-12 Completed University of Recombinant 00:00:00 [facility] Zoster Vaccine 2020-06-12 Completed University of Recombinant 00:00:00 [facility] Zoster Vaccine 2020-06-12 Completed University of Recombinant 00:00:00 [facility] Zoster Vaccine 2020-03-19 Completed University of Recombinant 00:00:00 [facility] Zoster Vaccine 2020-03-19 Completed University of Recombinant 00:00:00 [facility] Zoster Vaccine 2020-03-19 Completed University of Recombinant 00:00:00 [facility] Zoster Vaccine 2020-03-19 Completed University of Recombinant 00:00:00 [facility] Zoster Vaccine 2020-03-19 Completed University of Recombinant 00:00:00 [facility] Zoster Vaccine 2020-03-19 Completed University of Recombinant 00:00:00 [facility] Zoster Vaccine 2020-03-19 Completed University of Recombinant 00:00:00 [facility] Zoster Vaccine 2020-03-19 Completed University of Recombinant 00:00:00 [facility] Zoster Vaccine 2020-03-19 Completed University of Recombinant 00:00:00 [facility] Zoster Vaccine 2020-03-19 Completed University of Recombinant 00:00:00 [facility] Zoster Vaccine 2020-03-19 Completed University of Recombinant 00:00:00 [facility] Zoster Vaccine 2020-03-19 Completed University of Recombinant 00:00:00 [facility] Zoster Vaccine 2020-03-19 Completed University of Recombinant 00:00:00 [facility] Zoster Vaccine 2020-03-19 Completed University of Recombinant 00:00:00 [facility] Zoster Vaccine 2020-03-19 Completed University of Recombinant 00:00:00 [facility] Zoster Vaccine 2020-03-19 Completed University of Recombinant 00:00:00 [facility] Zoster Vaccine 2020-03-19 Completed University of Recombinant 00:00:00 [facility] Zoster Vaccine 2020-03-19 Completed University of Recombinant 00:00:00 [facility] Zoster Vaccine 2020-03-19 Completed University of Recombinant 00:00:00 [facility] Zoster Vaccine 2020-03-19 Completed University of Recombinant 00:00:00 [facility] Zoster Vaccine 2020-03-19 Completed University of Recombinant 00:00:00 [facility] Pneumococcal 13 2019-10-04 Completed Universit y of Conjugate, PCV13 00:00:00 [facility] dical (Prevnar 13) Branch Pneumococcal 13 2019-10-04 Completed Universit y of Conjugate, PCV13 00:00:00 [place] [facility] (Prevnar 13) Branch Pneumococcal 13 2019-10-04 Completed Universit y of Conjugate, PCV13 00:00:00 [place] [facility] (Prevnar 13) Branch Pneumococcal 13 2019-10-04 Completed Universit y of Conjugate, PCV13 00:00:00 [place] [facility] (Prevnar 13) Branch Pneumococcal 13 2019-10-04 Completed Universit y of Conjugate, PCV13 00:00:00 [place] [facility] (Prevnar 13) Branch Pneumococcal 13 2019-10-04 Completed Universit y of Conjugate, PCV13 00:00:00 [place] [facility] (Prevnar 13) Branch Pneumococcal 13 2019-10-04 Completed Universit y of Conjugate, PCV13 00:00:00 [place] [facility] (Prevnar 13) Branch Pneumococcal 13 2019-10-04 Completed Universit y of Conjugate, PCV13 00:00:00 [place] [facility] (Prevnar 13) Branch Pneumococcal 13 [...] Dose 2018-09-11 Completed Unive rsity of 00:00:00 [facility] Influenza High Dose 2018-09-11 Completed Unive rsity of 00:00:00 [facility] Influenza High Dose 2018-09-11 Completed Unive rsity of 00:00:00 [facility] Influenza High Dose 2018-09-11 Completed Unive rsity of 00:00:00 [facility] Influenza High Dose 2018-09-11 Completed Unive rsity of 00:00:00 [facility] Influenza High Dose 2018-09-11 Completed Unive rsity of 00:00:00 [facility] Influenza High Dose 2018-09-11 Completed Unive rsity of 00:00:00 [facility] Influenza High Dose 2018-09-11 Completed Unive rsity of 00:00:00 [facility] Influenza High Dose 2018-09-11 Completed Unive rsity of 00:00:00 [facility] Influenza High Dose 2018-09-11 Completed Unive rsity of 00:00:00 [facility] Influenza High Dose 2018-09-11 Completed Unive rsity of 00:00:00 [facility] Influenza High Dose 2018-09-11 Completed Unive rsity of 00:00:00 [facility] Influenza High Dose 2018-09-11 Completed Unive rsity of 00:00:00 [facility] Influenza High Dose 2018-09-11 Completed Unive rsity of 00:00:00 [facility] Influenza High Dose 2018-09-11 Completed Unive rsity of 00:00:00 [facility] Influenza High Dose 2018-09-11 Completed Unive rsity of 00:00:00 [facility] Influenza High Dose 2018-09-11 Completed Unive rsity of 00:00:00 [facility] Influenza High Dose 2018-09-11 Completed Unive rsity of 00:00:00 [facility] Influenza High Dose 2018-09-11 Completed Unive rsity of 00:00:00 [facility] Influenza High Dose 2018-09-11 Completed Unive rsity of 00:00:00 [facility] Influenza High Dose 2018-09-11 Completed Unive rsity of 00:00:00 [facility] Vital Signs Vital Name Observation Time Observation Value Comments Source Systolic blood 2022-09-08 20:28:00 145 mm[Hg] Univer sity of pressure [facility] Diastolic blood 2022-09-08 20:28:00 73 mm[Hg] Unive rsity of pressure [facility] Heart rate 2022-09-08 20:27:00 65 /min [facility] Body temperature 2022-09-08 20:27:00 37.44 [facility] [facility] ersity of [facility] Body height 2022-09-08 20:27:00 160 cm [facility] Body weight 2022-09-08 20:27:00 75.297 kg [facility] BMI 2022-09-08 20:27:00 29.41 kg/m2 [facility] Procedures Procedure Date / Time Performing Clinician Source Performed MEDICAL RELEASE/CLEARANCE 2023-01-28 05:01:00 Doctor Gabbie, [facility] FORMS [facility] EXTERNAL MAMMOGRAM 2023-01-25 00:00:00 Doctor Gabbie, [facility] EXTERNAL PROVIDER RECORDS 2022-10-28 06:01:00 Doctor Unassigned, [facility] EXTERNAL PROVIDER RECORDS 2022-10-12 06:01:00 Doctor Unassigned, [facility] EXTERNAL PROVIDER RECORDS 2022-08-20 05:01:00 Doctor Unassigned, [facility] PATIENT FINANCIAL 2022-03-18 05:01:00 Doctor Gabbie [facility] RESPONSIBILITY - ALL [facility] FORMS PATIENT FINANCIAL 2022-02-18 05:01:00 Doctor Unachin, [facility] RESPONSIBILITY - ALL [facility] FORMS REFERRAL- 2021-12-24 06:01:00 [facility]PONSE [facility] Plan of Care Planned Activity Planned Date Details Comments Source Future Scheduled 2023-03-11 COVID-19 VACCINE (#1) [facility] Test 19:10:23 [code = COVID-19 VACCINE (#1)] Future Scheduled 2023-03-11 BREAST CANCER [facility] Test 19:10:23 SCREENING [code = BREAST CANCER SCREENING] Future Scheduled 2023-03-11 COLONOSCOPY SCREENING [facility] Test 19:10:23 [code = COLONOSCOPY SCREENING] Future Scheduled 2023-03-11 SHINGLES VACCINES (1 Met [facility] Test 19:10:23 of 2) [code = SHINGLES VACCINES (1 of 2)] Future Scheduled 2023-03-11 65+ [facility]AL [facility] 19:10:23 VACCINE (1 - PCV) [code = 65+ PNEUMOCOCCAL VACCINE (1 - PCV)] Future Scheduled 2023-03-11 INFLUENZA VACCINE [facility] Test 19:10:23 [code = INFLUENZA VACCINE] Future Scheduled 2023-03-08 COVID-19 VACCINE (#1) [facility] Test 14:00:52 [code = COVID-19 VACCINE (#1)] Future Scheduled 2023-03-08 BREAST CANCER [facility] Test 14:00:52 SCREENING [code = BREAST CANCER SCREENING] Future Scheduled 2023-03-08 COLONOSCOPY SCREENING [facility] Test 14:00:52 [code = COLONOSCOPY SCREENING] Future Scheduled 2023-03-08 SHINGLES VACCINES (1 Met [facility] Test 14:00:52 of 2) [code = SHINGLES VACCINES (1 of 2)] Future Scheduled 2023-03-08 65+ [facility] 14:00:52 VACCINE (1 - PCV) [code = 65+ PNEUMOCOCCAL VACCINE (1 - PCV)] Future Scheduled 2023-03-08 INFLUENZA VACCINE [facility] Test 14:00:52 [code = INFLUENZA VACCINE] Future Scheduled 2023-01-29 INFLUENZA VACCINE [facility] Test 08:58:38 [code = INFLUENZA VACCINE] Future Scheduled 2023-01-29 COVID-19 VACCINE (#1) [facility] Test 08:58:38 [code = COVID-19 VACCINE (#1)] Future Scheduled 2023-01-29 BREAST CANCER [facility] Test 08:58:38 SCREENING [code = BREAST CANCER SCREENING] Future Scheduled 2023-01-29 COLONOSCOPY SCREENING [facility] Test 08:58:38 [code = COLONOSCOPY SCREENING] Future Scheduled 2023-01-29 SHINGLES VACCINES (1 Met [facility] Test 08:58:38 of 2) [code = SHINGLES VACCINES (1 of 2)] Future Scheduled 2023-01-29 65+ [facility]CCAL [facility] Test 08:58:38 VACCINE (1 - PCV) [code = 65+ PNEUMOCOCCAL VACCINE (1 - PCV)] Future Scheduled 2022-07-01 HEPATITIS B VACCINES Met [facility] Test 17:07:46 (1 of 3 - 3-dose series) [code = HEPATITIS B VACCINES (1 of 3 - 3-dose series)] Future Scheduled 2022-07-01 COVID-19 VACCINE (#1) [facility] Test 17:07:46 [code = COVID-19 VACCINE (#1)] Future Scheduled 2022-07-01 BREAST CANCER [facility] Test 17:07:46 SCREENING [code = BREAST CANCER SCREENING] Future Scheduled 2022-07-01 COLONOSCOPY SCREENING [facility] Test 17:07:46 [code = COLONOSCOPY SCREENING] Future Scheduled 2022-07-01 SHINGLES VACCINES (1 Met [facility] Test 17:07:46 of 2) [code = SHINGLES VACCINES (1 of 2)] Future Scheduled 2022-07-01 65+ PNEUMOCOCCAL [facility] Test 17:07:46 VACCINE (1 - PCV) [code = 65+ PNEUMOCOCCAL VACCINE (1 - PCV)] Future Scheduled 2022-07-01 INFLUENZA VACCINE [facility] Test 17:07:46 [code = INFLUENZA VACCINE] Encounters Start End Encounter Admission Attending Care Care Encounter Source Date/Time Date/Time Type Type Clinicians Facility Department ID 2022-12-27 Outpatient Thuy, [facility] [id number] Common 12:13:01 Yash [id number] [facility] 2022-10-29 Outpatient [facility] [id number] Common 09:44:02 Yash [facility] 2022-01-06 Outpatient [facility] [id number] Common 09:53:04 [facility] 2019-12-04 Inpatient HCACL MARLEY [id number] [facility] 19:27:00 81 [facility] 2023-03-08 2023-03-08 Telephone [facility] [id number] Univers 00:00:00 00:00:00 [facility] [id number] [facility] [id number] Gen as [place]?BLEA [id number] [address] OFFICE [facility] 2023-03-07 2023-03-07 [address]840.114 [id number] Univers 00:00:00 00:00:00 [facility] [id number] it y of Edward [place] 4.2.7.2.686 Gen as IRVING?BLEA [id number] [address] OFFICE [facility] 2023-03-07 2023-03-07 [facility] [id number] Univers 00:00:00 00:00:00 [facility] [id number] it y of Edward UMANG [id number] Gen as [place]?BLEA [id number] [address] OFFICE [facility] 2023-03-02 2023-03-02 Telephone [facility] [id number] Univers 00:00:00 00:00:00 [facility] [id number] it y of Eddevika HECK 4.2.7.2.686 Gen as [place]?BLEA [id number] [address] OFFICE [facility] 2023-01-28 2023-01-28 Orders Doctor SATISH [id number] Univers 00:00:00 00:00:00 Only Unassigned, [place] [id number] ity of [facility] 4.2.7.2.686 Gen as [id number] [address] 2023-01-27 2023-01-27 Telephone [facility] 1.2.840.114 [id number] Univers 00:00:00 00:00:00 [facility] [id number] it y of Eddevika HECK 4.2.7.2.686 Gen as [place]?BLEA [id number] [address] 2023-01-25 2023-01-25 Outpatient Moses [facility] MALENA [id number] [facility] 12:00:00 12:00:00 Yash [facility] 2023-01-09 2023-01-09 [facility] [id number] Univers 00:00:00 00:00:00 Yash [place] [id number] i ty of Russ [place]2.[place] [id number] [address] 2022-11-22 2022-11-22 [facility] 1.2.840.114 [id number] Univers 00:00:00 00:00:00 Yash [place] [id number] i ty of [place]2.[place] [id number] [address] 2022-11-10 2022-11-10 Outpatient R [facility] [id number] Univers 11:00:00 11:00:00 YASH ity of [facility] 2022-11-02 2022-11-02 Refill [facility] 1.2.840.114 [id number] Univers 00:00:00 00:00:00 Yash HEALTH [id number] it y of Eddevika HECK 4.2.7.2.686 Gen as [place]?BLEA [id number] [address] OFFICE [facility] 2022-10-28 2022-10-28 Orders Doctor COVARRUBIAS 1.2.840.114 [id number] Univers 00:00:00 00:00:00 Only Unassigned, [place] [id number] ity of [facility] 4.2.7.2.686 Gen as [id number] [address] 2022-10-12 2022-10-12 Orders Doctor SATISH 1.2.840.114 [id number] Univers 00:00:00 00:00:00 Only Unassigned, [place] [id number] ity of [facility] 4.2.7.2.686 Gen as [id number] [address] 2022-10-05 2022-10-05 Telephone [facility] 1.2.840.114 [id number] [facility] 00:00:00 00:00:00 [facility] [id number] it y of Eddevika [place] 4.2.7.2.686 Gen as [place]?BLEA [id number] [address] MEDICAL OFFICE [facility] 2022-09-08 2022-09-08 Office [facility] 1.2.840.114 [id number] Univers 14:30:00 15:00:00 Visit Yash HEALTH [id number] it y of Edward [place] 4.2.7.2.686 Gen as [place]?BLEA [id number] Ma cesar JUSTIN [address] [place] [address] MEDICAL OFFICE [facility] 2022-09-08 2022-09-08 Outpatient R MOSES [facility] [id number] Univers 14:30:00 14:30:00 YASH ity of [facility] 2022-08-25 2022-08-25 [facility] 1.2.840.114 [id number] Univers 00:00:00 00:00:00 Yash HECK 350.1.13.10 i ty of [place] [id number] [facility] DEBBI [address] [place] [address] 2022-08-20 2022-08-20 Orders Doctor SATISH 1.2.840.114 [id number] Univers 00:00:00 00:00:00 Only Unassigned, [place] [id number] ity of [facility] 4.2.7.2.686 Gen as [id number] [address] 2022-06-22 2022-06-22 [facility] 1.2.840.114 [id number] Univers 00:00:00 00:00:00 [facility] [id number] it y of Russ HECK 4.2.7.2.686 Gen as [place]?BLEA [id number] [address] MEDICAL OFFICE [facility] 2022-03-18 2022-03-18 Outpatient Derek GUIDO [facility] [id number] Univers 13:45:00 15:35:01 YU holm o f [facility] 2022-03-18 2022-03-18 Orders Doctor SATISH 1.2.840.114 [id number] Univers 00:00:00 00:00:00 Only Unassigned, [place] 350.1.13.10 ity of [facility] 4.2.7.2.686 Gen as [id number] [address] 2022-02-18 2022-02-18 Outpatient Derek [facility] [facility] [id number] Univers 14:00:00 14:36:22 YU rojas [facility] 2022-02-18 2022-02-18 Orders Doctor COVARRUBIAS 1.2.840.114 [id number] Univers 00:00:00 00:00:00 Only Unassigned, CLARKE 350.1.13.10 ity of [facility] 4.2.7.2.686 Gen as [phone] [place] [address] [place] 2022-02-09 2022-02-09 Outpatient Derek GUIDO [facility] [id number] Univers 15:30:00 15:30:00 YU alta rojas [facility] 2022-02-09 2022-02-09 [facility] [id number] Univers 15:30:00 15:30:00 YU rojas [facility] 2021-12-29 2021-12-29 Outpatient Derek GUIDO [facility] [id number] Univers 11:15:00 11:40:55 YU rojas [facility] 2021-12-29 2021-12-29 [facility] 1.2.840.114 [id number] Univers 11:15:00 11:40:55 Visit Yu IVERSON 350.1.13.10 ity of [place] 4.2.7.2.686 [facility] [phone] [address] [facility] 2021-12-29 2021-12-29 Outpatient Derek GUIDO [facility] [id number] Univers 11:15:00 11:40:55 YU rojas [facility] 2021-12-24 2021-12-24 Outpatient BETTIE Longo MALENA [id number] [facility] 08:00:00 08:00:00 Yash 21 [facility] 2021-12-24 2021-12-24 Orders Doctor COVARRUBIAS 1.2.840.114 [id number] Univers 00:00:00 00:00:00 Only Unassigned, CLARKE 350.1.13.10 ity of [facility] [facility] 4.2.7.2.686 Gen as [phone] [facility] [address] 2021-12-19 2021-12-19 Parul Lopes [facility] 1.2.840.114 [id number] Univers 00:00:00 00:00:00 Yash UMANG 350.1.13.10 i ty of [place]ENDE[place].2.7.2.686 [place] AMINATA[place] [phone] [address] 2021-12-16 2021-12-16 [facility] 1.2.850.898 [id number] Univers 00:00:00 00:00:00 Oralia A HEALTH 350.1.13.10 i ty of [place] 4.2.7.2.686 Gen as IRV[place]?BLEA [phone] [address] OFFICE [facility] 2021-12-11 2021-12-11 Telephone [facility] 1.2.858.642 [id number] Univers 00:00:00 00:00:00 Oralia A HEALTH 350.1.13.10 i ty of [place] 4.2.7.2.686 Gen as [place]?BLEA [id number] [address] OFFICE [facility] 2021-12-10 2021-12-10 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, 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 - Db [facility] 1.2.840.1 14 [id number] Univers 12:00:00 12:15:00 Visit Wilian Webberlie Kandis HEALTH 350.1.13.10 ity of [place] 4.2.7.2.686 Gen as IRV[place]?BLEA [id number] [address] OFFICE [facility] 2021-12-10 2021-12-10 Office [facility] 1.2.840.114 [id number] Univers 10:00:00 12:03:38 Visit Oralia Marquis HEALTH 350.1.13.10 i ty of [place] 4.2.7.2.686 Gen as IRVING?BLEA [phone] [address] OFFICE [facility] 2021-12-10 2021-12-10 Outpatient R AKBAR [facility] [id number] Univers 10:00:00 12:03:38 ORALIA itreid of [facility] 2021-12-10 2021-12-10 [facility] [id number] Univers 12:00:00 12:00:00 ORALIA holm [facility] 2021-12-10 2021-12-10 Outpatient Derek WEBBER [facility] [id number] Univers 10:00:00 10:00:00 ORALIA holm [facility] 2021-12-10 2021-12-10 Outpatient Derek LOPES [facility] [id number] Univers 09:45:00 09:45:00 YASH holm [facility] 2021-12-10 2021-12-10 Outpatient Derek LOPES [facility] [id number] Univers 09:45:00 09:45:00 YASH holm [facility] 2021-11-12 2021-11-12 [facility] [id number] Univers 10:36:06 23:59:00 YASH holm [facility] 2021-11-12 2021-11-12 [facility] 1.2.427.883 [id number] Univers 10:36:06 23:59:00 Encounter [facility] 350.1.13.10 ity of Russ [facility] 4.2.7.2.686 Gen as IRVING?BLEA [id number] Ma cesar JUSTIN [address] MEDICAL OFFICE [facility] 2021-11-12 2021-11-12 [facility] [id number] Univers 10:36:06 10:36:06 YASH holm [facility] 2021-11-12 2021-11-12 Office [facility] 1.2.840.114 [id number] Univers 09:45:00 10:35:24 Visit [facility] 350.1.13.10 it y of [place] 4.2.7.2.686 Gen as IRVING?BLEA [phone] Ma cesar JUSTIN [address] MEDICAL OFFICE [facility] 2021-11-12 2021-11-12 Outpatient [facility] [id number] Univers 09:45:00 09:45:00 YASH reid [facility] 2021-11-12 2021-11-12 [facility] 1.2.840.114 [id number] Univers 00:00:00 00:00:00 [facility] 350.1.13.10 it y of Russ HECK 4.2.7.2.686 Gen as [place]?BLEA [phone] Ma cesar JUSTIN [address] [place] [address] OFFICE [facility] 2021-11-03 2021-11-03 Orders Doctor SATISH 1.2.840.114 [id number] Univers 00:00:00 00:00:00 Only Unassigned, CLARKE 350.1.13.10 ity of [facility] [facility] 4.2.7.2.686 Gen as [id number] [address] 2021-10-14 2021-10-14 Office [facility] 1.2.840.114 [id number] Univers 10:00:00 10:15:00 Visit [facility] 350.1.13.10 it y of Russ HECK 4.2.7.2.686 Gen as IRV[place]?BLEA [phone] [address] OFFICE [facility] 2021-10-14 2021-10-14 Outpatient R [facility] [id number] Univers 10:00:00 10:00:00 [facility] 2021-10-14 2021-10-14 Outpatient R [facility] [id number] Univers 10:00:00 10:00:00 [facility] 2021-09-30 2021-09-30 Refill [facility] 1.2.840.114 [id number] Univers 00:00:00 00:00:00 Killian HECK 350.1.13.10 i ty of [place] [phone] Ma nestor[address] 2021-09-16 2021-09-16 Orders Doctor SATISH 1.2.840.114 [id number] Univers 00:00:00 00:00:00 Only Unassigned, CLARKE 350.1.13.10 ity of [facility] 4.2.7.2.686 Gen as [phone] [address] 2021-08-30 2021-08-30 [facility] 1.2.840.114 [id number] Univers 00:00:00 00:00:00 Yash HECK 350.1.13.10 i ty of [place].2.[place] [phone] Ma dical NAL [address] [place] [address] 2021-07-13 2021-07-13 [facility] 1.2.840.114 [id number] Univers 00:00:00 00:00:00 Killian Heck 350.1.13.10 i ty of [place]2.7.2.686 [place] [phone] Ma dical nal [address] [place] [address] 2021-06-06 2021-06-06 [facility] 1.2.840.114 [id number] Univers 00:00:00 00:00:00 Yash Heck 350.1.13.10 i ty of [place] 4.2.7.2.686 [place] [phone] Ma dical nal [address] [place] [address] 2021-04-16 2021-04-16 Office [facility] 1.2.840.114 [id number] Univers 10:15:45 10:30:[address] [facility] 350.1.13.10 it y of Russ Heck 4.2.7.2.686 Gen as Professio [phone] [address] Office [facility] 2021-04-16 2021-04-16 Outpatient R MOSES [facility] [id number] Univers 10:15:00 10:15:00 YASH holm of [facility] 2021-04-16 2021-04-16 [facility] 1.2.840.114 [id number] Univers 00:00:00 00:00:00 Yash Heck 350.1.13.10 i ty of [place].2.7.2.686 [place] [phone] Ma dicar nal [address] [place] [address] 2021-01-23 2021-01-23 [facility] 1.2.840.114 [id number] Univers 00:00:00 00:00:00 Yash Heck 350.1.13.10 i ty of [place].2.7.2.686 [place] [id number] Ma dical nal 044 [facility] 2021-01-02 2021-01-02 Patient [facility] 1.2.840.114 [id number] Univers 00:00:00 00:00:00 [facility] 350.1.13.10 i ty of [facility] [place].2.7.2.686 [place] [phone] [address] 2020-12-03 2020-12-03 [facility] [id number] Univers 13:45:00 13:45:00 YASH holm [facility] 2020-12-03 2020-12-03 Office [facility] 1.2.840.114 [id number] Univers 13:25:58 13:40:[address] [facility] 350.1.13.10 it y of Nicolásdev[place] 4.2.7.2.686 Gen as Professio [phone] [address] Office [facility] 2020-11-02 2020-11-02 [facility] 1.2.840.114 [id number] Univers 00:00:00 00:00:00 Yash Heck 350.1.13.10 i ty of [place].7.2.[place] [phone] Ma dical nal [address] [place] [address] 2020-10-15 2020-10-15 [facility] 1.2.840.114 [id number] Univers 00:00:00 00:00:00 Yash Heck 350.1.13.10 i ty of [place] 4.2.7.2.686 [place] [phone] Ma dical nal [address] [place] [address] 2020-10-15 2020-10-15 [facility] 1.2.840.114 [id number] 00:00:00 00:00:00 Yash Heck 350.1.13.10 Eddevika [place] 4.2.7.2.686 Professio [phone] [address] 2020-10-13 2020-10-13 Outpatient MUKUND Griffith, [facility] MALENA [id number] [facility] 12:00:00 12:00:00 Nena Fu [facility] 2020-09-23 2020-09-23 [facility] 1.2.840.114 [id number] Univers 00:00:00 00:00:00 Yash Heck 350.1.13.10 i ty of [place]2.7.2.[place] [phone] [address] 2020-09-23 2020-09-23 [facility] 1.2.840.114 [id number] 00:00:00 00:00:00 Yash Heck 350.1.13.10 [facility] 4.2.7.2.686 Professio [phone] [address] 2020-08-06 2020-08-06 [facility] 1.2.840.114 [id number] Univers 00:00:00 00:00:00 Yash Heck 350.1.13.10 i ty of devika [place]2.7.2.[place] [phone] [address] 2020-08-06 2020-08-06 [facility] 1.2.840.114 [id number] 00:00:00 00:00:00 Yash Heck 350.1.13.10 [place] 4.2.7.2.686 Professio [phone] [address] 2020-07-30 2020-07-30 Laboratory Only, [facility] [place] 1.2.840. 114 [id number] Univers 09:54:15 10:09:15 Only Marielena Christian 350.1.13.10 ity of [place] 4.2.7.2.[place] [id number] [address] 2020-07-30 2020-07-30 Laboratory Only, [facility] 1.2.840.114 [id number] 09:54:15 10:09:15 Only Test Umang 350.1.13.10 [place] 4.2.7.2.686 [place] [phone] 353 2020-07-30 2020-07-30 Outpatient R GINO, [facility] [id number] Univers 09:30:00 09:30:00 MARIELENA ity [facility] 2020-07-30 2020-07-30 Orders Doctor SATISH 1.2.840.114 [id number] Univers 00:00:00 00:00:00 Only Unassigned, CLARKE 350.1.13.10 ity of [facility] [facility] 4.2.7.2.686 Gen as [id number] [address] 2020-07-30 2020-07-30 Orders Doctor SATISH 1.2.840.114 [id number] 00:00:00 00:00:00 Only Unassigned, CLARKE 350.1.13.10 [place] [facility] 4.2.7.2.686 [phone] [facility] 2020-07-28 2020-07-28 [facility] 1.2.840.114 [id number] Univers 00:00:00 00:00:00 Yash Heck 350.1.13.10 i ty of [facility] 4.2.7.2.686 [place] [phone] Ma dic[address] 2020-07-28 2020-07-28 [facility] 1.2.840.114 [id number] 00:00:00 00:00:00 Yash Heck [facility].1.13.10 [facility] 4.2.7.2.686 Professio [phone] [address] 2020-05-14 2020-05-14 Pre Visit [facility] 1.2.840.114 [id number] Univers 00:00:00 00:00:00 Outreach Yash Heck 350.1.13.10 ity of devika [place] 4.2.7.2.[place] [phone] Ma dic[address] 2020-05-14 2020-05-14 Pre Visit [facility] 1.2.840.114 [id number] 00:00:00 00:00:00 Outreach Yash Heck 350.1.13.10 Eddevika M[place] 4.2.7.2.686 Professio [phone] [address] 2020-05-09 2020-05-09 [facility] 1.2.840.114 [id number] Univers 00:00:00 00:00:00 Yash Heck 350.1.13.10 i ty of [place].7.2.686 [place] [phone] [address] 2020-05-09 2020-05-09 [facility] 1.2.840.114 [id number] 00:00:00 00:00:00 Yash Heck 350.1.13.10 [place] 4.2.7.2.686 Professio [phone] [address] 2020-03-25 2020-03-25 Outpatient R [facility] [id number] Univers 13:15:00 13:15:00 YASH [facility] 2020-03-25 2020-03-25 [facility] 1.2.840.114 [id number] [facility] 07:51:56 08:06:56 ne Visit Yash Heck 350.1.13.10 ity of [place] 4.2.7.2.686 [place] [phone] [address] 2020-03-25 2020-03-25 [facility] 1.2.840.114 [id number] 07:51:56 08:06:56 ne Visit Yash Heck 350.1.13.10 [place] 4.2.7.2.686 Professio [phone] [address] 2019-10-04 2019-10-04 Outpatient R RADIOLOGY [facility] [id number] Univers 13:57:56 23:59:00 [facility] Test Description Test Time Test Comments Results Result Comments Source TROPONIN-I RAPID 2019-12-04 23:09:00 Test Item Value Reference Range Interpretation Comme nts TROPONIN-I RAPID (test code = 0.00 ng/mL 0.00-0.08 N Performed by certified printing machine operator TROPIRAP) at [facility] ed Ctr Negative: <= 0.08 Positiv [...] changes in trop onin levels characteristic of ME. - XR CHEST 2 [id number] 20:56:00 FAX: Genaro Soria MD [phone] [place]: St: PRE Name: KEENAN [facility]OPE[facility] : 1950 Age/S: 69/F [address] [place] [address] Unit #: [id number] Loc: [place] [address] Phys: Genaro Soria MD Acct: [id number] Dis Date: Status: PRE ER PHONE #: [phone] Exam Date: 12/04/20192047 FAX #: [phone] Reason: Chest Pain EXAMS: CPT CODE: [id number] XR CHEST 2 V 36487 Clinical Indication: ChestPain Comparison: None FINDINGS: The frontal and lateral chest radiographs show normal lung volumes. No interstitial or airspace opacities are seen. No pleural effusions are present. No pneumothorax is seen. The heart is normal in size. The trachea is midline. There are no clinically significant osseous abnormalities noted. IMPRESSION: No chest radiographic evidence of acute cardiopulmonary disease. SL: LANElielU-H at 2056 Reported and signed by: King Boothe M.D. CC: Genaro Soria MD Technologist: RT Sy(R) Trnscrd Date/Time/By: 12/04/2019 (2055) : By: MagaliLNV Orig Print D/T: S: 12/04/2019 (2058) PAGE 1 Signed ReportBASIC METABOLIC [id number] 20:49:00 Test Item Value Reference Range Interpretation [...] 9.3 mg/dL 8.0-10.5 N CA) BASIC METABOLIC [id number] 20:46:00 Test Item Value Reference Range Interpretation [...] CA) 9.3 mg/dL 8.0-10.5 N CBC W/AUTO [id number] 20:36:00 Test Item Value Reference Range Interpretation [...] REQUIRED (test code NO = MDIFF) TROPONIN-I [id number] 20:09:00 Test Item Value Reference Range Interpretation Comments TROPONIN-I RAPID 0.00 ng/mL 0.00-0.08 N Performed b y certified (test code = printing machine operator at [facility] TROPIRAP) Ctr Negative: < = 0.08 Positive: [...] changes in trop onin levels characteristic of ME. UR COMPREHENSIVE DRUG [id number] 21:15:00 Test Item Value Reference Range Interpretation Comments DRUGS DETECTED IN URINE (test code = DRUGTU) ALCOHOL ETHYL [id number] 21:15:00 Test Item Value Reference Range Interpretation Comments ALCOHOL ETHYL BLOOD (test code = MRO ALCETH) UR COMPREHENSIVE DRUG [id number] 21:15:00 Test Item Value Reference Range Interpretation Comments DRUGS DETECTED IN URINE [place] [facility] [place]test code = DRUGTU) ALCOHOL ETHYL [id number] 21:15:00 Test Item Value Reference Range Interpretation Comments ALCOHOL ETHYL BLOOD (test code = MRO ALCETH)
[2023-03-11 19:41] LABS: Absolute Lymphocytes (CBC) 1.8 K/uL (0.7-4.9); Hematocrit 33.6 % (36.0-45.0); Lymphocytes % 22.5 % (15.3-44.8); MCV 95.8 fL (80-100); MPV 9.1 fL (7.6-11.3); RBC Red Blood Cell Count 3.51 M/uL (3.86-4.86)
[2023-03-11 20:01] LABS: Protime INR 1.18
--- NOTE | 2023-03-11 20:05 | RAD REPORT ---
EXAM DESCRIPTION: RAD - Chest Single View - 03/11/2023 7:59 pm CLINICAL HISTORY: CHEST PAIN Chest pain. COMPARISON: Chest Pa And Lat (2 Views) dated 03/03/2023; Chest Pa And Lat (2 Views) dated 08/23/2022; Chest Single View dated 08/10/2022 FINDINGS: Portable technique limits examination quality. The lungs are grossly clear. The heart is normal in size. No displaced fractures. IMPRESSION: No acute intrathoracic process suspected.
[2023-03-11 20:19] LABS: BUN Blood Urea Nitrogen 9 mg/dL (7-18); Bicarbonate 36 mEq/L (21-32); Glucose Level 139 mg/dL (74-106); Potassium 3.7 mEq/L (3.5-5.1); Sodium Level 131 mEq/L (136-145)
[2023-03-11 20:20] LABS: ALT/SGPT 24 U/L (13-56); AST/SGOT 28 U/L (15-37); Albumin 3.4 g/dL (3.4-5.0); Alkaline Phosphatase 71 U/L (45-117); Bilirubin Direct < 0.1 mg/dL (0-0.2); Bilirubin Indirect, Calculated ND (0.2-0.8); Bilirubin Total 0.3 mg/dL (0.2-1.0); Glomerular Filtration Rate 94 ml/min (=/>90); Magnesium 2.2 mg/dL (1.6-2.4); NT PRO-BNP 666 pg/mL (<125); Troponin High Sensitivity 20.4 pg/mL (<58.9)
--- NOTE | 2023-03-11 20:50 | RAD REPORT ---
EXAM DESCRIPTION: CT - Chest For Pe Angio - 03/11/2023 8:38 pm CLINICAL HISTORY: Chest pain. CHEST PAIN COMPARISON: Chest For Pe Angio dated 08/10/2022 TECHNIQUE: CT angiogram of the pulmonary arteries was performed with MIP. All CT scans are performed using dose optimization technique as appropriate and may include automated exposure control or mA/KV adjustment according to patient size. FINDINGS: No evidence of pulmonary thromboembolism. No acute aortic finding demonstrated. The lungs are clear. No significant pericardial or pleural fluid. No concerning bony finding. IMPRESSION: No evidence of pulmonary thromboembolism. No acute lung findings.
[2023-03-11] MEDS ORDERED: ONDANSETRON 4 MG/2 ML VIAL ONE (20:55)
[2023-03-11] MEDS ORDERED: HYDROCODONE/APAP 10/325 TAB ONE (20:55)
--- NOTE | 2023-03-11 23:13 | ER ---
Nurse's Notes [facility] Name: Griselda Nieto Age: 73 yrs Sex: Female : 1950 Arrival Date: 03/11/2023 Time: 19:07 Bed 5 Private MD: Diagnosis: Chest pain, unspecified Presentation: 03/11 19:23 Chief complaint: Patient's son or daughter states: "She started having chest pain vc1 around 6:30, she became a little short of breath and confused at the time.". Chief complaint: Patient states: "I started having chest pain in the center of my chest that radiated between my shoulder blades.". Coronavirus screen: Vaccine status: Patient reports receiving the 2nd dose of the covid vaccine. all boosters Client denies travel out of the [place] in the last 14 days. At this time, the client does not indicate any symptoms associated with coronavirus-19. Ebola Screen: Patient negative for fever greater than or equal to 101.5 degrees Fahrenheit, and additional compatible Ebola Virus Disease symptoms Patient denies exposure to infectious person. Patient denies travel to an Ebola-affected area in the 21 days before illness onset. No symptoms or risks identified at this time. Initial Sepsis Screen: Does the patient meet any 2 criteria? No. Patient's initial sepsis screen is negative. Does the patient have a suspected source of infection? No. Patient's initial sepsis screen is negative. Risk Assessment: Do you want to hurt yourself or someone else? Patient reports no desire to harm self or others. Note knee replacement done here on tuesday. Onset of symptoms was March 11, 2023 at 18:30. 19:23 Method Of Arrival: Wheelchair vc1 19:23 Acuity: AMBROCIO 2 vc1 Triage Assessment: 19:32 General: Appears in no apparent distress. uncomfortable, Behavior is calm, cooperative, vc1 appropriate for age. Pain: Complains of pain in mid-sternal area Pain radiates to between shoulder blades Pain currently is 0 out of 10 on a pain scale. Quality of pain is described as sharp. EENT: No deficits noted. No signs and/or symptoms were reported regarding the EENT system. Neuro: Level of Consciousness is awake, alert, obeys commands, Oriented to person, place, time, situation, Appropriate for age. Cardiovascular: Reports chest pain, shortness of breath, Rhythm is sinus rhythm Chest pain is described as severe, quality is sharp, is located in substernal area radiates between shoulder blades. Respiratory: Airway is patent Respiratory effort is even, unlabored, Respiratory pattern is regular, symmetrical. GI: No deficits noted. No signs and/or symptoms were reported involving the gastrointestinal system. : No deficits noted. No signs and/or symptoms were reported regarding the genitourinary system. Derm: No deficits noted. No signs and/or symptoms reported regarding the dermatologic system. Musculoskeletal: Reports pain in right knee. Historical: - Allergies: 19:26 Demerol; vc1 - Home Meds: 19:26 amlodipine oral [Active]; citalopram oral [Active]; Lipitor Oral [Active]; Potassium vc1 Chloride Oral [Active]; valsartan-hydrochlorothiazide Oral [Active]; [place] 7.5 mg Oral 1 tablet every 6 hours [Active]; meloxicam oral [Active]; carvedilol oral [Active]; Symbicort inhalation [Active]; Albuterol Inhl [Active]; Spiriva Respimat inhalation [Active]; azelastine nasal [Active]; pantoprazole oral [Active]; Famotidine Oral [Active]; Eliquis 2.5 mg oral tablet 2 times per day [Active]; - PMHx: 19:26 Asthma; Hyperlipidemia; Hypertension; Osteoarthritis; Depressive disorder; Hard of vc1 Hearing; - PSHx: 19:26 Appendectomy; breast biopsy; salpingectomy; Tonsillectomy; vc1 - Immunization history:: Adult Immunizations up to date, Client reports receiving the 2nd dose of the Covid vaccine. - Social history:: Smoking status: Patient denies any tobacco usage or history of. Screenin:10 [facility] ED Fall Risk Assessment (Adult) History of falling in the last 3 months, ha1 including since admission No falls in past 3 months (0 pts) Confusion or Disorientation No (0 pts) Intoxicated or Sedated No (0 pts) Impaired Gait Yes (1 pt) Mobility Assist Device Used Yes (1 pt) Altered Elimination No (0 pt) Score/Fall Risk Level 3 or more points = High Risk Oriented to surroundings, Maintained a safe environment, Educated pt \\T\\ family on fall prevention, incl call for assistance when getting out of bed, Hourly rounding (assess needs \\T\\ fall precautionary measures) done. Abuse screen: Denies threats or abuse. Denies injuries from another. Nutritional screening: No deficits noted. On. Tuberculosis screening: No symptoms or risk factors identified. Assessment: 19:10 General: Appears uncomfortable, Behavior is calm, cooperative. Pain: Complains of pain ha1 in chest and right knee Pain does not radiate. Pain currently is 7 out of 10 on a pain scale. Quality of pain is described as pressure, Pain began suddenly, 1 hour ago. Is intermittent. Neuro: Level of Consciousness is awake, alert, obeys commands, Oriented to person, place, time, situation. Cardiovascular: Reports chest pain, Heart tones S1 S2 present Patient's skin is warm and dry. Rhythm is sinus rhythm. Respiratory: Airway is patent Respiratory effort is even, unlabored, Respiratory pattern is regular, symmetrical. GI: No signs and/or symptoms were reported involving the gastrointestinal system. Abdomen is round non-distended. Derm: Skin is pink, warm \\T\\ dry. Musculoskeletal: Circulation, motion, and sensation intact. Reports pain in right knee having knee surgery on Tuesday. 19:34 Pain: Pain began suddenly, 1 hour ago. Noted to be confused. vc1 20:15 Reassessment: Patient and/or family updated on plan of care and expected duration. Pain ha1 level reassessed. Patient is alert, oriented x 3, equal unlabored respirations, skin warm/dry/pink. going to CT. 21:20 Reassessment: Patient and/or family updated on plan of care and expected duration. Pain ha1 level reassessed. Patient is alert, oriented x 3, equal unlabored respirations, skin warm/dry/pink. pain 6/10. Vital Signs: 19:23 BP 144 / 71; Pulse 65; Resp 11; Temp 98; Pulse Ox 95% on R/A; Weight 73.48 kg; Height 5 vc1 ft. 2 in. ; Pain 0/10; 19:37 BP 127 / 66; Pulse 64; Resp 18 S; Pulse Ox 98% on R/A; ha1 20:22 BP 127 / 66; Pulse 64; Resp 20; Pulse Ox 94% on R/A; kd3 21:25 BP 144 / 66; Pulse 64; Resp 18 S; Pulse Ox 96% on R/A; ha1 23:09 BP 118 / 65; Pulse 63; Resp 13; Pulse Ox 93% on R/A; kd3 19:23 Body Mass Index 29.63 (73.48 kg, 157.48 cm) vc1 19:23 Pain Scale: Adult vc1 ED Course: 19:09 Patient arrived in ED. [id number] 19:10 Haydee Clarke FNP-C [facility]. kb 19:10 Tony Love MD is Attending Physician. kb 19:26 Triage completed. vc1 19:32 Deidre Russell, RN is Primary Nurse. ha1 19:34 Arm band placed on left wrist. vc1 19:35 Patient has correct armband on for positive identification. Placed in gown. Bed in low vc1 position. Call light in reach. Adult w/ patient. Client placed on continuous cardiac and pulse oximetry monitoring. NIBP monitoring applied. 19:35 Patient maintains SpO2 saturation greater than 95% on room air. vc1 19:39 Basic Metabolic Panel Sent. ha1 19:39 CBC with Diff Sent. ha1 19:39 D-Dimer Sent. ha1 19:39 LFT's Sent. ha1 19:40 Magnesium Sent. ha1 19:40 NT PRO-BNP Sent. ha1 19:40 PT-INR Sent. ha1 19:40 Troponin HS Sent. ha1 19:42 Inserted saline lock: 22 gauge in left antecubital area, using aseptic technique. oe 19:59 XRAY Chest (1 view) In Process Unspecified. EDMS 20:40 CT Chest For PE Angio In Process Unspecified. EDMS 23:41 IV discontinued, intact, bleeding controlled, No redness/swelling at site. Pressure pf1 dressing applied. 23:41 No provider procedures requiring assistance completed. pf1 Administered Medications: 20:53 Drug: Ondansetron IVP 4 mg Route: IVP; Site: left antecubital; kd3 21:50 Follow up: Response: No adverse reaction; Marked relief of symptoms pf1 20:54 Drug: [place] PO 10 mg-325 mg 1 tabs Route: PO; kd3 21:50 Follow up: Response: No adverse reaction; Marked relief of symptoms; Pain is decreased; pf1 RASS: Alert and Calm (0) Medication: 19:35 VIS not applicable for this client. vc1 Outcome: 23:12 Discharge ordered by . kb 23:40 Discharged to home via wheelchair, with family. pf1 23:40 Condition: improved 23:40 Discharge instructions given to patient, Instructed on discharge instructions, follow up and referral plans. Demonstrated understanding of instructions, follow-up care. 23:41 Patient left the ED. pf1 Signatures: Dispatcher [employer] EDMS Haydee Clarke, DISABILITY BENEFITS SPECIALIST-C DISABILITY BENEFITS SPECIALIST-CkCharly Mcneal Jennifer [id number] Ayleen Cervantes RN RN kd3 Tiarra Samlon RN RN vc1 Deidre Russell RN RN ha1 Emily Dewitt RN RN pf1
--- NOTE | 2023-03-11 23:13 | EDPHYS ---
Physician Documentation [facility] Name: Griselda Nieto Age: 73 yrs Sex: Female : 1950 Arrival Date: 03/11/2023 Time: 19:07 Bed 5 Private MD: ED Physician Tony Love HPI: 03/11 21:05 This 73 yrs old Female presents to ER via Wheelchair with complaints of Chest Pain, kb Chest Tightness, Neck and Upper Back Pain, RT KNEE REPLACEMENT ON 03/08/23. PT HAS H/O LOW POTASSIUM. 21:05 The patient or guardian reports chest pain that is located primarily in the substernal kb area, anterior chest wall, left. Onset: at 18:20. The pain does not radiate. Associated signs and symptoms: Pertinent positives: shortness of breath. The chest pain is described as aching. Duration: The patient or guardian reports a single episode, that is now resolved. Modifying factors: The symptoms are alleviated by nothing. the symptoms are aggravated by nothing. Severity of pain: At its worst the pain was mild moderate in the emergency department the pain has resolved. The patient has experienced similar episodes in the past. The patient has been recently seen by a physician:. Pt reports chest pain that started at 1820 and has now resolved. States this happens at times when her potassium is low. States she was just discharged after having a knee replacement and her potassium was 3.2 upon discharge. . Historical: - Allergies: 19:26 Demerol; vc1 - Home Meds: 19:26 amlodipine oral [Active]; citalopram oral [Active]; Lipitor Oral [Active]; Potassium vc1 Chloride Oral [Active]; valsartan-hydrochlorothiazide Oral [Active]; [place] 7.5 mg Oral 1 tablet every 6 hours [Active]; meloxicam oral [Active]; carvedilol oral [Active]; Symbicort inhalation [Active]; Albuterol Inhl [Active]; Spiriva Respimat inhalation [Active]; azelastine nasal [Active]; pantoprazole oral [Active]; Famotidine Oral [Active]; Eliquis 2.5 mg oral tablet 2 times per day [Active]; - PMHx: 19:26 Asthma; Hyperlipidemia; Hypertension; Osteoarthritis; Depressive disorder; Hard of vc1 Hearing; - PSHx: 19:26 Appendectomy; breast biopsy; salpingectomy; Tonsillectomy; vc1 - Immunization history:: Adult Immunizations up to date, Client reports receiving the 2nd dose of the Covid vaccine. - Social history:: Smoking status: Patient denies any tobacco usage or history of. ROS: 21:05 Constitutional: Negative for fever, chills, and weight loss. kb 21:05 Cardiovascular: Positive for chest pain, Negative for edema, orthopnea, palpitations, paroxysmal nocturnal dyspnea. 21:05 Respiratory: Positive for shortness of breath. 21:05 All other systems are negative. Exam: 21:05 Constitutional: This is a well developed, well nourished patient who is awake, alert, kb and in no acute distress. Head/Face: Normocephalic, atraumatic. ENT: Moist Mucous membranes Cardiovascular: Regular rate and rhythm with a normal S1 and S2. No gallops, murmurs, or rubs. No pulse deficits. Respiratory: Respirations even and unlabored. No increased work of breathing. Talking in full sentences Abdomen/GI: Soft, non-tender. No distention Skin: Warm, dry with normal turgor. Normal color. MS/ Extremity: Pulses equal, no cyanosis. Neurovascular intact. Full, normal range of motion. Neuro: Awake and alert, GCS 15, oriented to person, place, time, and situation. Moves all extremities. Normal gait. 22:23 ECG was reviewed by the Attending Physician. kb Vital Signs: 19:23 BP 144 / 71; Pulse 65; Resp 11; Temp 98; Pulse Ox 95% on R/A; Weight 73.48 kg; Height 5 vc1 ft. 2 in. ; Pain 0/10; 19:37 BP 127 / 66; Pulse 64; Resp 18 S; Pulse Ox 98% on R/A; ha1 20:22 BP 127 / 66; Pulse 64; Resp 20; Pulse Ox 94% on R/A; kd3 21:25 BP 144 / 66; Pulse 64; Resp 18 S; Pulse Ox 96% on R/A; ha1 23:09 BP 118 / 65; Pulse 63; Resp 13; Pulse Ox 93% on R/A; kd3 19:23 Body Mass Index 29.63 (73.48 kg, 157.48 cm) vc1 19:23 Pain Scale: Adult vc1 MDM: 19:11 Patient medically screened. kb 21:07 Data reviewed: vital signs, nurses notes. Consideration of Admission/Observation kb Escalation of care including admission/observation considered. admission considered, but pt prefers to go home. Will check a second troponin at 2230 prior to discharge. . External Records Reviewed: Heart Cath report from 07/2022 reviewed. 21:10 Differential diagnosis: abnormal EKG, acute myocardial infarction, chest wall pain, kb pulmonary embolus. 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 03/11 19:10 Order name: Basic Metabolic Panel; Complete Time: 20:25 kb 03/11 19:10 Order name: CBC with Diff; Complete Time: 19:58 kb 03/11 19:10 Order name: D-Dimer; Complete Time: 20:10 kb 03/11 19:10 Order name: LFT's; Complete Time: 20:25 kb 03/11 19:10 Order name: Magnesium; Complete Time: 20:25 kb 03/11 19:10 Order name: NT PRO-BNP; Complete Time: 20:25 kb 03/11 19:10 Order name: PT-INR; Complete Time: 20:10 kb 03/11 19:10 Order name: Troponin HS; Complete Time: 20:25 kb 03/11 22:10 Order name: Troponin High Sensitivity; Complete Time: 23:11 kb 03/11 19:10 Order name: XRAY Chest (1 view); Complete Time: 20:10 kb 03/11 20:11 Order name: CT Chest For PE Angio; Complete Time: 21:01 kb 03/11 19:10 Order name: EKG; Complete Time: 19:11 kb 03/11 19:10 Order name: Cardiac monitoring; Complete Time: 19:25 kb 03/11 19:10 Order name: EKG - Nurse/Tech; Complete Time: 19:25 kb 03/11 19:10 Order name: IV Saline Lock; Complete Time: 20:22 kb 03/11 19:10 Order name: Labs collected and sent; Complete Time: 19:39 kb 03/11 19:10 Order name: O2 Per Protocol; Complete Time: 19:39 kb 03/11 19:10 Order name: O2 Sat Monitoring; Complete Time: 19:25 kb EC:23 Rate is 65 beats/min. Rhythm is regular. QRS [place] is Normal. FL interval is normal at kb 114 msec. QRS interval is normal at 72 msec. QT interval is normal at 416 msec. Administered Medications: 20:53 Drug: Ondansetron IVP 4 mg Route: IVP; Site: left antecubital; kd3 21:50 Follow up: Response: No adverse reaction; Marked relief of symptoms pf1 20:54 Drug: [place] PO 10 mg-325 mg 1 tabs Route: PO; kd3 21:50 Follow up: Response: No adverse reaction; Marked relief of symptoms; Pain is decreased; pf1 RASS: Alert and Calm (0) Disposition Summary: 03/11/23 23:12 Discharge Ordered Location: Home kb Condition: Stable kb Diagnosis - Chest pain, unspecified kb Followup: kb - With: Emergency Department - When: As needed - Reason: Worsening of condition Followup: kb - With: Private Physician - When: 2 - 3 days - Reason: Recheck today's complaints, Continuance of care, Re-evaluation by your physician Discharge Instructions: - Discharge Summary Sheet kb - Nonspecific Chest Pain, Adult, [id number] kb Forms: - Medication Reconciliation Form kb - Thank You Letter kb - Antibiotic Education kb - Prescription Opioid Use kb Addendum: 03/16/2023 07:03 Co-signature as Attending Physician, Tony Love MD I reviewed the patient's care r t provided by the Advanced Practice Provider and agree with the diagnosis and treatment plan. Signatures: Dispatcher [employer] Haydee Shah, MARLO POWELL-Ayleen Reid RN RN kd3 Tiarra Salmon RN RN vc1 Tony Love MD MD rt Emily Dewitt RN pf1
[2023-03-12 00:23] VITALS: TEMP 98
[2023-03-12 00:28] VITALS: BP 118/65; O2SAT 93
--- NOTE | 2023-03-13 14:46 | EKG ---
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
== END 2023-03-11 23:41 | disposition home or self-care (01) ==
LOC: ER 19:07
DX: R07.89 Other chest pain (principal); I10 Essential (primary) hypertension; E78.5 Hyperlipidemia, unspecified; Z88.5 Allergy status to narcotic agent
CPT/HCPCS: 93005; 85025; 80048; 36415; 83735; 85610; 85379; 80076; 84484 ×2; 83880; 71275; 71045; 96374; 99285; Q9967; J2405